=== PATIENT | female | born 1970 | race Caucasian/White ===

== ENCOUNTER 2018-12-22 21:04 | Emergency (ER) | payer OTHER ==
[~2018-12-22] VITALS: Ht 157.5 cm; Wt 102.1 kg
--- NOTE | 2018-12-22 21:28 | NUR ---
Dr. Curry GIL MD at bedside to evaluate pt.
[2018-12-22] MEDS ORDERED: MAGNESIUM SULFATE 2 GM in IV DEXTROSE 5% 100 ML IV ONE (21:30)
[2018-12-22] MEDS ORDERED: IPRATROPIUM BROMIDE 0.5 MG/2.5 ML NEBU NEB ONE (21:30)
[2018-12-22] MEDS ORDERED: ALBUTEROL SULFATE 2.5 MG/3 ML NEBU NEB ONE (21:30)
[2018-12-22] MEDS ORDERED: methylPREDNISolone SOD SUCC 125 MG/2 ML VIAL IV ONE (21:30)
[2018-12-22] MEDS ORDERED: ALBUTEROL SULFATE 2.5 MG/3 ML NEBU ONE (21:39)
[2018-12-22] MEDS ORDERED: IPRATROPIUM BROMIDE 0.5 MG/2.5 ML NEBU ONE (21:39)
[2018-12-22] MEDS ORDERED: MAGNESIUM SULFATE/D5W 200 ML ONE (21:41)
[2018-12-22] MEDS ORDERED: methylPREDNISolone SOD SUCC 125 MG/2 ML VIAL ONE (21:41)
[2018-12-22] MEDS ORDERED: HYDROMORPHONE 1 MG/1 ML DISP.SYRIN IV ONE ×2 (21:45→22:45)
[2018-12-22] MEDS ORDERED: ONDANSETRON IV *ER 4 MG/2 ML VIAL IV ONE ×2 (21:45→22:45)
[2018-12-22] MEDS ORDERED: ONDANSETRON 4 MG/2 ML VIAL ONE ×2 (21:48→22:38)
[2018-12-22] MEDS ORDERED: HYDROMORPHONE 1 MG/1 ML DISP.SYRIN ONE ×2 (21:48→22:38)
--- NOTE | 2018-12-22 23:25 | NUR ---
PATIENT STATES "I FEEL BETTER NOW."
--- NOTE | 2018-12-22 23:30 | NUR ---
IV removed. Catheter intact and site benign. Pressure and 4x4 gauze applied to site. No bleeding noted.
[2018-12-22 23:33] VITALS: BP 128/77
--- NOTE | 2018-12-22 23:33 | NUR ---
Patient discharged to home in stable conditon WITH DAUGHTER TAKING PATIENT HOME. Written and verbal after care instructions given. Patient verbalizes understanding of instructions. WALKED OUT OF ER WITH NO DISTRESS NOTED
== END 2018-12-22 23:34 | disposition home or self-care (01) ==
LOC: ER 21:08
DX: J45.909 Unspecified asthma, uncomplicated (principal); F17.200 Nicotine dependence, unspecified, uncomplicated; Z88.8 Allergy status to other drugs, medicaments and biological substances; Z91.040 Latex allergy status; Z88.0 Allergy status to penicillin
CPT/HCPCS: 71045; 94640; 96365; 96366; 96375; 96376; 99283; J1170 ×2; J2405 ×2; J2930; J3475; A4663; J3590

== ENCOUNTER 2018-12-28 23:21 | Emergency (ER) | payer OTHER ==
[~2018-12-28] VITALS: Ht 157.5 cm; Wt 98.4 kg
[2018-12-28] MEDS ORDERED: LORA0.5T PO (23:37)
[2018-12-28] MEDS ORDERED: PRED20TA PO (23:37)
[2018-12-28] MEDS ORDERED: THEO400T PO (23:37)
[2018-12-28] MEDS ORDERED: CETI-102 PO (23:37)
[2018-12-28] MEDS ORDERED: NYST5ORA PO (23:37)
[2018-12-28] MEDS ORDERED: ESCI20TA PO (23:37)
[2018-12-28] MEDS ORDERED: ALBU8HFA4 INH (23:37)
[2018-12-28] MEDS ORDERED: FLEXERIL PO (23:37)
[2018-12-28] MEDS ORDERED: MONT10TA22 PO (23:37)
[2018-12-28] MEDS ORDERED: ZOLP5TAB2 PO (23:37)
[2018-12-28] MEDS ORDERED: OXYC-133 PO (23:37)
[2018-12-28] MEDS ORDERED: BUDE10.2 IH (23:37)
[2018-12-28] MEDS ORDERED: IPRA3AMP22 IH (23:37)
[2018-12-28] MEDS ORDERED: SUMA50TA17 PO (23:37)
[2018-12-28] MEDS ORDERED: RANI150T43 PO (23:37)
[2018-12-28] MEDS ORDERED: ALBU2SYR10 IH (23:37)
[2018-12-28] MEDS ORDERED: ALBUTEROL SULFATE 2.5 MG/3 ML NEBU ONE (23:59)
[2018-12-28] MEDS ORDERED: IPRATROPIUM BROMIDE 0.5 MG/2.5 ML NEBU ONE (23:59)
[2018-12-29] MEDS ORDERED: IPRATROPIUM BROMIDE 0.5 MG/2.5 ML NEBU NEB ONE
[2018-12-29] MEDS ORDERED: ALBUTEROL SULFATE 2.5 MG/3 ML NEBU NEB ONE
[2018-12-29 00:04] LABS: BASOPHILS # (AUTO) 0.1 K/uL (0.0-8.0); BASOPHILS % (AUTO) 0.8 % (0.0-2.0); EOSINOPHILS # (AUTO) 0.2 K/uL (0.0-0.7); EOSINOPHILS % (AUTO) 1.2 % (0.0-7.0); HEMATOCRIT 38.4 % (31.2-41.9); HEMOGLOBIN 12.3 g/dL (10.9-14.3); LYMPHOCYTES # (AUTO) 5.8 K/uL (20.0-40.0); LYMPHOCYTES % (AUTO) 37.8 % (20.5-51.5); MEAN CORPUSCULAR HEMOGLOBIN 25.9 uug (24.7-32.8); MEAN CORPUSCULAR HGB CONC 32 g/dL (32.3-35.6); MONOCYTES # (AUTO) 0.9 K/uL (2.0-10.0); MONOCYTES % (AUTO) 5.8 % (0.0-11.0); NEUTROPHILS # (AUTO) 8.4 K/uL (1.8-8.9); NEUTROPHILS % (AUTO) 54.4 % (38.5-71.5); PLATELET COUNT (AUTO) 250 K/uL (179-408); RED BLOOD CELL COUNT(AUTO) 4.74 MIL/uL (3.63-4.92); WHITE BLOOD COUNT (AUTO) 15.4 K/uL (3.8-11.8)
[2018-12-29 00:15] LABS: CREATININE 1.1 mg/dL (0.6-1.3); POTASSIUM 3.3 mmol/L (3.5-5.1)
--- NOTE | 2018-12-29 00:15 | NUR ---
Called for med/surg bed - pt. to go into 318,
--- NOTE | 2018-12-29 00:16 | NUR ---
Called [facility] for panel call - awaiting call back from Dr. Tavarez,
[2018-12-29] MEDS ORDERED: HYDROMORPHONE 1 MG/1 ML DISP.SYRIN ONE (00:29)
[2018-12-29] MEDS ORDERED: HYDROMORPHONE 1 MG/1 ML DISP.SYRIN IV ONE (00:30)
[2018-12-29] MEDS ORDERED: ONDANSETRON 4 MG/2 ML VIAL ONE (00:38)
--- NOTE | 2018-12-29 00:39 | NUR ---
Dr. Rahman spoke with Dr. Corby Polk on telephone. Pending med/surg admission.
[2018-12-29] MEDS ORDERED: ONDANSETRON 4 MG/2 ML VIAL IV ONE (00:45)
[2018-12-29] MEDS ORDERED: POTASSIUM CHLORIDE 20 MEQ TAB.PRT.SR PO ONE (01:00)
[2018-12-29] MEDS ORDERED: POTASSIUM CHLORIDE 20 MEQ TAB.PRT.SR ONE (01:04)
--- NOTE | 2018-12-29 01:07 | NUR ---
Patient does not wish to proceed with medical care recommended by Dr. Rahman. Patient given information related to possible complications, up to and including , which could occur as a result of leaving the hospital at this time. Patient verbalizes understanding of risks involved due to leaving against medical advice. Patient has signed AMA form. Pt refuses inpatient admission.
--- NOTE | 2018-12-29 01:08 | NUR ---
IV removed. Catheter intact and site benign. Pressure and 4x4 gauze applied to site. No bleeding noted.
--- NOTE | 2018-12-29 01:09 | NUR ---
Patient discharged to home in stable conditon. Written and verbal after care instructions given. Patient verbalizes understanding of instructions. Pt walked out of ER in stable gait. Pt states, "My breathing is so much better." Pt's daughter is with her who will drive her home. All belongings w pt. VSS. NAD noted. Respirations even + unlabored.
[2018-12-29 01:12] VITALS: BP 117/86
== END 2018-12-29 01:12 | disposition home or self-care (01) ==
LOC: ER 23:21
DX: J44.9 Chronic obstructive pulmonary disease, unspecified (principal); F17.200 Nicotine dependence, unspecified, uncomplicated; Z88.8 Allergy status to other drugs, medicaments and biological substances; Z91.040 Latex allergy status; Z88.0 Allergy status to penicillin; Z79.899 Other long term (current) drug therapy
CPT/HCPCS: 36415; 80048; 85025; 93005; 94644; 96374; 96375; 99285; J1170; J2405; A4663; J3590

== ENCOUNTER 2019-01-06 20:35 | Emergency (ER) | payer OTHER ==
[~2019-01-06] VITALS: Ht 157.5 cm; Wt 98.4 kg
[~2019-01-06 20:35] MED LIST: ALBU2SYR10 IH; ALBU8HFA4 INH; BUDE10.2 IH; CETI-102 PO; ESCI20TA PO; FLEXERIL PO; IPRA3AMP22 IH; LORA0.5T PO; MONT10TA22 PO; NYST5ORA PO; OXYC-133 PO; PRED20TA PO; RANI150T43 PO; SUMA50TA17 PO; THEO400T PO; ZOLP5TAB2 PO
--- NOTE | 2019-01-06 21:10 | NUR ---
Pt walks into ER with multiple complaints. Pt state she is having jaw pain & right side rib pain x 2 weeks, & redness & swelling to left arm x 5 days. Pt states she saw her training intern & had cxr which was negative. EKG done. Pt placed on continuous cardiac monitoring showing NSR. Denies any chest pain. No N/V/D. Will continue to monitor. No acute distress noted. SA02 97% room air.
[2019-01-06] MEDS ORDERED: VANCOMYCIN IV 1,000 MG in IV DEXTROSE 5% 250 ML IV ONE (21:15)
[2019-01-06] MEDS ORDERED: IPRATROPIUM BROMIDE 0.5 MG/2.5 ML NEBU NEB ONE (21:15)
[2019-01-06] MEDS ORDERED: IV NORMAL SALINE 1000 ML BAG IV ONE (21:15)
[2019-01-06] MEDS ORDERED: OXYCODONE/APAP 5-325 MG TABLET PO ONE (21:15)
[2019-01-06] MEDS ORDERED: ALBUTEROL SULFATE 2.5 MG/3 ML NEBU NEB ONE ×2 (21:15→23:00)
[2019-01-06] MEDS ORDERED: ALBUTEROL SULFATE 2.5 MG/3 ML NEBU ONE ×2 (21:24→22:58)
[2019-01-06] MEDS ORDERED: IPRATROPIUM BROMIDE 0.5 MG/2.5 ML NEBU ONE (21:24)
[2019-01-06] MEDS ORDERED: VANCOMYCIN IV 200 ML ONE (21:33)
[2019-01-06] MEDS ORDERED: OXYCODONE/APAP 5-325 MG TABLET ONE ×2 (21:33→21:34)
[2019-01-06 21:39] LABS: BASOPHILS # (AUTO) 0.1 K/uL (0.0-8.0); BASOPHILS % (AUTO) 0.4 % (0.0-2.0); EOSINOPHILS # (AUTO) 0.1 K/uL (0.0-0.7); EOSINOPHILS % (AUTO) 0.8 % (0.0-7.0); HEMATOCRIT 38.8 % (31.2-41.9); HEMOGLOBIN 12.4 g/dL (10.9-14.3); LYMPHOCYTES # (AUTO) 3.2 K/uL (20.0-40.0); LYMPHOCYTES % (AUTO) 24.4 % (20.5-51.5); MEAN CORPUSCULAR HGB CONC 32 g/dL (32.3-35.6); MEAN CORPUSCULAR VOLUME 81.3 fL (75.5-95.3); MONOCYTES # (AUTO) 0.9 K/uL (2.0-10.0); MONOCYTES % (AUTO) 6.8 % (0.0-11.0); NEUTROPHILS % (AUTO) 67.6 % (38.5-71.5); PLATELET COUNT (AUTO) 242 K/uL (179-408); RED BLOOD CELL COUNT(AUTO) 4.77 MIL/uL (3.63-4.92); WHITE BLOOD COUNT (AUTO) 13.3 K/uL (3.8-11.8)
[2019-01-06 21:49] LABS: CREATININE 0.7 mg/dL (0.6-1.3); POTASSIUM 3.6 mmol/L (3.5-5.1)
[2019-01-06 21:55] LABS: BILIRUBIN,DIRECT 0.1 mg/dL (0.0-0.2); BILIRUBIN,TOTAL 0.1 mg/dL (0.2-1.0); TOTAL PROTEIN, SERUM 6.3 g/dL (6.4-8.2)
[2019-01-06] MEDS ORDERED: ONDANSETRON 4 MG/2 ML VIAL IV ONE (23:00)
[2019-01-06] MEDS ORDERED: HYDROMORPHONE 1 MG/1 ML DISP.SYRIN IV ONE (23:00)
[2019-01-06] MEDS ORDERED: HYDROMORPHONE 1 MG/1 ML DISP.SYRIN ONE (23:07)
[2019-01-06] MEDS ORDERED: ONDANSETRON 4 MG/2 ML VIAL ONE (23:07)
--- NOTE | 2019-01-06 23:38 | NUR ---
Pt states she feels better. No acute distress noted.
--- NOTE | 2019-01-07 00:14 | NUR ---
Patient discharged to home in stable conditon. Written and verbal after care instructions given. Patient verbalizes understanding of instructions. Pt left ER in stable gait. All belongings w pt. VSS. No acute distress noted. Pt family to drive her home.
--- NOTE | 2019-01-07 00:14 | NUR ---
ivIV removed. Catheter intact and site benign. Pressure and 4x4 gauze applied to site. No bleeding noted.
[2019-01-07 00:42] VITALS: BP 145/82
== END 2019-01-07 00:44 | disposition home or self-care (01) ==
LOC: ER 20:35
DX: J45.901 Unspecified asthma with (acute) exacerbation (principal); L53.9 Erythematous condition, unspecified; K21.9 Gastro-esophageal reflux disease without esophagitis; F17.200 Nicotine dependence, unspecified, uncomplicated; Z88.8 Allergy status to other drugs, medicaments and biological substances; Z91.040 Latex allergy status; Z88.0 Allergy status to penicillin; Z79.899 Other long term (current) drug therapy
CPT/HCPCS: 36415; 71045; 80048; 80076; 84484; 85025; 93005; 94640 ×2; 96365; 96375; 99291; J1170; J2405; J3370; 70030-TC; A4663; J3590; J7030

== ENCOUNTER 2019-02-13 20:49 | Emergency (ER) | payer OTHER ==
[~2019-02-13] VITALS: Ht 157.5 cm; Wt 98.0 kg
[~2019-02-13 20:49] MED LIST changes: +RANI-655 PO; -RANI150T43 PO
[2019-02-13] MEDS ORDERED: PRED20TA PO (20:57)
--- NOTE | 2019-02-13 21:00 | NUR ---
PATIENT WALKED INTO ER C/O SOB WITH COUGH DUE TO ASTHMA X1 WEEK. PATIENT C/O CP DUE TO COUGH. HERE FOR WORSENING SYMPTOMS
[2019-02-13] MEDS ORDERED: methylPREDNISolone SOD SUCC 125 MG/2 ML VIAL ONE (21:30)
[2019-02-13] MEDS ORDERED: ALBUTEROL SULFATE 2.5 MG/3 ML NEBU NEB ONE (21:30)
[2019-02-13] MEDS ORDERED: methylPREDNISolone SOD SUCC 125 MG/2 ML VIAL IV ONE (21:30)
[2019-02-13] MEDS ORDERED: IV NORMAL SALINE 1000 ML BAG IV ONE (21:30)
[2019-02-13] MEDS ORDERED: IPRATROPIUM BROMIDE 0.5 MG/2.5 ML NEBU NEB ONE (21:30)
[2019-02-13] MEDS ORDERED: ALBUTEROL SULFATE 2.5 MG/3 ML NEBU ONE (21:31)
[2019-02-13] MEDS ORDERED: IPRATROPIUM BROMIDE 0.5 MG/2.5 ML NEBU ONE (21:31)
[2019-02-13] MEDS ORDERED: ALBUTEROL SULFATE 2.5 MG/ 0.5 ML NEBU ONE (21:31)
[2019-02-13 21:34] LABS: BASOPHILS # (AUTO) 0.1 K/uL (0.0-8.0); EOSINOPHILS # (AUTO) 0.1 K/uL (0.0-0.7); MONOCYTES # (AUTO) 0.9 K/uL (2.0-10.0)
[2019-02-13 21:37] LABS: BASOPHILS % (AUTO) 0.5 % (0.0-2.0); EOSINOPHILS % (AUTO) 0.4 % (0.0-7.0); HEMATOCRIT 40.2 % (31.2-41.9); HEMOGLOBIN 13.3 g/dL (10.9-14.3); LYMPHOCYTES # (AUTO) 3.9 K/uL (20.0-40.0); LYMPHOCYTES % (AUTO) 23.1 % (20.5-51.5); MEAN CORPUSCULAR HEMOGLOBIN 27.4 uug (24.7-32.8); MEAN CORPUSCULAR HGB CONC 33 g/dL (32.3-35.6); MEAN CORPUSCULAR VOLUME 82.9 fL (75.5-95.3); MONOCYTES % (AUTO) 5.3 % (0.0-11.0); NEUTROPHILS # (AUTO) 11.9 K/uL (1.8-8.9); NEUTROPHILS % (AUTO) 70.7 % (38.5-71.5); PLATELET COUNT (AUTO) 292 K/uL (179-408); RED BLOOD CELL COUNT(AUTO) 4.84 MIL/uL (3.63-4.92); WHITE BLOOD COUNT (AUTO) 16.8 K/uL (3.8-11.8)
[2019-02-13 21:43] LABS: CARBON DIOXIDE 30 mmol/L (21-32); CHLORIDE 104 mmol/L (98-107); CREATININE 0.9 mg/dL (0.6-1.3); GLUCOSE 140 mg/dL (74-106); POTASSIUM 3.5 mmol/L (3.5-5.1); UREA NITROGEN, BLOOD 21 mg/dL (7-18)
[2019-02-13] MEDS ORDERED: FENTANYL CITRATE 100 MCG/2 ML AMPUL IV ONE (21:45)
[2019-02-13] MEDS ORDERED: FENTANYL CITRATE 100 MCG/2 ML AMPUL ONE (21:53)
[2019-02-13 21:55] LABS: ALANINE AMINOTRANSFERASE 34 U/L (14-59); ALKALINE PHOSPHATASE 83 U/L (50-136); ASPARTATE AMINOTRANSFERASE 12 U/L (15-37); BILIRUBIN,DIRECT < 0.1 mg/dL (0.0-0.2); BILIRUBIN,TOTAL 0.2 mg/dL (0.2-1.0); TOTAL PROTEIN, SERUM 6.8 g/dL (6.4-8.2)
[2019-02-13] MEDS ORDERED: IOHEXOL 350 100 ML INFUS..BTL ONE (22:27)
[2019-02-13] MEDS ORDERED: SWABABLE VALVE TRANSFER SET EA MC ONE (22:27)
[2019-02-13] MEDS ORDERED: IV NORMAL SALINE 250 ML IV ONE (22:27)
--- NOTE | 2019-02-13 22:33 | NUR ---
PATIENT OUT OF UNIT FOR CT SCAN VIA GURNY
--- NOTE | 2019-02-13 22:55 | NUR ---
PATIENT BACK FROM CT SCAN C/O CHEST WALL PAIN
--- NOTE | 2019-02-13 22:58 | NUR ---
PATIENT C/O CHEST WALL PAIN STATING "THE PAIN CAME BACK AFTER THE CT SCAN."
[2019-02-13] MEDS ORDERED: ONDANSETRON IV *ER 4 MG/2 ML VIAL IV ONE (23:15)
[2019-02-13] MEDS ORDERED: HYDROMORPHONE 1 MG/1 ML DISP.SYRIN IV ONE (23:15)
[2019-02-13] MEDS ORDERED: HYDROMORPHONE 1 MG/1 ML DISP.SYRIN ONE (23:19)
[2019-02-13] MEDS ORDERED: ONDANSETRON 4 MG/2 ML VIAL ONE (23:19)
--- NOTE | 2019-02-13 23:57 | NUR ---
IV removed. Catheter intact and site benign. Pressure and 4x4 gauze applied to site. No bleeding noted.
[2019-02-14 00:02] VITALS: BP 120/74
== END 2019-02-14 00:03 | disposition home or self-care (01) ==
LOC: ER 20:51
DX: J44.9 Chronic obstructive pulmonary disease, unspecified (principal); J45.901 Unspecified asthma with (acute) exacerbation; K21.9 Gastro-esophageal reflux disease without esophagitis; F17.200 Nicotine dependence, unspecified, uncomplicated; Z88.8 Allergy status to other drugs, medicaments and biological substances; Z91.040 Latex allergy status; Z88.0 Allergy status to penicillin; Z79.891 Long term (current) use of opiate analgesic; Z79.899 Other long term (current) drug therapy
CPT/HCPCS: 36415; 71045; 71275; 80048; 80076; 83880; 84484; 85025; 85379; 85730; 93005; 94644; 96374; 96375; 99285; J1170; J2405; J2930; J3010; Q9967; 70030-TC; A4663; J3590; J7030; J7050

== ENCOUNTER 2019-02-14 19:29 | Emergency (ER) | payer OTHER ==
[~2019-02-14] VITALS: Ht 157.5 cm; Wt 98.4 kg
--- NOTE | 2019-02-14 19:39 | NUR ---
DR. ESPINAL AT BEDSIDE FOR MSE.
[2019-02-14] MEDS ORDERED: ALBUTEROL SULFATE 2.5 MG/3 ML NEBU NEB ONE (19:45)
[2019-02-14] MEDS ORDERED: IPRATROPIUM BROMIDE 0.5 MG/2.5 ML NEBU NEB ONE (19:45)
[2019-02-14] MEDS ORDERED: predniSONE 10 MG TABLET PO ONE (19:45)
[2019-02-14] MEDS ORDERED: HYDROMORPHONE HCL 2 MG TABLET PO ONE (19:45)
[2019-02-14] MEDS ORDERED: HYDROMORPHONE HCL 2 MG TABLET ONE (19:49)
[2019-02-14] MEDS ORDERED: predniSONE 10 MG TABLET ONE (19:49)
[2019-02-14] MEDS ORDERED: ALBUTEROL SULFATE 2.5 MG/3 ML NEBU ONE (19:53)
[2019-02-14] MEDS ORDERED: IPRATROPIUM BROMIDE 0.5 MG/2.5 ML NEBU ONE (19:53)
--- NOTE | 2019-02-14 20:07 | NUR ---
Patient discharged to home in stable conditon. Written and verbal after care instructions given. Patient verbalizes understanding of instructions. PATIENT LEFT WITH STABLE GAIT.
[2019-02-14 20:08] VITALS: BP 147/82
== END 2019-02-14 20:08 | disposition home or self-care (01) ==
LOC: ER 19:31
DX: J44.1 Chronic obstructive pulmonary disease with (acute) exacerbation (principal); Z71.6 Tobacco abuse counseling; K21.9 Gastro-esophageal reflux disease without esophagitis; F17.290 Nicotine dependence, other tobacco product, uncomplicated; Z88.0 Allergy status to penicillin; Z88.8 Allergy status to other drugs, medicaments and biological substances; Z91.040 Latex allergy status; Z79.899 Other long term (current) drug therapy
CPT/HCPCS: 94640; 99283; 99406; J7512; A4663; J3590

== ENCOUNTER 2019-02-20 21:41 | Emergency (ER) | payer OTHER ==
[~2019-02-20] VITALS: Ht 157.5 cm; Wt 98.4 kg
[~2019-02-20 21:41] MED LIST changes: -RANI-655 PO; +RANI150T43 PO
[2019-02-20] MEDS ORDERED: PRED20TA PO (22:16)
--- NOTE | 2019-02-20 23:00 | NUR ---
PATIENT WAS MSE BY DR YEPEZ IN ROOM 05A.
[2019-02-20] MEDS ORDERED: HYDROCODONE/APAP 10-325 MG TABLET ONE (23:15)
[2019-02-20] MEDS ORDERED: HYDROCODONE/APAP 10-325 MG TABLET PO ONE (23:15)
[2019-02-20 23:27] VITALS: BP 128/79
--- NOTE | 2019-02-20 23:28 | NUR ---
Patient discharged to home in stable conditon. Written and verbal after care instructions given. Patient and daughter verbalizes understanding of instructions.
== END 2019-02-20 23:38 | disposition home or self-care (01) ==
LOC: ER 21:41
DX: G89.29 Other chronic pain (principal); R09.1 Pleurisy; J45.909 Unspecified asthma, uncomplicated; K21.9 Gastro-esophageal reflux disease without esophagitis; F17.200 Nicotine dependence, unspecified, uncomplicated; Z88.0 Allergy status to penicillin; Z88.8 Allergy status to other drugs, medicaments and biological substances; Z91.040 Latex allergy status; Z79.899 Other long term (current) drug therapy
CPT/HCPCS: 93005; A4663

== ENCOUNTER 2019-02-27 18:56 | Emergency (ER) | payer OTHER ==
[~2019-02-27] VITALS: Ht 157.5 cm; Wt 98.4 kg
--- NOTE | 2019-02-27 19:20 | NUR ---
Patient ambulated with stable gait. Speech is clear, speaks in complete sentences. No neuro deficits. Patient came for c/o coughing/shortness of breath/ pain. @ 1500 patient reported having an asthma attack at home, she reported having x5 breathing tx - albuterol+ipratropium and lead to unresolved symptoms. She stated she is expectorating phlegm that is yellow-green in color. Wheezing noted in all lobes of left lung, and base of right lung.No cardiovascular distress noted. Patient c/o pain in her RLQ of abdomen, when she coughs. Patient in bed at lowest position, sr upx2, call light within reach. Fall precautinos implemented per protocol.
--- NOTE | 2019-02-27 19:28 | NUR ---
ERMD at bedside for MSE
[2019-02-27] MEDS ORDERED: ONDANSETRON 4 MG/2 ML VIAL IM ONE ×2 (19:30→21:00)
[2019-02-27] MEDS ORDERED: IPRATROPIUM BROMIDE 0.5 MG/2.5 ML NEBU NEB ONE (19:30)
[2019-02-27] MEDS ORDERED: ALBUTEROL SULFATE 2.5 MG/3 ML NEBU NEB ONE (19:30)
[2019-02-27] MEDS ORDERED: HYDROMORPHONE 1 MG/1 ML DISP.SYRIN IM ONE ×2 (19:30→21:00)
[2019-02-27] MEDS ORDERED: ONDANSETRON 4 MG/2 ML VIAL ONE ×2 (19:36→21:27)
[2019-02-27] MEDS ORDERED: HYDROMORPHONE 2 MG/1 ML DISP.SYRIN ONE ×2 (19:36→21:27)
[2019-02-27] MEDS ORDERED: ALBUTEROL SULFATE 2.5 MG/3 ML NEBU ONE (19:56)
[2019-02-27] MEDS ORDERED: IPRATROPIUM BROMIDE 0.5 MG/2.5 ML NEBU ONE (19:56)
--- NOTE | 2019-02-27 21:06 | NUR ---
US tech at bedside for scan of gallbladder.
--- NOTE | 2019-02-27 21:20 | NUR ---
Patient discharged to home in stable conditon. Written and verbal after care instructions given. Patient verbalizes understanding of instructions. Patient ambulated with stable gait. Instructed patient not to drive, states daughter will be driving.
[2019-02-27 22:10] VITALS: BP 128/71
== END 2019-02-27 21:20 | disposition home or self-care (01) ==
LOC: ER 19:00
DX: J06.9 Acute upper respiratory infection, unspecified (principal); R10.11 Right upper quadrant pain; J45.909 Unspecified asthma, uncomplicated; K21.9 Gastro-esophageal reflux disease without esophagitis; F17.200 Nicotine dependence, unspecified, uncomplicated; Z88.0 Allergy status to penicillin; Z88.8 Allergy status to other drugs, medicaments and biological substances; Z91.040 Latex allergy status; Z79.899 Other long term (current) drug therapy
CPT/HCPCS: 71045; 76705; 94640; 96372 ×4; 99284; J1170 ×2; J2405 ×2; A4663; J3590

== ENCOUNTER 2019-03-12 22:27 | Inpatient (IN) | payer OTHER ==
[~2019-03-12] VITALS: Ht 157.5 cm; Wt 104.4 kg
[2019-03-12] MEDS ORDERED: ONDANSETRON HYDROCHLORIDE 4 MG (22:44)
[2019-03-12] MEDS ORDERED: CEFTRIAXONE 1 G in IV DEXTROSE 5% 50 ML IV ONE (22:45)
[2019-03-12] MEDS ORDERED: IV NORMAL SALINE 1000 ML BAG IV ONE (22:45)
--- NOTE | 2019-03-12 22:45 | NUR ---
DR. ESPINAL AT [facility] FOR MSE.
--- NOTE | 2019-03-12 22:50 | NUR ---
PATIENT WALKED IN FROM HOME, ALERT AND ORIENTED X4, WITH C/O GENERALIZED BODY, AND SHORTNESS OF BREATH. EKG DONE, IV LINE ESTABLISHED AND BLOOD DRAWN.
[2019-03-12 23:03] LABS: BASOPHILS # (AUTO) 0.1 K/uL (0.0-8.0); BASOPHILS % (AUTO) 0.7 % (0.0-2.0); EOSINOPHILS # (AUTO) 0.4 K/uL (0.0-0.7); EOSINOPHILS % (AUTO) 1.9 % (0.0-7.0); HEMATOCRIT 43.1 % (31.2-41.9); HEMOGLOBIN 13.5 g/dL (10.9-14.3); LYMPHOCYTES # (AUTO) 5.3 K/uL (20.0-40.0); LYMPHOCYTES % (AUTO) 28.2 % (20.5-51.5); MEAN CORPUSCULAR HEMOGLOBIN 26.2 uug (24.7-32.8); MEAN CORPUSCULAR HGB CONC 31 g/dL (32.3-35.6); MEAN CORPUSCULAR VOLUME 83.5 fL (75.5-95.3); MONOCYTES # (AUTO) 1.3 K/uL (2.0-10.0); MONOCYTES % (AUTO) 6.9 % (0.0-11.0); NEUTROPHILS # (AUTO) 11.7 K/uL (1.8-8.9); NEUTROPHILS % (AUTO) 62.3 % (38.5-71.5); PLATELET COUNT (AUTO) 315 K/uL (179-408); RED BLOOD CELL COUNT(AUTO) 5.16 MIL/uL (3.63-4.92); WHITE BLOOD COUNT (AUTO) 18.8 K/uL (3.8-11.8)
[2019-03-12] MEDS ORDERED: CEFTRIAXONE 1 G VIAL ONE (23:06)
[2019-03-12 23:10] LABS: CREATININE 1.1 mg/dL (0.6-1.3); POTASSIUM 3.8 mmol/L (3.5-5.1)
[2019-03-12] MEDS ORDERED: IPRATROPIUM BROMIDE 0.5 MG/2.5 ML NEBU NEB ONE (23:15)
[2019-03-12] MEDS ORDERED: MORPHINE SULFATE 10 MG/1 ML DISP.SYRIN IV ONE (23:15)
[2019-03-12] MEDS ORDERED: methylPREDNISolone SOD SUCC 125 MG/2 ML VIAL IV ONE (23:15)
[2019-03-12] MEDS ORDERED: ONDANSETRON IV *ER 4 MG/2 ML VIAL IV ONE (23:15)
[2019-03-12] MEDS ORDERED: GUAIFENESIN/CODEINE 5 ML LIQUID UDC PO ONE (23:15)
[2019-03-12] MEDS ORDERED: ALBUTEROL SULFATE 2.5 MG/3 ML NEBU NEB ONE (23:15)
[2019-03-12] MEDS ORDERED: methylPREDNISolone SOD SUCC 125 MG/2 ML VIAL ONE (23:18)
[2019-03-12] MEDS ORDERED: GUAIFENESIN/CODEINE 5 ML LIQUID UDC ONE ×2 (23:18→23:19)
[2019-03-12] MEDS ORDERED: ONDANSETRON 4 MG/2 ML VIAL ONE (23:18)
[2019-03-12 23:23] LABS: BILIRUBIN,DIRECT 0.1 mg/dL (0.0-0.2); BILIRUBIN,TOTAL 0.5 mg/dL (0.2-1.0); TOTAL PROTEIN, SERUM 7.4 g/dL (6.4-8.2)
[2019-03-12] MEDS ORDERED: MORPHINE SULFATE 2 MG/1 ML DISP.SYRIN ONE (23:24)
[2019-03-12] MEDS ORDERED: MORPHINE SULFATE 4 MG/1 ML DISP.SYRIN ONE (23:24)
[2019-03-12] MEDS ORDERED: ALBUTEROL SULFATE 2.5 MG/3 ML NEBU ONE (23:26)
[2019-03-12] MEDS ORDERED: IPRATROPIUM BROMIDE 0.5 MG/2.5 ML NEBU ONE (23:26)
[2019-03-13] MEDS ORDERED: HYDROMORPHONE 1 MG/1 ML DISP.SYRIN IV ONE ×2 (00:15→02:00)
[2019-03-13] MEDS ORDERED: HYDROMORPHONE 1 MG/1 ML DISP.SYRIN ONE ×2 (00:22→02:22)
[2019-03-13] MEDS ORDERED: SWABABLE VALVE TRANSFER SET EA MC ONE (00:34)
[2019-03-13] MEDS ORDERED: IV NORMAL SALINE 250 ML IV ONE (00:35)
[2019-03-13] MEDS ORDERED: IOHEXOL 350 100 ML INFUS..BTL ONE (00:35)
--- NOTE | 2019-03-13 01:04 | NUR ---
PATIENT BACK FROM CT SCAN.
[2019-03-13] MEDS ORDERED: ONDANSETRON 4 MG/2 ML VIAL ONE (01:30)
[2019-03-13] MEDS ORDERED: ONDANSETRON IV *ER 4 MG/2 ML VIAL IV ONE (01:30)
[2019-03-13] MEDS ORDERED: LEVOFLOXACIN 750MG/D5W 150 ML IV ONE (01:57)
[2019-03-13] MEDS ORDERED: LEVOFLOXACIN 750 MG/D5W 150 ML PIGGYBACK IV ONE (02:00)
--- NOTE | 2019-03-13 02:06 | NUR ---
LESLY CALLED, SERVANDO HUFFMAN, AWAITING CALL BACK.
--- NOTE | 2019-03-13 02:14 | NUR ---
Pt. admitted to TELE , under care of Dr. AL Belongs List completed.
[2019-03-13] MEDS ORDERED: Z GUARD REMEDY PASTE 57 GM TUBE TOP PRN (02:30)
[2019-03-13] MEDS ORDERED: HYDROCODONE/APAP 5-325MG TABLET PO PRN (02:30)
[2019-03-13] MEDS ORDERED: MAGNESIUM HYDROXIDE 30 ML LIQUID UDC PO PRN (02:30)
[2019-03-13] MEDS ORDERED: ACETAMINOPHEN 325 MG TABLET PO PRN (02:30)
[2019-03-13 02:43] LABS: *BILIRUBIN,URIN NEGATIVE (NEGATIVE); *CLARITY,URINE CLEAR (CLEAR); *COLOR,URINE YELLOW (YELLOW); *KETONES,URINE NEGATIVE (NEGATIVE); *UROBILINOGEN,URINE 0.2 E.U./dl (NORMAL); LEUKOCYTE ESTERASE ,URINE NEGATIVE (NEGATIVE); NITRITE, URINE NEGATIVE (NEGATIVE); PH,URINE 5.5 (5.0-8.0); UGLUCOSE NEGATIVE (NEGATIVE)
[2019-03-13 02:44] LABS: *BLOOD, URINE TRACE (NEGATIVE)
[2019-03-13 02:50] LABS: BACTERIA,URINE NONE SEEN /HPF (NONE SEEN); RBC,URINE 0-3 /HPF (0-3); SQUAMOUS EPITHELIAL CELL,UR FEW /HPF (NONE SEEN); WBC,URINE 0-3 /HPF (0-3)
[2019-03-13 03:10] VITALS: BP 120/62
--- NOTE | 2019-03-13 03:15 | NUR ---
Received patient from ER. Dx: PNA. Patient is A/Ox4, ambulated to bed with a steady gait. No signs of acute distress noted. Complains of sharp pain in the rib area when coughing. Patient belongings and list with patient. IV on the right AC with antibiotic running. Patient on 2L NC and about to received breathing treatment, noted with non-productive coughing. Vitals WNL. Safety measures initiated. Bed is low and locked, call light within reach. Will continue with admission process.
[2019-03-13] MEDS: IPRATROPIUM BROMIDE 0.5 MG/2.5 ML NEBU NEB SCH ×5 (03:19→19:28)
[2019-03-13] MEDS: ALBUTEROL SULFATE 2.5 MG/ 0.5 ML NEBU NEB SCH ×5 (03:19→19:28)
[2019-03-13] MEDS: ONDANSETRON 4 MG/2 ML VIAL IV PRN ×4 (04:03→23:55)
[2019-03-13] MEDS: HYDROMORPHONE 1 MG/1 ML DISP.SYRIN IV PRN ×5 (04:03→21:29)
[2019-03-13] MEDS: methylPREDNISolone SOD SUCC 125 MG/2 ML VIAL IV SCH ×3 (06:20→21:28)
[2019-03-13 06:23] LABS: BASOPHILS # (AUTO) 0.1 K/uL (0.0-8.0); BASOPHILS % (AUTO) 0.4 % (0.0-2.0); EOSINOPHILS % (AUTO) 0.1 % (0.0-7.0); HEMATOCRIT 38.8 % (31.2-41.9); HEMOGLOBIN 12.2 g/dL (10.9-14.3); LYMPHOCYTES % (AUTO) 8.1 % (20.5-51.5); MEAN CORPUSCULAR HEMOGLOBIN 26.7 uug (24.7-32.8); MEAN CORPUSCULAR HGB CONC 32 g/dL (32.3-35.6); MEAN CORPUSCULAR VOLUME 84.8 fL (75.5-95.3); MONOCYTES # (AUTO) 0.1 K/uL (2.0-10.0); MONOCYTES % (AUTO) 1.1 % (0.0-11.0); NEUTROPHILS # (AUTO) 11.4 K/uL (1.8-8.9); NEUTROPHILS % (AUTO) 90.3 % (38.5-71.5); PLATELET COUNT (AUTO) 274 K/uL (179-408); RED BLOOD CELL COUNT(AUTO) 4.58 MIL/uL (3.63-4.92); WHITE BLOOD COUNT (AUTO) 12.7 K/uL (3.8-11.8)
[2019-03-13 06:45] LABS: CREATININE 1.1 mg/dL (0.6-1.3); MAGNESIUM 1.7 mg/dL (1.8-2.4); PHOSPHOROUS 3.6 mg/dL (2.5-4.9); POTASSIUM 4.1 mmol/L (3.5-5.1)
[2019-03-13] MEDS ORDERED: ALBUTEROL SULFATE 2.5 MG/3 ML NEBU NEB SCH (07:05)
[2019-03-13] MEDS: ENOXAPARIN SODIUM 40 MG/0.4 ML DISP.SYRIN SQ SCH (08:30)
[2019-03-13] MEDS: MAGNESIUM SULFATE/D5W 100 ML IV SCH ×2 (10:49→12:16)
[2019-03-13] MEDS ORDERED: ONDA4TAB5 PO (11:27)
[2019-03-13] MEDS: IPRATROPIUM BROMIDE 0.5 MG/2.5 ML NEBU NEB PRN ×2 (11:40→22:05)
--- NOTE | 2019-03-13 11:40 | NUR ---
RT SELECTED THE PRN TX NOT THE W.A.
[2019-03-13 12:00] VITALS: BP 110/62
[2019-03-13 16:05] VITALS: BP 115/63
--- NOTE | 2019-03-13 18:15 | NUR ---
RECEIVED PATIENT FROM [facility]. PATIENT DENIES PAIN OF SOB AT THIS TIME. ALL NEEDS MET. SAFETY AND FALL PRECAUTIONS IN PLACE. WILL CONTINUE TO MONITOR AND WILL GIVE REPORT TO ONCOMING ISREAL SHIFT NURSE.
--- NOTE | 2019-03-13 19:30 | NUR ---
patient received lying in bed. a/ox4. no signs of acute distress. receiving nebulizer treatment at this time. provided comfort and safety measures. bed in lowest position, side rails upx2, call light within reach. will continue care for patient.
--- NOTE | 2019-03-13 21:29 | NUR ---
c/o of pain. dilaudid administered. tolerated well.
[2019-03-13] MEDS: ALBUTEROL SULFATE 2.5 MG/3 ML NEBU NEB PRN (22:05)
[2019-03-13] MEDS ORDERED: LEVOFLOXACIN 750MG/D5W 750 MG in PREMIXED 1 EACH IV SCH (23:00)
[2019-03-14] MEDS: HYDROMORPHONE 1 MG/1 ML DISP.SYRIN IV PRN ×3 (01:48→10:04)
--- NOTE | 2019-03-14 02:01 | NUR ---
c/o of pain. administered dilaudid. patient tolerated well.
[2019-03-14] MEDS: ALBUTEROL SULFATE 2.5 MG/3 ML NEBU NEB PRN (03:36)
[2019-03-14] MEDS: IPRATROPIUM BROMIDE 0.5 MG/2.5 ML NEBU NEB PRN (03:36)
[2019-03-14] MEDS: methylPREDNISolone SOD SUCC 125 MG/2 ML VIAL IV SCH (05:33)
--- NOTE | 2019-03-14 05:51 | NUR ---
c/o of pain. administered Dilaudid. tolerated well.
--- NOTE | 2019-03-14 06:33 | NUR ---
patient intermittently sleeping. a/o x4. no signs of acute distress. provided safety and comfort measures. all medications prescribed as well as pain medication dilaudid. patient tolerated well. iv intact and patent. will endorse care to morning nurse.
[2019-03-14 06:35] LABS: CREATININE 0.9 mg/dL (0.6-1.3); MAGNESIUM 2.2 mg/dL (1.8-2.4); POTASSIUM 4.1 mmol/L (3.5-5.1)
--- NOTE | 2019-03-14 07:10 | NUR ---
RECEIVED PATIENT LAYING IN BED RESTING, MILD DISTRESS NOTED PATIENT STATING IT WAS HARD TO CATCH BREATH. RESPIRATORY GIVING TREATMENT. PATIENT NOTED TO BE RED AND HOT TEMPERATURE TAKEN AND WNL. BED IN LOWEST POSITION, SIDE RAILS UP X2, CALL LIGHT WITHIN REACH. WILL CONTINUE TO MONITOR.
[2019-03-14] MEDS: IPRATROPIUM BROMIDE 0.5 MG/2.5 ML NEBU NEB SCH (07:34)
[2019-03-14] MEDS: ALBUTEROL SULFATE 2.5 MG/ 0.5 ML NEBU NEB SCH (07:34)
[2019-03-14 08:00] VITALS: BP 124/70
[2019-03-14] MEDS: ENOXAPARIN SODIUM 40 MG/0.4 ML DISP.SYRIN SQ SCH (09:04)
[2019-03-14] MEDS: ONDANSETRON 4 MG/2 ML VIAL IV PRN (10:04)
--- NOTE | 2019-03-14 11:15 | NUR ---
Patient discharged home, patient in stable condition per MD. Discharge instructions reviewed, patient verbalizes understanding. D/C patient via wheelchair.
== END 2019-03-14 11:20 | disposition home or self-care (01) | DRG 139 ==
LOC: ER 22:28 → TELE3 03-13 02:39 → MEDSURG3 03-13 09:06
PROVIDERS: ADMIT Nurse Practitioner Acute Care; ATTEND Internal Medicine
DX: J15.9 Unspecified bacterial pneumonia (principal); J96.01 Acute respiratory failure with hypoxia; E66.01 Morbid (severe) obesity due to excess calories; J45.901 Unspecified asthma with (acute) exacerbation; E24.2 Drug-induced Cushing's syndrome; Z68.41 Body mass index [BMI] 40.0-44.9, adult; E78.5 Hyperlipidemia, unspecified; Z79.51 Long term (current) use of inhaled steroids; M79.7 Fibromyalgia; K21.9 Gastro-esophageal reflux disease without esophagitis; L30.9 Dermatitis, unspecified; Z88.0 Allergy status to penicillin; Z98.891 History of uterine scar from previous surgery; Z91.040 Latex allergy status; Z79.899 Other long term (current) drug therapy; Z87.891 Personal history of nicotine dependence
CPT/HCPCS: 36415; 70030-TC; 71045; 71275; 82785; 83605; 83735; 84100; 85025; 87040; 87086; 87400; 93005; 94640; 94664; A4663; G0378; J0696; J1170; J1650; J1956; J2270; J2405; J2930; J3475; J3590; J7030; J7050; J7060; Q9967

== ENCOUNTER 2019-04-16 09:45 | Emergency (ER) | payer OTHER ==
[~2019-04-16] VITALS: Ht 157.5 cm; Wt 98.4 kg
[~2019-04-16 09:45] MED LIST changes: -ALBU2SYR10 IH; -FLEXERIL PO; +ONDA4TAB5 PO; -OXYC-133 PO; +RANI-655 PO; -RANI150T43 PO; -SUMA50TA17 PO
--- NOTE | 2019-04-16 10:05 | NUR ---
LOUISE BATRES AT BEDSIDE FOR MSE.
[2019-04-16] MEDS: IV NORMAL SALINE 1000 ML BAG IV ONE (10:17)
[2019-04-16] MEDS: ONDANSETRON 4 MG/2 ML VIAL IV ONE (10:20)
[2019-04-16] MEDS: methylPREDNISolone SOD SUCC 125 MG/2 ML VIAL IV ONE (10:21)
[2019-04-16 10:22] LABS: BASOPHILS # (AUTO) 0.1 K/uL (0.0-8.0); BASOPHILS % (AUTO) 0.7 % (0.0-2.0); EOSINOPHILS # (AUTO) 0.1 K/uL (0.0-0.7); EOSINOPHILS % (AUTO) 0.5 % (0.0-7.0); HEMATOCRIT 40.8 % (31.2-41.9); HEMOGLOBIN 12.8 g/dL (10.9-14.3); LYMPHOCYTES # (AUTO) 2.6 K/uL (20.0-40.0); LYMPHOCYTES % (AUTO) 19.8 % (20.5-51.5); MEAN CORPUSCULAR HEMOGLOBIN 26.4 uug (24.7-32.8); MEAN CORPUSCULAR HGB CONC 32 g/dL (32.3-35.6); MEAN CORPUSCULAR VOLUME 83.7 fL (75.5-95.3); MONOCYTES # (AUTO) 0.8 K/uL (2.0-10.0); MONOCYTES % (AUTO) 5.8 % (0.0-11.0); NEUTROPHILS # (AUTO) 9.7 K/uL (1.8-8.9); NEUTROPHILS % (AUTO) 73.2 % (38.5-71.5); PLATELET COUNT (AUTO) 291 K/uL (179-408); RED BLOOD CELL COUNT(AUTO) 4.87 MIL/uL (3.63-4.92); WHITE BLOOD COUNT (AUTO) 13.3 K/uL (3.8-11.8)
[2019-04-16] MEDS ORDERED: methylPREDNISolone SOD SUCC 125 MG/2 ML VIAL ONE (10:22)
[2019-04-16] MEDS ORDERED: ONDANSETRON 4 MG/2 ML VIAL ONE ×2 (10:22→11:32)
[2019-04-16] MEDS ORDERED: HYDROMORPHONE 2 MG/1 ML DISP.SYRIN ONE (10:22)
[2019-04-16] MEDS: HYDROMORPHONE 1 MG/1 ML DISP.SYRIN IV ONE ×2 (10:24→11:33)
[2019-04-16] MEDS: IPRATROPIUM BROMIDE 0.5 MG/2.5 ML NEBU NEB ONE ×2 (10:25→11:38)
[2019-04-16] MEDS: ALBUTEROL SULFATE 2.5 MG/3 ML NEBU NEB ONE ×2 (10:25→11:38)
[2019-04-16] MEDS ORDERED: ALBUTEROL SULFATE 2.5 MG/3 ML NEBU ONE ×2 (10:25→11:33)
[2019-04-16] MEDS ORDERED: IPRATROPIUM BROMIDE 0.5 MG/2.5 ML NEBU ONE ×2 (10:25→11:33)
[2019-04-16 10:32] LABS: CREATININE 0.9 mg/dL (0.6-1.3); POTASSIUM 3.9 mmol/L (3.5-5.1)
[2019-04-16 10:45] LABS: BILIRUBIN,DIRECT 0.1 mg/dL (0.0-0.2); BILIRUBIN,TOTAL 0.3 mg/dL (0.2-1.0); TOTAL PROTEIN, SERUM 6.8 g/dL (6.4-8.2)
--- NOTE | 2019-04-16 11:21 | NUR ---
LOUISE BATRES AT BEDSIDE FOR PT UPDATE.
[2019-04-16] MEDS: ONDANSETRON IV *ER 4 MG/2 ML VIAL IV ONE (11:30)
[2019-04-16] MEDS ORDERED: HYDROMORPHONE 1 MG/1 ML DISP.SYRIN ONE (11:32)
--- NOTE | 2019-04-16 12:00 | NUR ---
Patient discharged to home in stable conditon. Written and verbal after care instructions given. Patient verbalizes understanding of instructions. ALL BELONGINGS W/ PT. PT SELF-AMBULATED W/O DIFFICULTY.
--- NOTE | 2019-04-16 12:00 | NUR ---
20G IV ACCESS IN LAC REMOVED PRIOR TO D/C - INNER CANNULA INTACT.
[2019-04-16 12:01] VITALS: BP 141/88
== END 2019-04-16 12:01 | disposition home or self-care (01) ==
LOC: ER 09:45
DX: J44.1 Chronic obstructive pulmonary disease with (acute) exacerbation (principal); K21.9 Gastro-esophageal reflux disease without esophagitis; F17.200 Nicotine dependence, unspecified, uncomplicated; Z88.0 Allergy status to penicillin; Z88.8 Allergy status to other drugs, medicaments and biological substances; Z91.040 Latex allergy status; Z91.013 Allergy to seafood; Z79.899 Other long term (current) drug therapy
CPT/HCPCS: 36415; 71045; 80048; 80076; 83880; 84484; 85025; 93005; 94640 ×2; 96374; 96375; 96376; 99284; J1170 ×2; J2405 ×2; J2930; 70030-TC; A4663; J3590; J7030

== ENCOUNTER 2019-04-22 11:51 | Inpatient (IN) | payer OTHER ==
[~2019-04-22] VITALS: Ht 157.5 cm; Wt 98.4 kg
--- NOTE | 2019-04-22 12:02 | NUR ---
at bedside to examine patient.
[2019-04-22] MEDS ORDERED: ALBUTEROL SULFATE 2.5 MG/3 ML NEBU NEB ONE (12:15)
[2019-04-22] MEDS ORDERED: ONDANSETRON IV *ER 4 MG/2 ML VIAL IV ONE (12:15)
[2019-04-22] MEDS ORDERED: IPRATROPIUM BROMIDE 0.5 MG/2.5 ML NEBU NEB ONE (12:15)
[2019-04-22] MEDS ORDERED: MAGNESIUM SULFATE 2 GM in IV DEXTROSE 5% 100 ML IV ONE (12:15)
[2019-04-22] MEDS ORDERED: MORPHINE SULFATE 4 MG/1 ML DISP.SYRIN IV ONE ×2 (12:15→13:45)
[2019-04-22] MEDS ORDERED: methylPREDNISolone SOD SUCC 125 MG/2 ML VIAL IV ONE (12:15)
[2019-04-22] MEDS ORDERED: ALBUTEROL SULFATE 2.5 MG/ 0.5 ML NEBU ONE (12:19)
[2019-04-22] MEDS ORDERED: IPRATROPIUM BROMIDE 0.5 MG/2.5 ML NEBU ONE (12:19)
[2019-04-22 12:41] LABS: BASOPHILS # (AUTO) 0.1 K/uL (0.0-8.0); EOSINOPHILS # (AUTO) 0.2 K/uL (0.0-0.7); EOSINOPHILS % (AUTO) 1.8 % (0.0-7.0); HEMATOCRIT 39.8 % (31.2-41.9); HEMOGLOBIN 12.7 g/dL (10.9-14.3); LYMPHOCYTES # (AUTO) 3.6 K/uL (20.0-40.0); LYMPHOCYTES % (AUTO) 28.7 % (20.5-51.5); MEAN CORPUSCULAR HEMOGLOBIN 26.8 uug (24.7-32.8); MEAN CORPUSCULAR HGB CONC 32 g/dL (32.3-35.6); MEAN CORPUSCULAR VOLUME 84.1 fL (75.5-95.3); MONOCYTES # (AUTO) 0.8 K/uL (2.0-10.0); MONOCYTES % (AUTO) 6.6 % (0.0-11.0); NEUTROPHILS # (AUTO) 7.7 K/uL (1.8-8.9); NEUTROPHILS % (AUTO) 61.9 % (38.5-71.5); PLATELET COUNT (AUTO) 264 K/uL (179-408); RED BLOOD CELL COUNT(AUTO) 4.73 MIL/uL (3.63-4.92); WHITE BLOOD COUNT (AUTO) 12.5 K/uL (3.8-11.8)
[2019-04-22] MEDS ORDERED: methylPREDNISolone SOD SUCC 125 MG/2 ML VIAL ONE (12:41)
[2019-04-22] MEDS ORDERED: MORPHINE SULFATE 4 MG/1 ML DISP.SYRIN ONE ×2 (12:41→13:48)
[2019-04-22] MEDS ORDERED: MAGNESIUM SULFATE/D5W 100 ML ONE ×2 (12:41→13:00)
[2019-04-22] MEDS ORDERED: ONDANSETRON 4 MG/2 ML VIAL ONE (12:41)
[2019-04-22 12:49] LABS: POTASSIUM 3.6 mmol/L (3.5-5.1)
[2019-04-22 13:04] LABS: BILIRUBIN,DIRECT 0.1 mg/dL (0.0-0.2); BILIRUBIN,TOTAL 0.2 mg/dL (0.2-1.0); TOTAL PROTEIN, SERUM 6.5 g/dL (6.4-8.2)
--- NOTE | 2019-04-22 13:17 | NUR ---
a call to [facility] for possible admission Dr. newman as informed by exchange.
[2019-04-22 13:24] LABS: ABG BASE EXCESS 1.3 mmol/L; ABG HCO3 25.6 mmol/L; ABG PCO2 39.7 mmHg (35.0-45.0); ABG PH 7.428 (7.350-7.450); ABG PO2 56.6 mmHg (75.0-100.0); ABG SITE RIGHT RADIAL; ABG TOTAL HEMOGLOBIN 13.2 G/dL (12.0-16.0); COHb 1.8 % (0.5-1.5); MetHb 0.3 % (0.0-1.5); O2Hb 87.3 % (94.0-97.0)
[2019-04-22] MEDS ORDERED: MAGNESIUM HYDROXIDE 30 ML LIQUID UDC PO PRN (13:30)
[2019-04-22] MEDS ORDERED: IPRATROPIUM BROMIDE 0.5 MG/2.5 ML NEBU NEB PRN (13:30)
[2019-04-22] MEDS ORDERED: ALBUTEROL SULFATE 2.5 MG/3 ML NEBU NEB PRN (13:30)
[2019-04-22] MEDS ORDERED: Z GUARD REMEDY PASTE 57 GM TUBE TOP PRN (13:30)
[2019-04-22] MEDS ORDERED: ACETAMINOPHEN 325 MG TABLET PO PRN (13:30)
[2019-04-22] MEDS ORDERED: methylPREDNISolone SOD SUCC 125 MG/2 ML VIAL IV SCH (13:30)
[2019-04-22] MEDS ORDERED: HYDROCODONE/APAP 5-325MG TABLET PO PRN (13:30)
[2019-04-22] MEDS ORDERED: ONDANSETRON 4 MG/2 ML VIAL IV PRN (13:30)
--- NOTE | 2019-04-22 13:30 | NUR ---
HR 95, sbp of 113/89, saturiton of 95% on 2Lnc. medicated for pain.
[2019-04-22] MEDS ORDERED: methylPREDNISolone ACETATE 40 MG VIAL ONE (13:40)
[2019-04-22] MEDS ORDERED: methylPREDNISolone SOD SUCC 40 MG/ML VIAL ONE (13:42)
[2019-04-22] MEDS ORDERED: HYDR4TAB4 PO (13:49)
[2019-04-22] MEDS ORDERED: HYDR-4354 PO (13:49)
--- NOTE | 2019-04-22 14:01 | NUR ---
Telephone report given to charge Tomas Arriaga. patient will be moisés to room 330. vitals stable pain well controlled pt. also seen by Admitting physician Dr. Oquendo
--- NOTE | 2019-04-22 14:05 | NUR ---
pt. will be going via bed. taken up by Tomas
[2019-04-22 14:36] VITALS: BP 132/74
--- NOTE | 2019-04-22 15:10 | NUR ---
PATIENT IS DECIDED TO GO AMA. SHE SAID THAT SHE FEELS VERY GOOD AND DOESN'T WANT TO HAVE TREATMENT AT THE HOSPITAL, SHE STATED THERE IS NOTHING TO DO WITH HOSPITAL, SHE JUST WANTS TO BE HOME AND SHE WILL BE TAKING HER MEDICATIONS HER PCP RECOMMENDED THIS MORNING. I PROVIDED TEACHING WITH CAUSES AND PROS BUT SHE STILL WANTED TO LEAVE. SHE SIGNED PAPERS AND WAS SUPERVISED DOWNSTAIRS VS WERE STABLE ON FIRST ASSESSMENT
[2019-04-22] MEDS ORDERED: methylPREDNISolone SOD SUCC 40 MG/ML VIAL IV SCH (18:00)
== END 2019-04-22 15:10 | disposition left against medical advice (07) | DRG 140 ==
LOC: ER 11:51 → TELE3 14:00
DX: J44.1 Chronic obstructive pulmonary disease with (acute) exacerbation (principal); F11.20 Opioid dependence, uncomplicated; G89.4 Chronic pain syndrome; R09.1 Pleurisy; K21.9 Gastro-esophageal reflux disease without esophagitis; L30.9 Dermatitis, unspecified; M79.7 Fibromyalgia; Z88.0 Allergy status to penicillin; Z91.040 Latex allergy status; I10 Essential (primary) hypertension; Z79.51 Long term (current) use of inhaled steroids; Z87.891 Personal history of nicotine dependence; Z79.899 Other long term (current) drug therapy; J98.11 Atelectasis; R06.03 Acute respiratory distress
CPT/HCPCS: 36415; 36600; 70030-TC; 71045; 85025; 93005; A4663; G0378; J1030; J2270; J2405; J2920; J2930; J3475; J3590

== ENCOUNTER 2019-05-05 21:28 | Emergency (ER) | payer OTHER ==
[~2019-05-05] VITALS: Ht 157.5 cm; Wt 102.1 kg
[~2019-05-05 21:28] MED LIST changes: +HYDR-4354 PO; +HYDR4TAB4 PO
--- NOTE | 2019-05-05 22:31 | NUR ---
Lying on gurney waiting for er md for eval family at bedside.
[2019-05-05] MEDS ORDERED: ONDANSETRON 4 MG/2 ML VIAL IM ONE (22:45)
[2019-05-05] MEDS ORDERED: ALBUTEROL SULFATE 2.5 MG/3 ML NEBU NEB ONE (22:45)
[2019-05-05] MEDS ORDERED: IPRATROPIUM BROMIDE 0.5 MG/2.5 ML NEBU NEB ONE (22:45)
[2019-05-05] MEDS ORDERED: HYDROMORPHONE 1 MG/1 ML DISP.SYRIN IM ONE (22:45)
[2019-05-05] MEDS ORDERED: IPRATROPIUM BROMIDE 0.5 MG/2.5 ML NEBU ONE (22:48)
[2019-05-05] MEDS ORDERED: ALBUTEROL SULFATE 2.5 MG/3 ML NEBU ONE (22:48)
[2019-05-05] MEDS ORDERED: ONDANSETRON 4 MG/2 ML VIAL ONE (23:05)
[2019-05-05] MEDS ORDERED: HYDROMORPHONE 2 MG/1 ML DISP.SYRIN ONE (23:05)
[2019-05-06] MEDS ORDERED: HYDROMORPHONE 1 MG/1 ML DISP.SYRIN IM ONE (00:30)
[2019-05-06] MEDS ORDERED: ONDANSETRON 4 MG/2 ML VIAL IM ONE (00:30)
[2019-05-06] MEDS ORDERED: ONDANSETRON 4 MG/2 ML VIAL ONE (00:54)
[2019-05-06] MEDS ORDERED: HYDROMORPHONE 2 MG/1 ML DISP.SYRIN ONE (00:54)
--- NOTE | 2019-05-06 01:07 | NUR ---
Patient discharged to home in stable conditon with daughter taking patient home. Written and verbal after care instructions given. Patient verbalizes understanding of instructions. Waked out of ER with no distress noted
[2019-05-06 01:10] VITALS: BP 128/75
== END 2019-05-06 01:11 | disposition home or self-care (01) ==
LOC: ER 21:31
DX: J44.1 Chronic obstructive pulmonary disease with (acute) exacerbation (principal); K21.9 Gastro-esophageal reflux disease without esophagitis; F17.200 Nicotine dependence, unspecified, uncomplicated; Z88.0 Allergy status to penicillin; Z88.8 Allergy status to other drugs, medicaments and biological substances; Z91.040 Latex allergy status; Z91.013 Allergy to seafood; Z79.899 Other long term (current) drug therapy
CPT/HCPCS: 94640; 96372 ×4; 99283; J1170 ×2; J2405 ×2; A4663; J3590

== ENCOUNTER 2019-05-13 22:34 | Emergency (ER) | payer OTHER ==
[~2019-05-13] VITALS: Ht 157.5 cm; Wt 102.1 kg
--- NOTE | 2019-05-13 22:45 | NUR ---
Pt walks into ER with multiple complaints. Pt states she has been coughing up yellow phlegm and has been having SOB for the past week. Respirations even + unlabored. No acute distress noted. Daughter at bedside.
[2019-05-13] MEDS ORDERED: MORPHINE SULFATE 2 MG/1 ML DISP.SYRIN IV ONE (23:30)
[2019-05-13] MEDS ORDERED: methylPREDNISolone SOD SUCC 125 MG/2 ML VIAL IV ONE (23:30)
[2019-05-13] MEDS ORDERED: ALBUTEROL SULFATE 2.5 MG/3 ML NEBU NEB ONE (23:30)
[2019-05-13] MEDS ORDERED: ONDANSETRON 4 MG/2 ML VIAL IV ONE (23:30)
[2019-05-13] MEDS ORDERED: IV NORMAL SALINE 1000 ML BAG IV ONE (23:30)
[2019-05-13] MEDS ORDERED: IPRATROPIUM BROMIDE 0.5 MG/2.5 ML NEBU NEB ONE (23:30)
[2019-05-13] MEDS ORDERED: MORPHINE SULFATE 4 MG/1 ML DISP.SYRIN ONE (23:38)
[2019-05-13] MEDS ORDERED: methylPREDNISolone SOD SUCC 125 MG/2 ML VIAL ONE (23:38)
[2019-05-13] MEDS ORDERED: ONDANSETRON 4 MG/2 ML VIAL ONE (23:38)
[2019-05-13] MEDS ORDERED: IPRATROPIUM BROMIDE 0.5 MG/2.5 ML NEBU ONE ×2 (23:44)
[2019-05-13] MEDS ORDERED: ALBUTEROL SULFATE 2.5 MG/3 ML NEBU ONE (23:44)
[2019-05-13 23:47] LABS: BASOPHILS # (AUTO) 0.1 K/uL (0.0-8.0); BASOPHILS % (AUTO) 0.7 % (0.0-2.0); EOSINOPHILS # (AUTO) 0.2 K/uL (0.0-0.7); EOSINOPHILS % (AUTO) 1.7 % (0.0-7.0); HEMATOCRIT 41.8 % (31.2-41.9); HEMOGLOBIN 13.3 g/dL (10.9-14.3); LYMPHOCYTES # (AUTO) 4.4 K/uL (20.0-40.0); LYMPHOCYTES % (AUTO) 30.7 % (20.5-51.5); MEAN CORPUSCULAR HEMOGLOBIN 25.9 uug (24.7-32.8); MEAN CORPUSCULAR HGB CONC 32 g/dL (32.3-35.6); MEAN CORPUSCULAR VOLUME 81.2 fL (75.5-95.3); MONOCYTES # (AUTO) 1.1 K/uL (2.0-10.0); MONOCYTES % (AUTO) 7.7 % (0.0-11.0); NEUTROPHILS # (AUTO) 8.5 K/uL (1.8-8.9); NEUTROPHILS % (AUTO) 59.2 % (38.5-71.5); PLATELET COUNT (AUTO) 289 K/uL (179-408); RED BLOOD CELL COUNT(AUTO) 5.14 MIL/uL (3.63-4.92); WHITE BLOOD COUNT (AUTO) 14.4 K/uL (3.8-11.8)
[2019-05-13 23:56] LABS: CARBON DIOXIDE 30 mmol/L (21-32); CHLORIDE 105 mmol/L (98-107); GLUCOSE 121 mg/dL (74-106); POTASSIUM 3.5 mmol/L (3.5-5.1); UREA NITROGEN, BLOOD 21 mg/dL (7-18)
[2019-05-14 00:02] LABS: ALANINE AMINOTRANSFERASE 36 U/L (14-59); ALKALINE PHOSPHATASE 81 U/L (50-136); ASPARTATE AMINOTRANSFERASE 16 U/L (15-37); BILIRUBIN,DIRECT < 0.1 mg/dL (0.0-0.2); BILIRUBIN,TOTAL 0.3 mg/dL (0.2-1.0); TOTAL PROTEIN, SERUM 6.9 g/dL (6.4-8.2)
[2019-05-14] MEDS ORDERED: HYDROMORPHONE 1 MG/1 ML DISP.SYRIN IV ONE (00:45)
[2019-05-14] MEDS ORDERED: HYDROMORPHONE 1 MG/1 ML DISP.SYRIN ONE (00:49)
--- NOTE | 2019-05-14 01:31 | NUR ---
IV removed. Catheter intact and site benign. Pressure and 4x4 gauze applied to site. No bleeding noted.
--- NOTE | 2019-05-14 01:32 | NUR ---
Patient discharged to home in stable conditon. Written and verbal after care instructions given. Patient verbalizes understanding of instructions. Pt walked out of ER in stable gait with daughter, who will take pt home. No acute distress noted. Vital signs stable. Respirations even + unlabored. Pt states she feels so much better.
[2019-05-14 01:33] VITALS: BP 127/66
== END 2019-05-14 01:34 | disposition home or self-care (01) ==
LOC: ER 22:37
DX: S23.29XA Dislocation of other parts of thorax, initial encounter (principal); J44.1 Chronic obstructive pulmonary disease with (acute) exacerbation; K21.9 Gastro-esophageal reflux disease without esophagitis; F17.200 Nicotine dependence, unspecified, uncomplicated; Z88.0 Allergy status to penicillin; Z88.8 Allergy status to other drugs, medicaments and biological substances; Z91.040 Latex allergy status; Z91.013 Allergy to seafood; Z79.899 Other long term (current) drug therapy; X58.XXXA Exposure to other specified factors, initial encounter; Y93.89 Activity, other specified; Y92.89 Other specified places as the place of occurrence of the external cause; Y99.8 Other external cause status
CPT/HCPCS: 36415; 71045; 80048; 80076; 84484; 85025; 94644; 96374; 96375 ×2; 99285; J1170; J2270; J2405; J2930; 70030-TC; A4663; J3590; J7030

== ENCOUNTER 2019-05-23 22:04 | Emergency (ER) | payer OTHER ==
[~2019-05-23] VITALS: Ht 157.5 cm; Wt 103.0 kg
[~2019-05-23 22:04] MED LIST changes: -HYDR4TAB4 PO; -NYST5ORA PO
--- NOTE | 2019-05-23 22:45 | NUR ---
PT RECEIVED WITH NOTICEABLE EFFORT WHEN BREATHING. STATES HSE IS HAVING ASTHMA ATTACK AND PAIN OF LEFT RIB. MONITORED O2 VIA PULSE OX PT ON HIGH SALAMANCA'S POSITION (POSITION OF COMFORT) RT AND MD NOTIFIED
--- NOTE | 2019-05-23 23:50 | NUR ---
RT AT BEDSIDE. STARTED OBN BREATHING TX
[2019-05-24] MEDS ORDERED: IV NORMAL SALINE 1000 ML BAG IV ONE
[2019-05-24] MEDS ORDERED: methylPREDNISolone SOD SUCC 125 MG/2 ML VIAL IV ONE
[2019-05-24] MEDS ORDERED: IPRATROPIUM BROMIDE 0.5 MG/2.5 ML NEBU NEB ONE
[2019-05-24] MEDS ORDERED: ONDANSETRON 4 MG/2 ML VIAL IV ONE
[2019-05-24] MEDS ORDERED: ALBUTEROL SULFATE 2.5 MG/3 ML NEBU NEB ONE
[2019-05-24 00:08] LABS: BASOPHILS # (AUTO) 0.1 K/uL (0.0-8.0); BASOPHILS % (AUTO) 0.5 % (0.0-2.0); EOSINOPHILS % (AUTO) 0.2 % (0.0-7.0); HEMATOCRIT 40.8 % (31.2-41.9); HEMOGLOBIN 13.3 g/dL (10.9-14.3); LYMPHOCYTES # (AUTO) 2.6 K/uL (20.0-40.0); LYMPHOCYTES % (AUTO) 16.7 % (20.5-51.5); MEAN CORPUSCULAR HGB CONC 33 g/dL (32.3-35.6); MEAN CORPUSCULAR VOLUME 79.8 fL (75.5-95.3); MONOCYTES # (AUTO) 0.7 K/uL (2.0-10.0); MONOCYTES % (AUTO) 4.3 % (0.0-11.0); NEUTROPHILS # (AUTO) 12.2 K/uL (1.8-8.9); NEUTROPHILS % (AUTO) 78.3 % (38.5-71.5); PLATELET COUNT (AUTO) 303 K/uL (179-408); RED BLOOD CELL COUNT(AUTO) 5.11 MIL/uL (3.63-4.92); WHITE BLOOD COUNT (AUTO) 15.6 K/uL (3.8-11.8)
[2019-05-24] MEDS ORDERED: methylPREDNISolone SOD SUCC 125 MG/2 ML VIAL ONE (00:12)
[2019-05-24] MEDS ORDERED: ONDANSETRON 4 MG/2 ML VIAL ONE (00:12)
[2019-05-24] MEDS ORDERED: HYDROMORPHONE 1 MG/1 ML DISP.SYRIN ONE ×2 (00:12→01:49)
[2019-05-24] MEDS ORDERED: ALBUTEROL SULFATE 2.5 MG/3 ML NEBU ONE (00:14)
[2019-05-24] MEDS ORDERED: IPRATROPIUM BROMIDE 0.5 MG/2.5 ML NEBU ONE (00:14)
[2019-05-24 00:29] LABS: ALANINE AMINOTRANSFERASE 29 U/L (14-59); ALKALINE PHOSPHATASE 80 U/L (50-136); ASPARTATE AMINOTRANSFERASE 15 U/L (15-37); BILIRUBIN,DIRECT < 0.1 mg/dL (0.0-0.2); BILIRUBIN,TOTAL 0.3 mg/dL (0.2-1.0); CARBON DIOXIDE 27 mmol/L (21-32); CHLORIDE 104 mmol/L (98-107); CREATININE 0.9 mg/dL (0.6-1.3); GLUCOSE 112 mg/dL (74-106); POTASSIUM 4.1 mmol/L (3.5-5.1); TOTAL PROTEIN, SERUM 6.7 g/dL (6.4-8.2); UREA NITROGEN, BLOOD 20 mg/dL (7-18)
[2019-05-24] MEDS ORDERED: CELLULOSE,OXIDIZED 2x3 MC ONE (01:43)
[2019-05-24] MEDS ORDERED: IOPAMIDOL 15 ML VIAL IT ONE (01:43)
[2019-05-24] MEDS ORDERED: IOHEXOL 350 100 ML INFUS..BTL ONE (01:43)
[2019-05-24] MEDS ORDERED: HYDROMORPHONE 1 MG/1 ML DISP.SYRIN IV ONE ×2 (01:45)
--- NOTE | 2019-05-24 01:56 | NUR ---
PT ACCOMPANIED BY BONDING MACHINE SETTER VIA [facility] FOR CT SCAN W/ CONTRAST. CONSENT OBTAINED
--- NOTE | 2019-05-24 02:50 | NUR ---
BACK FROM CT PT NAD, SIDERAILSX2 UP, BED AT LOWEST POSITION
[2019-05-24] MEDS ORDERED: MORPHINE SULFATE 4 MG/1 ML DISP.SYRIN IV ONE (03:45)
[2019-05-24] MEDS ORDERED: MORPHINE SULFATE 4 MG/1 ML DISP.SYRIN ONE (03:53)
[2019-05-24] MEDS ORDERED: MORPHINE SULFATE 2 MG/1 ML DISP.SYRIN ONE (03:54)
[2019-05-24 04:27] VITALS: BP 117/83
--- NOTE | 2019-05-24 04:43 | NUR ---
Patient discharged to home in stable conditon. Written and verbal after care instructions given. Patient verbalizes understanding of instructions. IVF D/C PRIOR TO DISCHARGE AMBULATORY WITH STABLE GAIT ALL BELONGINGS WITH PT
== END 2019-05-24 04:45 | disposition home or self-care (01) ==
LOC: ER 22:06
DX: J44.1 Chronic obstructive pulmonary disease with (acute) exacerbation (principal); G89.29 Other chronic pain; K21.9 Gastro-esophageal reflux disease without esophagitis; F17.200 Nicotine dependence, unspecified, uncomplicated; Z88.0 Allergy status to penicillin; Z88.8 Allergy status to other drugs, medicaments and biological substances; Z91.040 Latex allergy status; Z91.013 Allergy to seafood; Z79.899 Other long term (current) drug therapy
CPT/HCPCS: 36415; 71045; 71275; 80048; 80076; 83880; 84484; 85025; 85379; 93005; 94644; 96374; 96375; 96376; 99285; J1170 ×2; J2270 ×2; J2405; J2930; Q9967 ×2; 70030-TC; A4663; J3590; J7030

== ENCOUNTER 2019-06-03 18:47 | Emergency (ER) | payer OTHER ==
[~2019-06-03] VITALS: Ht 157.5 cm; Wt 103.0 kg
[2019-06-03] MEDS ORDERED: ONDANSETRON ODT 4 MG TAB.RAPDIS SL ONE (19:45)
[2019-06-03] MEDS ORDERED: IPRATROPIUM BROMIDE 0.5 MG/2.5 ML NEBU NEB ONE (19:45)
[2019-06-03] MEDS ORDERED: predniSONE 10 MG TABLET PO ONE (19:45)
[2019-06-03] MEDS ORDERED: ALBUTEROL SULFATE 2.5 MG/3 ML NEBU NEB ONE (19:45)
[2019-06-03] MEDS ORDERED: HYDROMORPHONE HCL 2 MG TABLET PO ONE ×2 (19:45→21:00)
[2019-06-03] MEDS ORDERED: IPRATROPIUM BROMIDE 0.5 MG/2.5 ML NEBU ONE (19:58)
[2019-06-03] MEDS ORDERED: ALBUTEROL SULFATE 2.5 MG/3 ML NEBU ONE (19:58)
[2019-06-03] MEDS ORDERED: HYDROMORPHONE HCL 2 MG TABLET ONE ×2 (20:01→20:57)
[2019-06-03] MEDS ORDERED: ONDANSETRON ODT 4 MG TAB.RAPDIS ONE (20:02)
[2019-06-03] MEDS ORDERED: predniSONE 20 MG TABLET ONE (20:02)
--- NOTE | 2019-06-03 21:36 | NUR ---
Patient discharged to home in stable conditon. Written and verbal after care instructions given. Patient verbalizes understanding of instructions. Patient ambualtory with steady gait. patient exit care package and personal belongings sent home with patient. patient has good understanding of medications and health. Patient denies any pain/discomfort prior to discharge.
[2019-06-03 21:40] VITALS: BP 131/79
== END 2019-06-03 21:30 | disposition home or self-care (01) ==
LOC: ER 18:51
DX: J44.9 Chronic obstructive pulmonary disease, unspecified (principal); R07.2 Precordial pain; R09.1 Pleurisy; M79.7 Fibromyalgia; F11.20 Opioid dependence, uncomplicated; G89.29 Other chronic pain; K21.9 Gastro-esophageal reflux disease without esophagitis; Z88.0 Allergy status to penicillin; Z88.8 Allergy status to other drugs, medicaments and biological substances; Z91.040 Latex allergy status; Z91.013 Allergy to seafood; Z79.899 Other long term (current) drug therapy
CPT/HCPCS: 71045; 93005; 94644; 99285; J7512; A4663; J3590; Q0162

== ENCOUNTER 2019-06-20 10:46 | Emergency (ER) | payer OTHER ==
[~2019-06-20] VITALS: Ht 157.5 cm; Wt 58.5 kg
[2019-06-20] MEDS ORDERED: IPRATROPIUM BROMIDE 0.5 MG/2.5 ML NEBU NEB ONE (11:30)
[2019-06-20] MEDS ORDERED: HYDROCODONE/APAP 10-325 MG TABLET PO ONE (11:30)
[2019-06-20] MEDS ORDERED: ALBUTEROL SULFATE 2.5 MG/3 ML NEBU NEB ONE (11:30)
[2019-06-20] MEDS ORDERED: predniSONE 20 MG TABLET PO ONE (11:30)
[2019-06-20] MEDS ORDERED: HYDROCODONE/APAP 10-325 MG TABLET ONE (11:48)
[2019-06-20] MEDS ORDERED: predniSONE 20 MG TABLET ONE (11:49)
[2019-06-20] MEDS ORDERED: ALBUTEROL SULFATE 2.5 MG/3 ML NEBU ONE (11:52)
[2019-06-20] MEDS ORDERED: IPRATROPIUM BROMIDE 0.5 MG/2.5 ML NEBU ONE (11:53)
[2019-06-20 12:03] LABS: BASOPHILS # (AUTO) 0.2 K/uL (0.0-8.0); BASOPHILS % (AUTO) 1.4 % (0.0-2.0); EOSINOPHILS # (AUTO) 0.1 K/uL (0.0-0.7); EOSINOPHILS % (AUTO) 0.9 % (0.0-7.0); HEMATOCRIT 40.5 % (31.2-41.9); HEMOGLOBIN 12.9 g/dL (10.9-14.3); LYMPHOCYTES % (AUTO) 27.1 % (20.5-51.5); MEAN CORPUSCULAR HEMOGLOBIN 26.3 uug (24.7-32.8); MEAN CORPUSCULAR HGB CONC 32 g/dL (32.3-35.6); MEAN CORPUSCULAR VOLUME 82.8 fL (75.5-95.3); MONOCYTES # (AUTO) 0.8 K/uL (2.0-10.0); MONOCYTES % (AUTO) 5.7 % (0.0-11.0); NEUTROPHILS # (AUTO) 9.4 K/uL (1.8-8.9); NEUTROPHILS % (AUTO) 64.9 % (38.5-71.5); PLATELET COUNT (AUTO) 252 K/uL (179-408); RED BLOOD CELL COUNT(AUTO) 4.89 MIL/uL (3.63-4.92); WHITE BLOOD COUNT (AUTO) 14.6 K/uL (3.8-11.8)
[2019-06-20 12:09] LABS: CREATININE 0.8 mg/dL (0.6-1.3); POTASSIUM 3.7 mmol/L (3.5-5.1)
[2019-06-20 12:21] LABS: BILIRUBIN,DIRECT 0.1 mg/dL (0.0-0.2); BILIRUBIN,TOTAL 0.3 mg/dL (0.2-1.0); TOTAL PROTEIN, SERUM 6.5 g/dL (6.4-8.2)
--- NOTE | 2019-06-20 12:53 | NUR ---
Pt remains awake,alert.Seen,reexamined by .No c/o pain.No s/s of respiratory distress.Pt states feeling better after pain medication,breathing Tx.Discharge instruction given to pt.Verbalized understanding.
[2019-06-20 13:03] VITALS: BP 112/80
== END 2019-06-20 13:06 | disposition home or self-care (01) ==
LOC: ER 10:46
DX: J45.901 Unspecified asthma with (acute) exacerbation (principal); J44.9 Chronic obstructive pulmonary disease, unspecified; J18.9 Pneumonia, unspecified organism; G89.29 Other chronic pain; K21.9 Gastro-esophageal reflux disease without esophagitis; F17.200 Nicotine dependence, unspecified, uncomplicated; Z88.0 Allergy status to penicillin; Z88.8 Allergy status to other drugs, medicaments and biological substances; Z91.040 Latex allergy status; Z91.013 Allergy to seafood; Z79.899 Other long term (current) drug therapy
CPT/HCPCS: 36415; 71045; 71250; 80048; 80076; 83880; 84484; 85025; 93005; 94644; 99285; J7512; 70030-TC; A4663; J3590

== ENCOUNTER 2019-06-30 22:12 | Emergency (ER) | payer OTHER ==
[~2019-06-30] VITALS: Ht 157.5 cm; Wt 102.1 kg
[2019-06-30] MEDS: IPRATROPIUM BROMIDE 0.5 MG/2.5 ML NEBU NEB ONE (23:15)
[2019-06-30] MEDS: ALBUTEROL SULFATE 2.5 MG/3 ML NEBU NEB ONE (23:15)
[2019-06-30] MEDS ORDERED: ALBUTEROL SULFATE 2.5 MG/3 ML NEBU ONE (23:20)
[2019-06-30] MEDS ORDERED: IPRATROPIUM BROMIDE 0.5 MG/2.5 ML NEBU ONE (23:21)
[2019-06-30 23:28] LABS: BASOPHILS # (AUTO) 0.1 K/uL (0.0-8.0); BASOPHILS % (AUTO) 0.5 % (0.0-2.0); EOSINOPHILS # (AUTO) 0.2 K/uL (0.0-0.7); EOSINOPHILS % (AUTO) 1.5 % (0.0-7.0); HEMATOCRIT 41.6 % (31.2-41.9); HEMOGLOBIN 13.2 g/dL (10.9-14.3); LYMPHOCYTES # (AUTO) 6.1 K/uL (20.0-40.0); LYMPHOCYTES % (AUTO) 39.4 % (20.5-51.5); MEAN CORPUSCULAR HEMOGLOBIN 25.7 uug (24.7-32.8); MEAN CORPUSCULAR HGB CONC 32 g/dL (32.3-35.6); MEAN CORPUSCULAR VOLUME 81.2 fL (75.5-95.3); MONOCYTES # (AUTO) 1.1 K/uL (2.0-10.0); MONOCYTES % (AUTO) 6.9 % (0.0-11.0); NEUTROPHILS % (AUTO) 51.7 % (38.5-71.5); PLATELET COUNT (AUTO) 294 K/uL (179-408); RED BLOOD CELL COUNT(AUTO) 5.12 MIL/uL (3.63-4.92); WHITE BLOOD COUNT (AUTO) 15.6 K/uL (3.8-11.8)
[2019-06-30] MEDS: methylPREDNISolone SOD SUCC 125 MG/2 ML VIAL IV ONE (23:29)
[2019-06-30] MEDS: MORPHINE SULFATE 4 MG/1 ML DISP.SYRIN IV ONE (23:30)
[2019-06-30] MEDS ORDERED: MORPHINE SULFATE 4 MG/1 ML DISP.SYRIN ONE (23:33)
[2019-06-30] MEDS ORDERED: methylPREDNISolone SOD SUCC 125 MG/2 ML VIAL ONE (23:33)
[2019-06-30 23:35] LABS: POTASSIUM 3.4 mmol/L (3.5-5.1)
[2019-06-30] MEDS ORDERED: ONDANSETRON 4 MG/2 ML VIAL ONE (23:36)
[2019-06-30 23:44] LABS: ALANINE AMINOTRANSFERASE 35 U/L (14-59); ALKALINE PHOSPHATASE 76 U/L (50-136); ASPARTATE AMINOTRANSFERASE 20 U/L (15-37); BILIRUBIN,DIRECT < 0.1 mg/dL (0.0-0.2); BILIRUBIN,TOTAL < 0.1 mg/dL (0.2-1.0); TOTAL PROTEIN, SERUM 6.4 g/dL (6.4-8.2)
[2019-06-30] MEDS: ONDANSETRON 4 MG/2 ML VIAL IV ONE (23:54)
[2019-07-01] MEDS: IPRATROPIUM BROMIDE 0.5 MG/2.5 ML NEBU NEB ONE (01:20)
[2019-07-01] MEDS: ALBUTEROL SULFATE 2.5 MG/3 ML NEBU NEB ONE (01:20)
[2019-07-01] MEDS ORDERED: IPRATROPIUM BROMIDE 0.5 MG/2.5 ML NEBU ONE (01:21)
[2019-07-01] MEDS ORDERED: ALBUTEROL SULFATE 2.5 MG/3 ML NEBU ONE (01:21)
[2019-07-01] MEDS: MORPHINE SULFATE 4 MG/1 ML DISP.SYRIN IV ONE (01:37)
[2019-07-01] MEDS ORDERED: MORPHINE SULFATE 4 MG/1 ML DISP.SYRIN ONE (01:41)
--- NOTE | 2019-07-01 02:00 | NUR ---
Patient in room interacting with daughter with no distress noted.
[2019-07-01] MEDS: LEVOFLOXACIN 750 MG TABLET PO ONE (02:53)
[2019-07-01] MEDS: DOXYCYCLINE HYCLATE 100 MG TABLET PO ONE (02:55)
--- NOTE | 2019-07-01 02:55 | NUR ---
IV removed. Catheter intact and site benign. Pressure and 4x4 gauze applied to site. No bleeding noted.
[2019-07-01] MEDS ORDERED: DOXYCYCLINE HYCLATE 100 MG TABLET ONE (02:58)
--- NOTE | 2019-07-01 03:04 | NUR ---
Patient does not wish to proceed with medical care recommended by (Cierra ). Patient given information related to possible complications, up to and including , which could occur as a result of leaving the hospital at this time. Patient verbalizes understanding of risks involved due to leaving against medical advice. Patient has signed AMA form.
[2019-07-01 03:06] VITALS: BP 122/82
== END 2019-07-01 03:08 | disposition left against medical advice (07) ==
LOC: ER 22:12
DX: J44.1 Chronic obstructive pulmonary disease with (acute) exacerbation (principal); J18.1 Lobar pneumonia, unspecified organism; K21.9 Gastro-esophageal reflux disease without esophagitis; F17.200 Nicotine dependence, unspecified, uncomplicated; Z88.0 Allergy status to penicillin; Z88.8 Allergy status to other drugs, medicaments and biological substances; Z91.013 Allergy to seafood; Z91.040 Latex allergy status; Z79.899 Other long term (current) drug therapy
CPT/HCPCS: 36415; 71045; 80048; 80076; 83880; 84484; 85025; 93005; 94640 ×2; 96374; 96375; 96376; 99284; J2270 ×2; J2405; J2930; 70030-TC; A4663; J3590

== ENCOUNTER 2019-07-10 18:30 | Emergency (ER) | payer OTHER ==
[~2019-07-10] VITALS: Ht 157.5 cm; Wt 99.8 kg
--- NOTE | 2019-07-10 19:04 | NUR ---
Pt's o2 sat on room air is 91%, placed pt on 2l via nasal cannula, o2 sat increased to 94%.
--- NOTE | 2019-07-10 19:12 | NUR ---
DR. AUSTIN AT BEDSIDE FOR MSE.
[2019-07-10] MEDS ORDERED: ALBUTEROL SULFATE 2.5 MG/3 ML NEBU NEB ONE (19:30)
[2019-07-10] MEDS ORDERED: methylPREDNISolone SOD SUCC 125 MG/2 ML VIAL IV ONE (19:30)
[2019-07-10] MEDS ORDERED: IPRATROPIUM BROMIDE 0.5 MG/2.5 ML NEBU NEB ONE (19:30)
[2019-07-10] MEDS ORDERED: IPRATROPIUM BROMIDE 0.5 MG/2.5 ML NEBU ONE (19:31)
[2019-07-10] MEDS ORDERED: ALBUTEROL SULFATE 2.5 MG/3 ML NEBU ONE (19:31)
[2019-07-10] MEDS ORDERED: MORPHINE SULFATE 2 MG/1 ML DISP.SYRIN IV ONE ×3 (19:45→22:15)
[2019-07-10] MEDS ORDERED: ONDANSETRON 4 MG/2 ML VIAL IV ONE (19:45)
[2019-07-10 19:48] LABS: BASOPHILS # (AUTO) 0.1 K/uL (0.0-8.0); BASOPHILS % (AUTO) 0.7 % (0.0-2.0); EOSINOPHILS # (AUTO) 0.2 K/uL (0.0-0.7); EOSINOPHILS % (AUTO) 1.2 % (0.0-7.0); HEMATOCRIT 39.4 % (31.2-41.9); HEMOGLOBIN 12.6 g/dL (10.9-14.3); LYMPHOCYTES # (AUTO) 5.3 K/uL (20.0-40.0); LYMPHOCYTES % (AUTO) 34.5 % (20.5-51.5); MEAN CORPUSCULAR HEMOGLOBIN 25.6 uug (24.7-32.8); MEAN CORPUSCULAR HGB CONC 32 g/dL (32.3-35.6); MEAN CORPUSCULAR VOLUME 80.5 fL (75.5-95.3); MONOCYTES # (AUTO) 1.1 K/uL (2.0-10.0); NEUTROPHILS # (AUTO) 8.8 K/uL (1.8-8.9); NEUTROPHILS % (AUTO) 56.6 % (38.5-71.5); PLATELET COUNT (AUTO) 266 K/uL (179-408); WHITE BLOOD COUNT (AUTO) 15.5 K/uL (3.8-11.8)
[2019-07-10 19:50] LABS: CREATININE 0.9 mg/dL (0.6-1.3); POTASSIUM 3.7 mmol/L (3.5-5.1)
[2019-07-10] MEDS ORDERED: ONDANSETRON 4 MG/2 ML VIAL ONE (19:51)
[2019-07-10] MEDS ORDERED: methylPREDNISolone SOD SUCC 125 MG/2 ML VIAL ONE (19:51)
[2019-07-10] MEDS ORDERED: MORPHINE SULFATE 2 MG/1 ML DISP.SYRIN ONE ×3 (19:52→22:32)
[2019-07-10 19:56] LABS: BILIRUBIN,DIRECT 0.1 mg/dL (0.0-0.2); BILIRUBIN,TOTAL 0.2 mg/dL (0.2-1.0); TOTAL PROTEIN, SERUM 6.1 g/dL (6.4-8.2)
--- NOTE | 2019-07-10 22:49 | NUR ---
Patient discharged to home in stable conditon. Written and verbal after care instructions given. Patient verbalizes understanding of instructions. PATIENT LEFT WITH STABKLE GAIT, IV DC'D CATHETER INTACT
[2019-07-10 22:50] VITALS: BP 124/71
== END 2019-07-10 22:51 | disposition home or self-care (01) ==
LOC: ER 18:31
DX: S29.011A Strain of muscle and tendon of front wall of thorax, initial encounter (principal); J40 Bronchitis, not specified as acute or chronic; M75.32 Calcific tendinitis of left shoulder; I80.3 Phlebitis and thrombophlebitis of lower extremities, unspecified; J44.9 Chronic obstructive pulmonary disease, unspecified; K21.9 Gastro-esophageal reflux disease without esophagitis; Z88.0 Allergy status to penicillin; Z88.8 Allergy status to other drugs, medicaments and biological substances; Z91.040 Latex allergy status; Z91.013 Allergy to seafood; Z87.891 Personal history of nicotine dependence; Z79.899 Other long term (current) drug therapy; X58.XXXA Exposure to other specified factors, initial encounter; Y93.89 Activity, other specified; Y92.89 Other specified places as the place of occurrence of the external cause; Y99.8 Other external cause status
CPT/HCPCS: 36415; 71045; 73030; 80048; 80076; 83605; 83880; 84484; 85025; 87040 ×2; 93005; 93971; 94644; 96374; 96375; 96376; 99285; J2270 ×3; J2405; J2930; 70030-TC; A4663; J3590

== ENCOUNTER 2019-07-13 21:40 | Emergency (ER) | payer OTHER ==
[~2019-07-13] VITALS: Ht 157.5 cm; Wt 99.8 kg
[2019-07-13] MEDS ORDERED: ONDANSETRON 4 MG/2 ML VIAL IM ONE (22:45)
[2019-07-13] MEDS ORDERED: IPRATROPIUM BROMIDE 0.5 MG/2.5 ML NEBU NEB ONE ×2 (22:45→23:15)
[2019-07-13] MEDS ORDERED: ALBUTEROL SULFATE 2.5 MG/3 ML NEBU NEB ONE ×2 (22:45→23:15)
[2019-07-13] MEDS ORDERED: HYDROMORPHONE 1 MG/1 ML DISP.SYRIN IM ONE (22:45)
[2019-07-13] MEDS ORDERED: ALBUTEROL SULFATE 2.5 MG/3 ML NEBU ONE ×2 (22:51→23:11)
[2019-07-13] MEDS ORDERED: IPRATROPIUM BROMIDE 0.5 MG/2.5 ML NEBU ONE ×2 (22:52→23:12)
[2019-07-13] MEDS ORDERED: HYDROMORPHONE 2 MG/1 ML DISP.SYRIN ONE (22:53)
[2019-07-13] MEDS ORDERED: ONDANSETRON 4 MG/2 ML VIAL ONE (22:53)
[2019-07-14] MEDS ORDERED: HYDROMORPHONE 1 MG/1 ML DISP.SYRIN IM ONE
[2019-07-14] MEDS ORDERED: ONDANSETRON 4 MG/2 ML VIAL IM ONE
[2019-07-14] MEDS ORDERED: HYDROMORPHONE 2 MG/1 ML DISP.SYRIN ONE (00:21)
[2019-07-14] MEDS ORDERED: ONDANSETRON 4 MG/2 ML VIAL ONE (00:21)
--- NOTE | 2019-07-14 00:26 | NUR ---
PATIENT WAS ACCOMPANIED BY HER DAUGHTER REQUESTED AND RECEIVED ANOTHER DOSE OF PAINMEDICATION WANTED TO GO HOME WITH HER DAUGHTER DRIVING HER UNABLE TO REASSESS
[2019-07-14 00:33] VITALS: BP 122/70
== END 2019-07-14 00:30 | disposition home or self-care (01) ==
LOC: ER 21:40
DX: J44.1 Chronic obstructive pulmonary disease with (acute) exacerbation (principal); R60.9 Edema, unspecified; K21.9 Gastro-esophageal reflux disease without esophagitis; F17.200 Nicotine dependence, unspecified, uncomplicated; Z88.0 Allergy status to penicillin; Z88.8 Allergy status to other drugs, medicaments and biological substances; Z91.040 Latex allergy status; Z91.013 Allergy to seafood; Z79.899 Other long term (current) drug therapy
CPT/HCPCS: 71045; 93971; 94640 ×2; 96372 ×4; 99284; J1170 ×2; J2405 ×2; A4663; J3590

== ENCOUNTER 2019-07-20 21:34 | Emergency (ER) | payer OTHER ==
[~2019-07-20] VITALS: Ht 157.5 cm; Wt 100.7 kg
[2019-07-20] MEDS ORDERED: ALBUTEROL SULFATE 2.5 MG/3 ML NEBU NEB ONE (22:00)
[2019-07-20] MEDS ORDERED: IPRATROPIUM BROMIDE 0.5 MG/2.5 ML NEBU NEB ONE (22:00)
[2019-07-20] MEDS ORDERED: OXYCODONE/APAP 5-325 MG TABLET PO ONE (22:00)
--- NOTE | 2019-07-20 22:05 | NUR ---
+WHEEZING ON BOTH LUNG MAN +PAIN 9/10 UPON COUHGING AND INSPIRATION ABLE TO TOLERATE PO MEDS ORDERED FOR PAIN ASSEMBLY MACHINE FEEDER AT BEDSIDE BREATHING TREATMENT STARTED BY RT
[2019-07-20] MEDS ORDERED: ALBUTEROL SULFATE 2.5 MG/3 ML NEBU ONE (22:08)
[2019-07-20] MEDS ORDERED: IPRATROPIUM BROMIDE 0.5 MG/2.5 ML NEBU ONE (22:08)
[2019-07-20] MEDS ORDERED: OXYCODONE/APAP 5-325 MG TABLET ONE (22:13)
--- NOTE | 2019-07-20 23:04 | NUR ---
PAIN DECREASED TO 8/10 B/L RIB WHEN COUGHING ABLE TO TOLERATE BREATHING TREATMENT, SPO2 AT 97% BUT SPO2 WENT BACK TO 90% BROUGHT BACK TO O2 VIA NC @ 3LPM, SPO2 BACK TO 97% TEMP DOWN TO 97.8F SKIN IS PINK MOIST, +CAP REFILL LESSER WHEEZING FROM BOTH LUNG MAN
[2019-07-20] MEDS ORDERED: ONDANSETRON ODT 4 MG TAB.RAPDIS SL ONE (23:15)
[2019-07-20] MEDS ORDERED: MORPHINE SULFATE 4 MG/1 ML DISP.SYRIN IM ONE (23:15)
[2019-07-20] MEDS ORDERED: ONDANSETRON ODT 4 MG TAB.RAPDIS ONE (23:19)
[2019-07-20] MEDS ORDERED: MORPHINE SULFATE 4 MG/1 ML DISP.SYRIN ONE (23:19)
[2019-07-20] MEDS ORDERED: MORPHINE SULFATE 2 MG/1 ML DISP.SYRIN ONE (23:20)
--- NOTE | 2019-07-20 23:45 | NUR ---
PT ABLE TO AMBULATE W/ STABLE GAIT SPO2 AT 93% PAIN DECREASED TO 97% MONITORED ACCORDINGLY
[2019-07-20 23:56] VITALS: BP 130/70
--- NOTE | 2019-07-20 23:56 | NUR ---
Patient discharged to home in stable conditon. Written and verbal after care instructions given. Patient verbalizes understanding of instructions. AMBULATORY W/ STABLE GAIT ALL BELONGINGS W/ PT INSTRUCTED NOT TO DRIVE. PT VERBALIZED UNDERSTANDING
== END 2019-07-20 23:57 | disposition home or self-care (01) ==
LOC: ER 21:36
DX: S29.011A Strain of muscle and tendon of front wall of thorax, initial encounter (principal); J44.1 Chronic obstructive pulmonary disease with (acute) exacerbation; F17.200 Nicotine dependence, unspecified, uncomplicated; Z88.0 Allergy status to penicillin; Z88.8 Allergy status to other drugs, medicaments and biological substances; Z91.040 Latex allergy status; Z91.013 Allergy to seafood; Z79.899 Other long term (current) drug therapy; X58.XXXA Exposure to other specified factors, initial encounter; Y93.89 Activity, other specified; Y92.89 Other specified places as the place of occurrence of the external cause; Y99.8 Other external cause status
CPT/HCPCS: 71101; 93005; 94644; 96372; 99285; J2270 ×2; A4663; J3590; Q0162

== ENCOUNTER 2019-07-29 20:36 | Inpatient (IN) | payer OTHER ==
[~2019-07-29] VITALS: Ht 157.5 cm; Wt 106.1 kg
--- NOTE | 2019-07-29 21:11 | NUR ---
RT called to bedside per ER MD instruction.
[2019-07-29] MEDS ORDERED: MORPHINE SULFATE 2 MG/1 ML DISP.SYRIN IV ONE (21:15)
[2019-07-29] MEDS ORDERED: AZITHROMYCIN 250 MG TABLET PO ONE (21:15)
[2019-07-29] MEDS ORDERED: IPRATROPIUM BROMIDE 0.5 MG/2.5 ML NEBU NEB ONE ×3 (21:15→21:45)
[2019-07-29] MEDS ORDERED: ALBUTEROL SULFATE 2.5 MG/3 ML NEBU NEB ONE ×3 (21:15→21:45)
[2019-07-29] MEDS ORDERED: methylPREDNISolone SOD SUCC 125 MG/2 ML VIAL IV ONE (21:15)
[2019-07-29] MEDS ORDERED: CEFTRIAXONE 1 G in IV DEXTROSE 5% 50 ML IV ONE (21:15)
[2019-07-29] MEDS ORDERED: MORPHINE SULFATE 4 MG/1 ML DISP.SYRIN ONE (21:20)
[2019-07-29] MEDS ORDERED: CEFTRIAXONE 1 G VIAL ONE (21:29)
[2019-07-29 21:32] LABS: BASOPHILS # (AUTO) 0.1 K/uL (0.0-8.0); BASOPHILS % (AUTO) 0.6 % (0.0-2.0); EOSINOPHILS # (AUTO) 0.3 K/uL (0.0-0.7); EOSINOPHILS % (AUTO) 1.9 % (0.0-7.0); HEMATOCRIT 39.8 % (31.2-41.9); HEMOGLOBIN 12.7 g/dL (10.9-14.3); LYMPHOCYTES # (AUTO) 5.5 K/uL (20.0-40.0); LYMPHOCYTES % (AUTO) 39.8 % (20.5-51.5); MEAN CORPUSCULAR HEMOGLOBIN 25.7 uug (24.7-32.8); MEAN CORPUSCULAR HGB CONC 32 g/dL (32.3-35.6); MEAN CORPUSCULAR VOLUME 80.5 fL (75.5-95.3); MONOCYTES # (AUTO) 0.8 K/uL (2.0-10.0); MONOCYTES % (AUTO) 5.9 % (0.0-11.0); NEUTROPHILS # (AUTO) 7.2 K/uL (1.8-8.9); NEUTROPHILS % (AUTO) 51.8 % (38.5-71.5); PLATELET COUNT (AUTO) 290 K/uL (179-408); RED BLOOD CELL COUNT(AUTO) 4.94 MIL/uL (3.63-4.92); WHITE BLOOD COUNT (AUTO) 13.8 K/uL (3.8-11.8)
--- NOTE | 2019-07-29 21:33 | NUR ---
Patient in bed, no acute distress noted. VSS
[2019-07-29 21:38] LABS: CREATININE 0.9 mg/dL (0.6-1.3); POTASSIUM 3.4 mmol/L (3.5-5.1)
[2019-07-29 21:51] LABS: BILIRUBIN,DIRECT 0.1 mg/dL (0.0-0.2); BILIRUBIN,TOTAL 0.2 mg/dL (0.2-1.0); TOTAL PROTEIN, SERUM 6.2 g/dL (6.4-8.2)
[2019-07-29] MEDS ORDERED: SWABABLE VALVE TRANSFER SET EA MC ONE (22:08)
[2019-07-29] MEDS ORDERED: IOHEXOL 350 100 ML INFUS..BTL ONE (22:08)
[2019-07-29] MEDS ORDERED: IV NORMAL SALINE 250 ML IV ONE (22:08)
[2019-07-29] MEDS ORDERED: GABA-534 PO (22:11)
[2019-07-29] MEDS ORDERED: HYDROMORPHONE 1 MG/1 ML DISP.SYRIN IV ONE ×2 (22:15→23:45)
--- NOTE | 2019-07-29 22:37 | NUR ---
Patient taken to CT at this time. VSS
--- NOTE | 2019-07-29 22:46 | NUR ---
Patient back from CT at this time. No acute distress noted. VSS
--- NOTE | 2019-07-29 23:49 | NUR ---
Report to Anushka DARLING on Telemetry. Pt. admitted to tele , under care of Dr. Ayon. Belongs List completed
[2019-07-30 00:12] VITALS: BP 119/67
--- NOTE | 2019-07-30 00:41 | NUR ---
Received patient from ER. A/Ox4. No signs of acute distress noted. Complains of rib pain when coughing. Vitals WNL. Heplock on the left AC is intact and patent. Belongings and list with patient. Patient is SR on TELE monitor. Patient is ambulatory with a steady gait. Skin assessment done, patient has no skin issues. Safety measures initiated. Bed is low and locked, call light within reach. Will continue with the admission process.
[2019-07-30] MEDS ORDERED: ZOLPIDEM 5 MG TABLET PO PRN (01:15)
[2019-07-30] MEDS ORDERED: HYDROCODONE/APAP 5-325MG TABLET PO PRN (01:15)
[2019-07-30] MEDS ORDERED: ACETAMINOPHEN 325 MG TABLET PO PRN (01:15)
[2019-07-30] MEDS: ALBUTEROL SULFATE 2.5 MG/3 ML NEBU NEB PRN ×3 (01:18→10:22)
[2019-07-30] MEDS: IPRATROPIUM BROMIDE 0.5 MG/2.5 ML NEBU NEB PRN ×3 (01:18→10:22)
[2019-07-30] MEDS ORDERED: LEVOFLOXACIN 500 MG/D5W 100 ML ONE (01:32)
[2019-07-30] MEDS: MORPHINE SULFATE 2 MG/1 ML DISP.SYRIN IV PRN ×6 (01:48→22:07)
[2019-07-30] MEDS ORDERED: LEVOFLOXACIN 500 MG/D5W 500 MG in PREMIXED 1 EACH IV SCH (02:00)
[2019-07-30] MEDS: ONDANSETRON 4 MG/2 ML VIAL IV PRN ×2 (06:00→21:16)
[2019-07-30] MEDS: PANTOPRAZOLE SODIUM 40 MG TABLET.DR PO SCH (06:00)
--- NOTE | 2019-07-30 06:52 | NUR ---
Patient slept intermittently. Pain and breathing treatment given as needed. Patient complained of nausea with PRN Zofran given and was effective. Safety measures given. Will endorse to next shift.
[2019-07-30 07:46] LABS: BASOPHILS % (AUTO) 0.2 % (0.0-2.0); HEMATOCRIT 41.3 % (31.2-41.9); HEMOGLOBIN 12.9 g/dL (10.9-14.3); LYMPHOCYTES # (AUTO) 0.8 K/uL (20.0-40.0); LYMPHOCYTES % (AUTO) 7.5 % (20.5-51.5); MEAN CORPUSCULAR HEMOGLOBIN 25.9 uug (24.7-32.8); MEAN CORPUSCULAR HGB CONC 31 g/dL (32.3-35.6); MEAN CORPUSCULAR VOLUME 83.2 fL (75.5-95.3); MONOCYTES # (AUTO) 0.1 K/uL (2.0-10.0); MONOCYTES % (AUTO) 1.3 % (0.0-11.0); PLATELET COUNT (AUTO) 278 K/uL (179-408); RED BLOOD CELL COUNT(AUTO) 4.96 MIL/uL (3.63-4.92)
[2019-07-30 07:51] LABS: BILIRUBIN,TOTAL 0.2 mg/dL (0.2-1.0); POTASSIUM 4.7 mmol/L (3.5-5.1); TOTAL PROTEIN, SERUM 6.7 g/dL (6.4-8.2)
--- NOTE | 2019-07-30 08:00 | NUR ---
AWAKE ALERT AND ORIENTED X3 RESTING WELL NO SS OF DISTRESS. CONTINUE WITH PAIN MANAGEMENT. 100% ON RA
[2019-07-30 08:05] LABS: THYROID STIMULATING HORMONE 0.414 mIU/mL (0.358-3.740)
[2019-07-30] MEDS ORDERED: Medication Not On Formulary EA (Escitalopram Oxalate (Lexapro) 20 MG) PO SCH (09:00)
[2019-07-30] MEDS: MONTELUKAST SODIUM 10 MG TABLET PO SCH (10:15)
[2019-07-30 11:01] VITALS: BP 117/49
[2019-07-30] MEDS: methylPREDNISolone SOD SUCC 40 MG/ML VIAL IV SCH ×3 (11:01→21:08)
[2019-07-30] MEDS: FLUTICASONE/VILANTEROL 1 EACH BLST.W.DEV INH SCH (11:59)
[2019-07-30] MEDS: DOXYCYCLINE HYCLATE 100 MG TABLET PO SCH (12:00)
[2019-07-30] MEDS: ESCITALOPRAM OXALATE 10 MG TABLET PO SCH (12:00)
--- NOTE | 2019-07-30 12:00 | NUR ---
SEEN BY HOSPITALIST WITH ORDERS. SEE NOTES
[2019-07-30] MEDS: LIDOCAINE 5% PATCH TD SCH (13:59)
[2019-07-30] MEDS: ENOXAPARIN SODIUM 40 MG/0.4 ML DISP.SYRIN SQ SCH (14:00)
[2019-07-30] MEDS: IPRATROPIUM BROMIDE 0.5 MG/2.5 ML NEBU NEB SCH ×3 (14:11→23:59)
[2019-07-30] MEDS: ALBUTEROL SULFATE 2.5 MG/3 ML NEBU NEB SCH ×3 (14:11→23:59)
[2019-07-30 15:10] VITALS: BP 110/62
--- NOTE | 2019-07-30 17:46 | NUR ---
NO ACUTE CHANGE, REMAINS ST 100-106 ON MONITOR.
--- NOTE | 2019-07-30 19:41 | NUR ---
Received patient awake and alert in bed receiving breathing treatment and tolerating well. No complaints of SOB, complains of some pain with pain medication already given and stated that it is effective. Heplock on the left AC is intact and patent. Patient is SR on the TELE monitor at 95 bpm. Safety measures initiated. Bed is low and locked, call light within reach. Will continue to monitor.
[2019-07-30 20:09] VITALS: BP 140/82
[2019-07-30] MEDS ORDERED: GABAPENTIN 300 MG CAPSULE PO SCH (21:00)
[2019-07-31] VITALS: BP 132/74
[2019-07-31] MEDS: MORPHINE SULFATE 2 MG/1 ML DISP.SYRIN IV PRN ×3 (02:13→10:44)
[2019-07-31 04:00] VITALS: BP 117/68
--- NOTE | 2019-07-31 05:46 | NUR ---
No acute changes. Patient slept intermittently. Breathing treatment given. Patient complained of pain with PRN pain medication given and was effective. Medications given as ordered and tolerated well. Will endorse to next shift
[2019-07-31] MEDS: methylPREDNISolone SOD SUCC 40 MG/ML VIAL IV SCH ×2 (06:10→14:18)
[2019-07-31] MEDS: PANTOPRAZOLE SODIUM 40 MG TABLET.DR PO SCH (06:11)
[2019-07-31 06:32] LABS: BASOPHILS % (AUTO) 0.1 % (0.0-2.0); HEMATOCRIT 40.1 % (31.2-41.9); HEMOGLOBIN 12.6 g/dL (10.9-14.3); MEAN CORPUSCULAR HEMOGLOBIN 25.6 uug (24.7-32.8); MEAN CORPUSCULAR HGB CONC 32 g/dL (32.3-35.6); MEAN CORPUSCULAR VOLUME 81.2 fL (75.5-95.3); MONOCYTES # (AUTO) 0.7 K/uL (2.0-10.0); MONOCYTES % (AUTO) 3.4 % (0.0-11.0); NEUTROPHILS % (AUTO) 91.5 % (38.5-71.5); PLATELET COUNT (AUTO) 312 K/uL (179-408); RED BLOOD CELL COUNT(AUTO) 4.94 MIL/uL (3.63-4.92); WHITE BLOOD COUNT (AUTO) 20.7 K/uL (3.8-11.8)
[2019-07-31 06:49] LABS: CREATININE 0.9 mg/dL (0.6-1.3); POTASSIUM 4.3 mmol/L (3.5-5.1)
[2019-07-31] MEDS: ALBUTEROL SULFATE 2.5 MG/3 ML NEBU NEB SCH ×2 (07:44→13:36)
[2019-07-31] MEDS: IPRATROPIUM BROMIDE 0.5 MG/2.5 ML NEBU NEB SCH ×2 (07:44→13:36)
--- NOTE | 2019-07-31 08:00 | NUR ---
AWAKE ALERT AND ORIENTED X3 NO SS OF PAIN OR DISTRESS. CONTINUE WITH RESPIRATORY AND PAIN MANAGEMENT.
[2019-07-31] MEDS: MONTELUKAST SODIUM 10 MG TABLET PO SCH (08:31)
[2019-07-31] MEDS: FLUTICASONE/VILANTEROL 1 EACH BLST.W.DEV INH SCH (08:31)
[2019-07-31] MEDS: DOXYCYCLINE HYCLATE 100 MG TABLET PO SCH (08:31)
[2019-07-31] MEDS: ESCITALOPRAM OXALATE 10 MG TABLET PO SCH (08:31)
[2019-07-31] MEDS: LIDOCAINE 5% PATCH TD SCH (08:31)
[2019-07-31] MEDS: ENOXAPARIN SODIUM 40 MG/0.4 ML DISP.SYRIN SQ SCH (10:49)
[2019-07-31 11:33] VITALS: BP 135/87
[2019-07-31] MEDS ORDERED: DOXY100T2 PO (11:59)
[2019-07-31] MEDS ORDERED: PRED20TA PO (11:59)
[2019-07-31] MEDS ORDERED: OXYC-128 PO (11:59)
--- NOTE | 2019-07-31 12:00 | NUR ---
SEEN BY LOG FEEDER HOSPITALIST WITH DC ORDER. SEE NOTES
[2019-07-31] MEDS: ONDANSETRON 4 MG/2 ML VIAL IV PRN (12:22)
--- NOTE | 2019-07-31 14:00 | NUR ---
discharged home stable with RX and follow-up instruction with pcp accompanied by family
== END 2019-07-31 14:00 | disposition home or self-care (01) | DRG 145 ==
LOC: ER 20:38 → TELE3 23:28
PROVIDERS: ADMIT Internal Medicine; ATTEND Nurse Practitioner Acute Care
DX: J20.9 Acute bronchitis, unspecified (principal); J44.0 Chronic obstructive pulmonary disease with (acute) lower respiratory infection; J45.901 Unspecified asthma with (acute) exacerbation; K76.0 Fatty (change of) liver, not elsewhere classified; J44.1 Chronic obstructive pulmonary disease with (acute) exacerbation; Z68.41 Body mass index [BMI] 40.0-44.9, adult; M94.0 Chondrocostal junction syndrome [Tietze]; R94.31 Abnormal electrocardiogram [ECG] [EKG]; G43.909 Migraine, unspecified, not intractable, without status migrainosus; M79.7 Fibromyalgia; F32.9 Major depressive disorder, single episode, unspecified; F41.9 Anxiety disorder, unspecified; Z79.899 Other long term (current) drug therapy; E87.6 Hypokalemia; E66.9 Obesity, unspecified; Z87.11 Personal history of peptic ulcer disease; D72.829 Elevated white blood cell count, unspecified; T38.0X5A Adverse effect of glucocorticoids and synthetic analogues, initial encounter; Y92.89 Other specified places as the place of occurrence of the external cause; Z79.51 Long term (current) use of inhaled steroids; J98.11 Atelectasis; Z87.891 Personal history of nicotine dependence
CPT/HCPCS: 36415; 70030-TC; 71045; 71275; 83735; 84100; 84443; 85025; 93005; 94640; A4663; G0378; J0696; J1170; J1650; J1956; J2270; J2405; J2920; J2930; J3590; J7050; J7060; Q0144; Q9967

== ENCOUNTER 2019-10-05 21:33 | Emergency (ER) | payer OTHER ==
[~2019-10-05] VITALS: Ht 157.5 cm; Wt 100.7 kg
[~2019-10-05 21:33] MED LIST changes: -CETI-102 PO; +CETI-110 PO; +DOXY100T2 PO; +GABA-534 PO; -HYDR-4354 PO; -LORA0.5T PO; +OXYC-128 PO
[2019-10-05] MEDS ORDERED: methylPREDNISolone SOD SUCC 125 MG/2 ML VIAL IV ONE (22:15)
[2019-10-05] MEDS ORDERED: ALBUTEROL SULFATE 2.5 MG/3 ML NEBU NEB ONE (22:15)
[2019-10-05] MEDS ORDERED: IPRATROPIUM BROMIDE 0.5 MG/2.5 ML NEBU NEB ONE (22:15)
[2019-10-05] MEDS ORDERED: IPRATROPIUM BROMIDE 0.5 MG/2.5 ML NEBU ONE (22:17)
[2019-10-05] MEDS ORDERED: ALBUTEROL SULFATE 2.5 MG/ 0.5 ML NEBU ONE (22:18)
[2019-10-05] MEDS ORDERED: methylPREDNISolone SOD SUCC 125 MG/2 ML VIAL ONE (22:20)
[2019-10-05 22:29] LABS: BASOPHILS # (AUTO) 0.1 K/uL (0.0-8.0); BASOPHILS % (AUTO) 0.7 % (0.0-2.0); EOSINOPHILS # (AUTO) 0.5 K/uL (0.0-0.7); EOSINOPHILS % (AUTO) 3.7 % (0.0-7.0); HEMATOCRIT 40.8 % (31.2-41.9); HEMOGLOBIN 12.9 g/dL (10.9-14.3); LYMPHOCYTES # (AUTO) 4.6 K/uL (20.0-40.0); LYMPHOCYTES % (AUTO) 33.2 % (20.5-51.5); MEAN CORPUSCULAR HEMOGLOBIN 25.8 uug (24.7-32.8); MEAN CORPUSCULAR HGB CONC 32 g/dL (32.3-35.6); MEAN CORPUSCULAR VOLUME 81.8 fL (75.5-95.3); MONOCYTES # (AUTO) 0.8 K/uL (2.0-10.0); NEUTROPHILS # (AUTO) 7.8 K/uL (1.8-8.9); NEUTROPHILS % (AUTO) 56.4 % (38.5-71.5); PLATELET COUNT (AUTO) 255 K/uL (179-408); RED BLOOD CELL COUNT(AUTO) 4.99 MIL/uL (3.63-4.92); WHITE BLOOD COUNT (AUTO) 13.8 K/uL (3.8-11.8)
[2019-10-05] MEDS ORDERED: MORPHINE SULFATE 4 MG/1 ML DISP.SYRIN IV ONE ×2 (22:30→23:45)
[2019-10-05 22:39] LABS: POTASSIUM 3.4 mmol/L (3.5-5.1)
[2019-10-05] MEDS ORDERED: MORPHINE SULFATE 4 MG/1 ML DISP.SYRIN ONE ×2 (22:41→23:39)
[2019-10-05 22:54] LABS: BILIRUBIN,DIRECT 0.1 mg/dL (0.0-0.2); BILIRUBIN,TOTAL 0.2 mg/dL (0.2-1.0); TOTAL PROTEIN, SERUM 6.6 g/dL (6.4-8.2)
[2019-10-05] MEDS ORDERED: ONDANSETRON 4 MG/2 ML VIAL ONE (23:39)
[2019-10-05] MEDS ORDERED: ONDANSETRON 4 MG/2 ML VIAL IV ONE (23:45)
--- NOTE | 2019-10-06 00:40 | NUR ---
IV removed. Catheter intact and site benign. Pressure and 4x4 gauze applied to site. No bleeding noted. Patient discharged to home in stable conditon. Written and verbal after care instructions given. Patient verbalizes understanding of instructions. Patient ambulating with steady gait. daughter at bedside to drive patient home
[2019-10-06 00:46] VITALS: BP 123/65
[2019-11-03] MEDS ORDERED: OXYC-132 PO (21:58)
== END 2019-10-06 00:40 | disposition home or self-care (01) ==
LOC: ER 21:33
DX: J44.1 Chronic obstructive pulmonary disease with (acute) exacerbation (principal); F17.200 Nicotine dependence, unspecified, uncomplicated; Z88.0 Allergy status to penicillin; Z88.8 Allergy status to other drugs, medicaments and biological substances; Z91.040 Latex allergy status; Z91.013 Allergy to seafood; Z79.899 Other long term (current) drug therapy
CPT/HCPCS: 36415; 71045; 80048; 80076; 83880; 84484; 85025; 93005; 94640; 96374; 96375; 99284; J2270 ×2; J2405; J2930; 70030-TC; A4663; J3590

== ENCOUNTER 2019-11-03 21:19 | Emergency (ER) | payer OTHER ==
[~2019-11-03] VITALS: Ht 157.5 cm; Wt 100.7 kg
[2019-11-03] MEDS ORDERED: ALBUTEROL SULFATE 2.5 MG/3 ML NEBU NEB ONE ×2 (22:15→23:30)
[2019-11-03] MEDS ORDERED: methylPREDNISolone SOD SUCC 125 MG/2 ML VIAL IV ONE (22:15)
[2019-11-03] MEDS ORDERED: IPRATROPIUM BROMIDE 0.5 MG/2.5 ML NEBU NEB ONE ×2 (22:15→23:30)
[2019-11-03] MEDS ORDERED: methylPREDNISolone SOD SUCC 125 MG/2 ML VIAL ONE (22:17)
[2019-11-03 22:23] LABS: BASOPHILS # (AUTO) 0.2 K/uL (0.0-8.0); BASOPHILS % (AUTO) 0.9 % (0.0-2.0); EOSINOPHILS # (AUTO) 0.2 K/uL (0.0-0.7); EOSINOPHILS % (AUTO) 1.2 % (0.0-7.0); HEMATOCRIT 42.3 % (31.2-41.9); HEMOGLOBIN 13.6 g/dL (10.9-14.3); LYMPHOCYTES # (AUTO) 6.3 K/uL (20.0-40.0); LYMPHOCYTES % (AUTO) 30.7 % (20.5-51.5); MEAN CORPUSCULAR HEMOGLOBIN 25.7 uug (24.7-32.8); MEAN CORPUSCULAR HGB CONC 32 g/dL (32.3-35.6); MEAN CORPUSCULAR VOLUME 80.2 fL (75.5-95.3); MONOCYTES # (AUTO) 1.5 K/uL (2.0-10.0); MONOCYTES % (AUTO) 7.5 % (0.0-11.0); NEUTROPHILS # (AUTO) 12.2 K/uL (1.8-8.9); NEUTROPHILS % (AUTO) 59.7 % (38.5-71.5); PLATELET COUNT (AUTO) 279 K/uL (179-408); RED BLOOD CELL COUNT(AUTO) 5.28 MIL/uL (3.63-4.92); WHITE BLOOD COUNT (AUTO) 20.4 K/uL (3.8-11.8)
[2019-11-03] MEDS ORDERED: IPRATROPIUM BROMIDE 0.5 MG/2.5 ML NEBU ONE ×2 (22:27→23:27)
[2019-11-03] MEDS ORDERED: ALBUTEROL SULFATE 2.5 MG/3 ML NEBU ONE ×2 (22:27→23:27)
[2019-11-03 22:32] LABS: CARBON DIOXIDE 30 mmol/L (21-32); CHLORIDE 104 mmol/L (98-107); CREATININE 0.9 mg/dL (0.6-1.3); GLUCOSE 100 mg/dL (74-106); POTASSIUM 3.7 mmol/L (3.5-5.1); UREA NITROGEN, BLOOD 19 mg/dL (7-18)
[2019-11-03 22:45] LABS: ALANINE AMINOTRANSFERASE 33 U/L (14-59); ALKALINE PHOSPHATASE 91 U/L (50-136); ASPARTATE AMINOTRANSFERASE 18 U/L (15-37); BILIRUBIN,DIRECT < 0.1 mg/dL (0.0-0.2); BILIRUBIN,TOTAL 0.2 mg/dL (0.2-1.0); TOTAL PROTEIN, SERUM 6.8 g/dL (6.4-8.2)
[2019-11-03] MEDS ORDERED: MORPHINE SULFATE 4 MG/1 ML DISP.SYRIN ONE (23:22)
[2019-11-03] MEDS ORDERED: MORPHINE SULFATE 4 MG/1 ML DISP.SYRIN IV ONE (23:30)
[2019-11-03] MEDS ORDERED: ONDANSETRON 4 MG/2 ML VIAL IV ONE (23:30)
[2019-11-03] MEDS ORDERED: ONDANSETRON 4 MG/2 ML VIAL ONE (23:35)
[2019-11-04] MEDS ORDERED: IV NORMAL SALINE 250 ML IV ONE (00:55)
[2019-11-04] MEDS ORDERED: SWABABLE VALVE TRANSFER SET EA MC ONE (00:55)
[2019-11-04] MEDS ORDERED: IOHEXOL 300MG/ML 100 ML INFUS..BTL ONE (00:55)
[2019-11-04] MEDS ORDERED: MORPHINE SULFATE 4 MG/1 ML DISP.SYRIN ONE (00:59)
[2019-11-04] MEDS ORDERED: MORPHINE SULFATE 4 MG/1 ML DISP.SYRIN IV ONE (01:00)
--- NOTE | 2019-11-04 01:06 | NUR ---
PT PICKED UP BY DREDGE MECHANIC FOR CT ANGIO (CHEST) VIA WHEELCHAIR RA WITH G20 L AC SALINE LOCK
--- NOTE | 2019-11-04 02:07 | NUR ---
SAMANTHA FOLLOWED UP
--- NOTE | 2019-11-04 02:45 | NUR ---
Patient discharged to home in stable conditon. Written and verbal after care instructions given. Patient verbalizes understanding of instructions. AMBULATORY W/ STABLE GAIT ALL BELONGINGS W/ PT IV DC, DRESSED
[2019-11-04 03:08] VITALS: BP 113/83
== END 2019-11-04 03:08 | disposition home or self-care (01) ==
LOC: ER 21:23
DX: J45.901 Unspecified asthma with (acute) exacerbation (principal); F17.200 Nicotine dependence, unspecified, uncomplicated; G43.909 Migraine, unspecified, not intractable, without status migrainosus; Z79.899 Other long term (current) drug therapy; Z88.0 Allergy status to penicillin; Z88.8 Allergy status to other drugs, medicaments and biological substances
CPT/HCPCS: 36415; 71045; 71275; 80048; 80076; 83880; 84484; 85025; 85379; 93005; 94640 ×2; 96374; 96375; 96376; 99285; J2270 ×2; J2405; J2930; Q9967; 70030-TC; A4663; J3590; J7050

== ENCOUNTER 2019-12-03 21:06 | Emergency (ER) | payer OTHER ==
--- NOTE | 2019-12-03 22:03 | NUR ---
Left without being triaged.
== END 2019-12-03 22:03 | disposition left against medical advice (07) ==
LOC: ER 21:08
DX: Z53.21 Procedure and treatment not carried out due to patient leaving prior to being seen by health care provider (principal)

== ENCOUNTER 2020-03-28 13:34 | Emergency (ER) | payer OTHER ==
[~2020-03-28] VITALS: Ht 157.5 cm; Wt 102.1 kg
[~2020-03-28 13:34] MED LIST changes: -DOXY100T2 PO; -OXYC-128 PO; +OXYC-132 PO
[2020-03-28] MEDS ORDERED: FAMO40TA7 PO (13:54)
[2020-03-28] MEDS ORDERED: ALBUTEROL SULFATE 2.5 MG/3 ML NEBU NEB ONE (14:30)
[2020-03-28] MEDS ORDERED: IPRATROPIUM BROMIDE 0.5 MG/2.5 ML NEBU NEB ONE (14:30)
[2020-03-28] MEDS ORDERED: predniSONE 10 MG TABLET PO ONE (14:30)
[2020-03-28] MEDS ORDERED: predniSONE 20 MG TABLET ONE (14:32)
--- NOTE | 2020-03-28 14:44 | NUR ---
PT DECIDED TO REFUSE TX AND SIGNED OUT AMA. PT DID RECEIVE 60MG PO OF PREDNISONE, DID NOT RECEIVE THE X-RAY AND RESP TX. PT AMBULATED W.O DIFF/TOOK ALL BELONGINGS.
[2020-03-28 14:47] VITALS: BP 118/84
== END 2020-03-28 14:40 | disposition left against medical advice (07) ==
LOC: ER 13:38
DX: J45.901 Unspecified asthma with (acute) exacerbation (principal); J44.9 Chronic obstructive pulmonary disease, unspecified; G89.29 Other chronic pain; M79.7 Fibromyalgia; Z91.040 Latex allergy status; Z91.013 Allergy to seafood; Z88.0 Allergy status to penicillin; Z71.89 Other specified counseling
CPT/HCPCS: 99283; J7512; A4663

== ENCOUNTER 2020-04-04 20:43 | Emergency (ER) | payer OTHER ==
[~2020-04-04] VITALS: Ht 157.5 cm; Wt 102.1 kg
[~2020-04-04 20:43] MED LIST changes: -CETI-110 PO; +CETI-90 PO; +FAMO40TA7 PO; -RANI-655 PO
--- NOTE | 2020-04-04 21:02 | NUR ---
Pt is in Room #2B. Dr. Zapien is at bedside for MSE.
[2020-04-04] MEDS ORDERED: HYDROMORPHONE 1 MG/1 ML DISP.SYRIN IV ONE ×2 (21:15→22:15)
[2020-04-04] MEDS ORDERED: ALBUTEROL SULFATE 2.5 MG/3 ML NEBU NEB ONE (21:15)
[2020-04-04] MEDS ORDERED: IPRATROPIUM BROMIDE 0.5 MG/2.5 ML NEBU NEB ONE (21:15)
[2020-04-04] MEDS ORDERED: IV NORMAL SALINE 1000 ML BAG IV ONE (21:15)
[2020-04-04] MEDS ORDERED: ONDANSETRON 4 MG/2 ML VIAL IV ONE ×2 (21:15→22:15)
[2020-04-04] MEDS ORDERED: methylPREDNISolone SOD SUCC 125 MG/2 ML VIAL IV ONE (21:15)
--- NOTE | 2020-04-04 21:17 | NUR ---
Pt was taken down to Radiology, for Xray via wheelchair.
[2020-04-04] MEDS ORDERED: IPRATROPIUM BROMIDE 0.5 MG/2.5 ML NEBU ONE (21:20)
[2020-04-04] MEDS ORDERED: ALBUTEROL SULFATE 2.5 MG/3 ML NEBU ONE (21:20)
--- NOTE | 2020-04-04 21:20 | NUR ---
urine collected and sent to lab
[2020-04-04 21:24] LABS: BASOPHILS # (AUTO) 0.1 K/uL (0.0-8.0); BASOPHILS % (AUTO) 0.9 % (0.0-2.0); EOSINOPHILS # (AUTO) 0.3 K/uL (0.0-0.7); HEMATOCRIT 43.7 % (31.2-41.9); HEMOGLOBIN 13.8 g/dL (10.9-14.3); LYMPHOCYTES # (AUTO) 5.6 K/uL (20.0-40.0); LYMPHOCYTES % (AUTO) 35.6 % (20.5-51.5); MEAN CORPUSCULAR HEMOGLOBIN 26.4 uug (24.7-32.8); MEAN CORPUSCULAR HGB CONC 32 g/dL (32.3-35.6); MEAN CORPUSCULAR VOLUME 83.7 fL (75.5-95.3); MONOCYTES # (AUTO) 1.1 K/uL (2.0-10.0); MONOCYTES % (AUTO) 6.6 % (0.0-11.0); NEUTROPHILS # (AUTO) 8.7 K/uL (1.8-8.9); NEUTROPHILS % (AUTO) 54.9 % (38.5-71.5); PLATELET COUNT (AUTO) 272 K/uL (179-408); RED BLOOD CELL COUNT(AUTO) 5.22 MIL/uL (3.63-4.92); WHITE BLOOD COUNT (AUTO) 15.9 K/uL (3.8-11.8)
[2020-04-04 21:29] LABS: POTASSIUM 3.4 mmol/L (3.5-5.1)
--- NOTE | 2020-04-04 21:30 | NUR ---
Pt back from Xray.
[2020-04-04 21:31] LABS: *BILIRUBIN,URIN NEGATIVE (NEGATIVE); *CLARITY,URINE SLIGHTLY CLOUDY (CLEAR); *COLOR,URINE YELLOW (YELLOW); *KETONES,URINE NEGATIVE (NEGATIVE); *UROBILINOGEN,URINE 0.2 E.U./dl (NORMAL); LEUKOCYTE ESTERASE ,URINE TRACE (NEGATIVE); NITRITE, URINE NEGATIVE (NEGATIVE); PH,URINE 5.5 (5.0-8.0); UGLUCOSE NEGATIVE (NEGATIVE)
[2020-04-04 21:32] LABS: *BLOOD, URINE TRACE (NEGATIVE)
--- NOTE | 2020-04-04 21:34 | NUR ---
covid swab collected and sent to lab at this time
[2020-04-04 21:36] LABS: BILIRUBIN,DIRECT 0.1 mg/dL (0.0-0.2); BILIRUBIN,TOTAL 0.3 mg/dL (0.2-1.0); TOTAL PROTEIN, SERUM 6.6 g/dL (6.4-8.2)
[2020-04-04] MEDS ORDERED: ONDANSETRON 4 MG/2 ML VIAL ONE ×2 (21:38→22:17)
[2020-04-04] MEDS ORDERED: HYDROMORPHONE 2 MG/1 ML DISP.SYRIN ONE ×2 (21:38→22:17)
[2020-04-04] MEDS ORDERED: methylPREDNISolone SOD SUCC 125 MG/2 ML VIAL ONE (21:39)
[2020-04-04 21:50] LABS: SQUAMOUS EPITHELIAL CELL,UR FEW /HPF (NONE SEEN)
[2020-04-04] MEDS ORDERED: AZITHROMYCIN 500MG/ D5W 250ML IVPB **ER PYXIS ONLY IV ONE (21:58)
[2020-04-04] MEDS ORDERED: AZITHROMYCIN IV 500 MG in IV DEXTROSE 5% 250 ML IV ONE (22:00)
--- NOTE | 2020-04-04 22:34 | NUR ---
Pt verbalized feeling better, waiting for ATB IV to finish.
[2020-04-04 22:45] VITALS: BP 114/52
--- NOTE | 2020-04-04 22:57 | NUR ---
MD cleared patient for DC. Written and verbal after care instructions given. Instructed not to drive because patient had narcotics. Patient verbalizes understanding of instructions. Stressed follow up or return to ER for worsening s/s. Pt ambulated out of ER in steady gait.
[2020-05-06] MEDS ORDERED: METF-440 PO (15:36)
[2020-05-06] MEDS ORDERED: ATOR20TA PO (15:36)
[2020-05-06] MEDS ORDERED: LEVO500T2 PO (15:36)
[2020-05-06] MEDS ORDERED: OXYC-128 PO (15:36)
== END 2020-04-04 22:57 | disposition home or self-care (01) ==
LOC: ER 20:43
DX: J45.901 Unspecified asthma with (acute) exacerbation (principal); J44.9 Chronic obstructive pulmonary disease, unspecified; D72.829 Elevated white blood cell count, unspecified; M79.7 Fibromyalgia; Z88.0 Allergy status to penicillin; Z91.013 Allergy to seafood; Z87.891 Personal history of nicotine dependence
CPT/HCPCS: 36415; 71045; 80048; 80076; 81001; 83690; 84484; 85025; 85730; 93005; 94640; 94664; 96365; 96375; 96376; 99285; J0456; J1170 ×2; J2405 ×2; J2930; U0003; 70030-TC; J3590

== ENCOUNTER 2020-05-03 21:44 | Inpatient (IN) | payer OTHER ==
[~2020-05-03] VITALS: Ht 157.5 cm; Wt 99.8 kg
[~2020-05-03 21:44] MED LIST changes: +CETI-110 PO; -CETI-90 PO; -OXYC-132 PO
--- NOTE | 2020-05-03 22:18 | NUR ---
Dr. Wheatley at bedside for MSE
[2020-05-03] MEDS ORDERED: HYDROCODONE/APAP 5-325MG TABLET PO ONE (22:45)
[2020-05-03] MEDS ORDERED: ALBUTEROL SULFATE 2.5 MG/3 ML NEBU NEB ONE (22:45)
[2020-05-03] MEDS ORDERED: ONDANSETRON 4 MG/2 ML VIAL IV ONE (22:45)
[2020-05-03] MEDS ORDERED: IV NORMAL SALINE 1000 ML BAG IV ONE (22:45)
[2020-05-03] MEDS ORDERED: ALBUTEROL SULFATE 2.5 MG/3 ML NEBU ONE (22:55)
[2020-05-03] MEDS ORDERED: ONDANSETRON 4 MG/2 ML VIAL ONE (23:21)
[2020-05-03 23:26] LABS: BASOPHILS # (AUTO) 0.1 K/uL (0.0-8.0); BASOPHILS % (AUTO) 1.1 % (0.0-2.0); EOSINOPHILS # (AUTO) 0.3 K/uL (0.0-0.7); EOSINOPHILS % (AUTO) 2.2 % (0.0-7.0); HEMATOCRIT 46.9 % (31.2-41.9); HEMOGLOBIN 15.1 g/dL (10.9-14.3); LYMPHOCYTES # (AUTO) 3.5 K/uL (20.0-40.0); LYMPHOCYTES % (AUTO) 27.4 % (20.5-51.5); MEAN CORPUSCULAR HEMOGLOBIN 26.6 uug (24.7-32.8); MEAN CORPUSCULAR HGB CONC 32 g/dL (32.3-35.6); MEAN CORPUSCULAR VOLUME 82.6 fL (75.5-95.3); MONOCYTES # (AUTO) 0.8 K/uL (2.0-10.0); MONOCYTES % (AUTO) 6.2 % (0.0-11.0); NEUTROPHILS # (AUTO) 8.1 K/uL (1.8-8.9); NEUTROPHILS % (AUTO) 63.1 % (38.5-71.5); PLATELET COUNT (AUTO) 248 K/uL (179-408); RED BLOOD CELL COUNT(AUTO) 5.67 MIL/uL (3.63-4.92); WHITE BLOOD COUNT (AUTO) 12.9 K/uL (3.8-11.8)
[2020-05-03 23:31] LABS: CREATININE 1.1 mg/dL (0.6-1.3)
[2020-05-03 23:48] LABS: BILIRUBIN,TOTAL 0.4 mg/dL (0.2-1.0); TOTAL PROTEIN, SERUM 6.7 g/dL (6.4-8.2)
[2020-05-03] MEDS ORDERED: MORPHINE SULFATE 4 MG/1 ML DISP.SYRIN ONE (23:58)
[2020-05-04] MEDS ORDERED: IOHEXOL 350 100 ML INFUS..BTL ONE (00:11)
[2020-05-04] MEDS ORDERED: SWABABLE VALVE TRANSFER SET EA MC ONE (00:11)
[2020-05-04] MEDS ORDERED: IV NORMAL SALINE 250 ML IV ONE (00:11)
[2020-05-04] MEDS ORDERED: IV NORMAL SALINE 1000 ML BAG IV ONE (00:15)
--- NOTE | 2020-05-04 00:20 | NUR ---
pt out of er for CT
--- NOTE | 2020-05-04 00:34 | NUR ---
pt back from CT
[2020-05-04] MEDS ORDERED: ALBUTEROL SULFATE 2.5 MG/3 ML NEBU NEB ONE (00:45)
[2020-05-04] MEDS ORDERED: ALBUTEROL SULFATE 2.5 MG/3 ML NEBU ONE (00:45)
[2020-05-04] MEDS ORDERED: ONDANSETRON 4 MG/2 ML VIAL IV ONE (01:00)
[2020-05-04] MEDS ORDERED: ONDANSETRON 4 MG/2 ML VIAL ONE (01:04)
[2020-05-04] MEDS ORDERED: MORPHINE SULFATE 4 MG/1 ML DISP.SYRIN ONE ×2 (01:39→06:09)
[2020-05-04] MEDS ORDERED: levoFLOXacin 750MG/D5W 150 ML IV ONE (01:40)
[2020-05-04] MEDS ORDERED: MORPHINE SULFATE 4 MG/1 ML DISP.SYRIN IV ONE ×2 (01:45)
[2020-05-04] MEDS ORDERED: levoFLOXacin 750 MG/D5W 150 ML PIGGYBACK IV ONE (01:45)
--- NOTE | 2020-05-04 02:15 | NUR ---
Dr. Wheatley on Panel call with JAYY Acuna
[2020-05-04 02:29] LABS: *BILIRUBIN,URIN NEGATIVE (NEGATIVE); *BLOOD, URINE NEGATIVE (NEGATIVE); *CLARITY,URINE CLEAR (CLEAR); *COLOR,URINE YELLOW (YELLOW); *KETONES,URINE NEGATIVE (NEGATIVE); *UROBILINOGEN,URINE 0.2 E.U./dl (NORMAL); LEUKOCYTE ESTERASE ,URINE NEGATIVE (NEGATIVE); NITRITE, URINE NEGATIVE (NEGATIVE); UGLUCOSE NEGATIVE (NEGATIVE)
[2020-05-04] MEDS ORDERED: ONDANSETRON 4 MG/2 ML VIAL IV PRN (02:30)
[2020-05-04] MEDS ORDERED: ALBUTEROL SULFATE 8 GM HFA.AER.AD IH PRN (02:30)
[2020-05-04] MEDS ORDERED: ACETAMINOPHEN 325 MG TABLET PO PRN (02:30)
[2020-05-04] MEDS ORDERED: IV NS 1000 ML 1,000 ML IV PRN (02:30)
[2020-05-04] MEDS ORDERED: HYDROCODONE/APAP 5-325MG TABLET PO PRN (02:45)
[2020-05-04] MEDS ORDERED: DEXAMETHASONE SOD PHOSPHATE 10 MG INJ ONE (02:56)
--- NOTE | 2020-05-04 04:46 | NUR ---
pt in bed, asleep. easily arousable no signs of distress respirations even and unlabored isolation precaution observed safety precaution in place. bed locked, lowest position. instructed pt to call nurse for assistance will continue to monitor
[2020-05-04] MEDS: MORPHINE SULFATE 4 MG/1 ML DISP.SYRIN IV PRN ×4 (06:22→20:01)
--- NOTE | 2020-05-04 07:03 | NUR ---
Report given to PHONG Oshea
--- NOTE | 2020-05-04 07:16 | NUR ---
PATIENT IS RESTING COMFORTABLE WITH NO COMPLAINTS. AWAITING FOR PENDING ADMISSION
--- NOTE | 2020-05-04 08:04 | NUR ---
REPORT GIVEN TO FLOOR RN...SHE IS AWARE OF PUI SITUATION (COVID).
--- NOTE | 2020-05-04 08:15 | NUR ---
Patient brought up on gurulm from ER, she does not seem to experiencing any respiratory distress at this time. She is on 3 L of oxygen and has a history of asthma. Auscultation shows some tightness at this time but no shortness of breath. IV in the left AC 20 gauge and is intact and patent. Patient is a PUI and so isolation precautions are in place. Patient has a Covid 19 PCR test pending. Safety precautions in place, bed in lowest position, and locked with alarm activated. Patient call light and personal belongings are within reach. Will continue to monitor and observe.
[2020-05-04 08:40] VITALS: BP 108/67
[2020-05-04] MEDS ORDERED: DEXAMETHASONE SOD PHOSPHATE 4 MG INJ IV SCH (09:00)
--- NOTE | 2020-05-04 11:10 | NUR ---
Patient seen by Dr Gonzales
[2020-05-04 11:32] VITALS: BP 132/68
[2020-05-04] MEDS: IPRATROPIUM/ALBUTEROL SULFATE 14.7 GM INHALER INH SCH ×3 (12:26→18:06)
[2020-05-04] MEDS: methylPREDNISolone SOD SUCC 40 MG/ML VIAL IV SCH ×2 (14:13→22:01)
[2020-05-04 16:00] VITALS: BP 120/72
--- NOTE | 2020-05-04 18:00 | NUR ---
When in the patient's room realized she was also using inhaler from home. Explained that she is doubling dose on medication and patient says she will not use home inhaler anymore.
[2020-05-04] MEDS: MONTELUKAST SODIUM 10 MG TABLET PO SCH (18:06)
--- NOTE | 2020-05-04 18:51 | NUR ---
Patient is resting in bed, she complained about room being hot so i called engineering to take a look at the air conditioner. No signs of distress at this time. IV is in tact and patent on left AC. Safety precautions are in place. Will endorse patient to the oncoming nurse.
[2020-05-04 20:12] VITALS: BP 118/68
[2020-05-04] MEDS: levoFLOXacin 750 MG/D5W 150 ML PIGGYBACK IV SCH (22:18)
[2020-05-05 00:09] VITALS: BP 112/62
[2020-05-05] MEDS: MORPHINE SULFATE 4 MG/1 ML DISP.SYRIN IV PRN ×6 (00:15→22:50)
--- NOTE | 2020-05-05 00:43 | NUR ---
Received pt resting in bed. AAO x4. On 3L O2 via NC, no acute distress noted. C/o 8/10 generalized pain, PRN Morphine given. IV NS running 75cc/hr. ID seen pt. Covid negative result. Awaiting Dr. Gonzales to d/c isolation. Pt requesting shower and breathing treatment. Notified Dr. Tavarez with new order for albuterol and ok to shower. Called engineering for AC problem, as per engineering they have to call outside resources to fix it in the morning. Safety measures maintained. Call light and personal items within reach. Will continue to monitor.
[2020-05-05] MEDS: ALBUTEROL SULFATE 2.5 MG/3 ML NEBU NEB PRN ×2 (00:53→23:28)
[2020-05-05 04:09] VITALS: BP 131/82
[2020-05-05] MEDS: methylPREDNISolone SOD SUCC 40 MG/ML VIAL IV SCH ×2 (06:31→21:10)
[2020-05-05] MEDS: IPRATROPIUM/ALBUTEROL SULFATE 14.7 GM INHALER INH SCH (06:33)
[2020-05-05 06:46] LABS: BASOPHILS % (AUTO) 0.2 % (0.0-2.0); HEMATOCRIT 42.8 % (31.2-41.9); HEMOGLOBIN 13.8 g/dL (10.9-14.3); LYMPHOCYTES # (AUTO) 1.2 K/uL (20.0-40.0); LYMPHOCYTES % (AUTO) 6.5 % (20.5-51.5); MEAN CORPUSCULAR HEMOGLOBIN 27.1 uug (24.7-32.8); MEAN CORPUSCULAR HGB CONC 32 g/dL (32.3-35.6); MEAN CORPUSCULAR VOLUME 83.8 fL (75.5-95.3); MONOCYTES # (AUTO) 0.6 K/uL (2.0-10.0); MONOCYTES % (AUTO) 3.2 % (0.0-11.0); NEUTROPHILS # (AUTO) 16.6 K/uL (1.8-8.9); NEUTROPHILS % (AUTO) 90.1 % (38.5-71.5); PLATELET COUNT (AUTO) 226 K/uL (179-408); RED BLOOD CELL COUNT(AUTO) 5.11 MIL/uL (3.63-4.92); WHITE BLOOD COUNT (AUTO) 18.4 K/uL (3.8-11.8)
[2020-05-05 07:16] LABS: BILIRUBIN,TOTAL 0.2 mg/dL (0.2-1.0); CREATININE 1.1 mg/dL (0.6-1.3); POTASSIUM 4.4 mmol/L (3.5-5.1); TOTAL PROTEIN, SERUM 6.5 g/dL (6.4-8.2)
--- NOTE | 2020-05-05 08:00 | NUR ---
Received patient sleeping in bed. She does not seem to experiencing any respiratory distress at this time. She is on 3 L of oxygen and has a history of asthma. Auscultation shows some tightness at this time but no shortness of breath. IV in the left AC 20 gauge and is intact and patent. Patient is no longer on isolation because Covid test came back negative. Safety precautions in place, bed in lowest position, and locked with alarm activated. Patient call light and personal belongings are within reach. Will continue to monitor and observe.
--- NOTE | 2020-05-05 08:05 | NUR ---
Patient was not hooked up to IV fluids, she said she requested from the night nurse to have a break so she could slepp.
[2020-05-05] MEDS ORDERED: THEOPHYLLINE ANHYDROUS 100 MG TAB.SR.12H PO SCH (09:15)
[2020-05-05] MEDS: IPRATROPIUM BROMIDE 0.5 MG/2.5 ML NEBU NEB SCH ×4 (09:15→19:54)
[2020-05-05] MEDS: ALBUTEROL SULFATE 2.5 MG/3 ML NEBU NEB SCH ×4 (09:15→19:54)
[2020-05-05 09:32] LABS: THYROID STIMULATING HORMONE 0.219 mIU/mL (0.358-3.740)
--- NOTE | 2020-05-05 09:38 | NUR ---
RT RT NOT AWARE OF TX AT THIS TIME. WILL START TX AT SCHEDULE TIME 1100.
[2020-05-05] MEDS ORDERED: IPRATROPIUM/ALBUTEROL SULFATE 14.7 GM INHALER INH PRN (11:00)
[2020-05-05 12:00] VITALS: BP 125/73
[2020-05-05] MEDS: THEOPHYLLINE ANHYDROUS 100 MG PO SCH (12:59)
[2020-05-05] MEDS: FAMOTIDINE 20 MG TABLET PO SCH ×2 (14:52→21:10)
--- NOTE | 2020-05-05 16:00 | NUR ---
Patient refused DVT pumps, says she "I have restless leg syndrome and that having it would drive her nuts"
--- NOTE | 2020-05-05 16:00 | NUR ---
Patient requested to be taken off IV fluids for awhile, disconnected and will restart.
[2020-05-05 16:17] VITALS: BP 119/66
[2020-05-05] MEDS: MONTELUKAST SODIUM 10 MG TABLET PO SCH (17:26)
--- NOTE | 2020-05-05 18:21 | NUR ---
Patient is resting in bed. Gave medications as ordered. No signs of respiratory distress at this time, patient is on 3L of oxygen. IV is in tact and patent on left AC. Safety precautions are in place, bed in the lowest position and locked, belongings and call light within reach. Patient is not longer on isolation, DC when covid test came back negative. Will endorse patient to the oncoming nurse.
[2020-05-05 20:12] VITALS: BP 125/81
[2020-05-05] MEDS ORDERED: ATORVASTATIN 20 MG TABLET PO SCH (21:00)
[2020-05-06 00:06] VITALS: BP 128/75
--- NOTE | 2020-05-06 00:24 | NUR ---
dr. salazar contacted for patient c/o of pain despite administration of morphine. new order for dilaudid 1mg IVP x1 to be administered now.
[2020-05-06] MEDS ORDERED: levoFLOXacin 750MG/D5W 150 ML IV ONE (00:29)
[2020-05-06] MEDS ORDERED: HYDROMORPHONE 1 MG/1 ML DISP.SYRIN IVP ONE (00:30)
[2020-05-06] MEDS: levoFLOXacin 750 MG/D5W 150 ML PIGGYBACK IV SCH (00:39)
[2020-05-06] MEDS: ALBUTEROL SULFATE 2.5 MG/3 ML NEBU NEB PRN (03:26)
[2020-05-06 04:09] VITALS: BP 117/72
[2020-05-06] MEDS: MORPHINE SULFATE 4 MG/1 ML DISP.SYRIN IV PRN ×3 (05:28→14:08)
[2020-05-06 07:13] LABS: BASOPHILS # (AUTO) 0.1 K/uL (0.0-8.0); BASOPHILS % (AUTO) 0.3 % (0.0-2.0); HEMATOCRIT 43.4 % (31.2-41.9); HEMOGLOBIN 13.9 g/dL (10.9-14.3); LYMPHOCYTES # (AUTO) 1.4 K/uL (20.0-40.0); LYMPHOCYTES % (AUTO) 7.1 % (20.5-51.5); MEAN CORPUSCULAR HEMOGLOBIN 26.9 uug (24.7-32.8); MEAN CORPUSCULAR HGB CONC 32 g/dL (32.3-35.6); MEAN CORPUSCULAR VOLUME 83.8 fL (75.5-95.3); MONOCYTES # (AUTO) 1.1 K/uL (2.0-10.0); MONOCYTES % (AUTO) 5.4 % (0.0-11.0); NEUTROPHILS # (AUTO) 17.2 K/uL (1.8-8.9); NEUTROPHILS % (AUTO) 87.2 % (38.5-71.5); PLATELET COUNT (AUTO) 237 K/uL (179-408); RED BLOOD CELL COUNT(AUTO) 5.18 MIL/uL (3.63-4.92); WHITE BLOOD COUNT (AUTO) 19.7 K/uL (3.8-11.8)
[2020-05-06 07:26] LABS: PHOSPHOROUS 2.3 mg/dL (2.5-4.9); POTASSIUM 3.9 mmol/L (3.5-5.1)
[2020-05-06 07:33] LABS: THYROID STIMULATING HORMONE 0.111 mIU/mL (0.358-3.740)
--- NOTE | 2020-05-06 07:40 | NUR ---
patient is alert, oriented x4, no sob, resp even nonlabored, skin warm and dry to touch, no acute distress noted,
[2020-05-06] MEDS: ALBUTEROL SULFATE 2.5 MG/3 ML NEBU NEB SCH ×3 (07:54→16:09)
[2020-05-06] MEDS: IPRATROPIUM BROMIDE 0.5 MG/2.5 ML NEBU NEB SCH ×3 (07:54→16:09)
[2020-05-06] MEDS: methylPREDNISolone SOD SUCC 40 MG/ML VIAL IV SCH (08:20)
[2020-05-06] MEDS: THEOPHYLLINE ANHYDROUS 100 MG PO SCH (08:20)
[2020-05-06] MEDS: FAMOTIDINE 20 MG TABLET PO SCH (08:20)
[2020-05-06] MEDS ORDERED: ALBUTEROL SULFATE 2.5 MG/3 ML NEBU NEB PRN (08:45)
[2020-05-06] MEDS ORDERED: NEUTRA PHOS PACKET PO ONE (09:30)
[2020-05-06] MEDS ORDERED: METFORMIN HCL 500 MG TABLET PO SCH (09:30)
--- NOTE | 2020-05-06 11:49 | NUR ---
RT PT REFUSED TX AT THIS TIME PT TSTED SHE WILL WAIT UNTIL MD CHANGES TX ORDERS TO XOPENEX. PT HAS NO DISTRESS AT THIS TIME NO SOB NOTED.
[2020-05-06 12:00] VITALS: BP 121/74
[2020-05-06] MEDS ORDERED: LEVO500T2 PO (15:36)
[2020-05-06] MEDS ORDERED: METF-440 PO (15:36)
[2020-05-06] MEDS ORDERED: ATOR20TA PO (15:36)
[2020-05-06] MEDS ORDERED: OXYC-128 PO (15:36)
--- NOTE | 2020-05-06 16:00 | NUR ---
patient is alert, oriented x4, verbally responsive, no sob, resp even nonlabored, skin warm and dry to touch, no distress noted, patient is ambulatory, independent with adls, being discharged home, daughter is picking her up, Meds sent electronically to pharmacy, patient stated meds are sent to different pharmacy, however patient was able to talk to her pharmacy, and patient stated they are going to transfer all my meds to my pharmacy tomorrow, patient stated she is ok to get her Meds tomorrow from her pharmacy, no skin issues noted, patient is on room air, no distress noted saturating from 95-97% at room air, no audible wheezing noted, patient own meds from pharmacy given to patient. Addendum: 05/06/20 at 1711 by ELVIA PONCE RN, RN belongings accounted and signed sent with patient. Addendum: 05/06/20 at 1716 by ELVIA PONCE RN, RN belongings are accounted and signed sent with patient , ID and IV removed
--- NOTE | 2020-05-06 16:15 | NUR ---
patient stated she understood discharge instructions.
--- NOTE | 2020-05-06 16:45 | NUR ---
patient transferred to her daughter car safely.
[2020-05-06] MEDS ORDERED: predniSONE 20 MG TABLET PO SCH (18:00)
[2020-05-07 08:02] LABS: ABG BASE EXCESS -1.4 mmol/L; ABG HCO3 22.8 mmol/L; ABG PH 7.408 (7.350-7.450); ABG PO2 70.2 mmHg (75.0-100.0); ABG SITE RIGHT RADIAL; MetHb 0.3 % (0.0-1.5); VENT MODE Room Air
== END 2020-05-06 15:45 | disposition home or self-care (01) | DRG 140 ==
LOC: ER 21:46 → TELE3 05-04 08:18 → MEDSURG3 05-06 08:45
PROVIDERS: ADMIT Internal Medicine; ATTEND Internal Medicine
DX: J44.1 Chronic obstructive pulmonary disease with (acute) exacerbation (principal); J44.0 Chronic obstructive pulmonary disease with (acute) lower respiratory infection; J18.9 Pneumonia, unspecified organism; E66.01 Morbid (severe) obesity due to excess calories; Z68.41 Body mass index [BMI] 40.0-44.9, adult; Z71.3 Dietary counseling and surveillance; K29.00 Acute gastritis without bleeding; K44.9 Diaphragmatic hernia without obstruction or gangrene; M79.7 Fibromyalgia; M94.0 Chondrocostal junction syndrome [Tietze]; E03.9 Hypothyroidism, unspecified; E78.5 Hyperlipidemia, unspecified; F17.200 Nicotine dependence, unspecified, uncomplicated; F41.9 Anxiety disorder, unspecified; L30.9 Dermatitis, unspecified; Z88.0 Allergy status to penicillin; G43.909 Migraine, unspecified, not intractable, without status migrainosus; R74.0 Nonspecific elevation of levels of transaminase and lactic acid dehydrogenase [LDH]; K21.9 Gastro-esophageal reflux disease without esophagitis; E66.9 Obesity, unspecified; K76.0 Fatty (change of) liver, not elsewhere classified; Z79.52 Long term (current) use of systemic steroids; Z87.11 Personal history of peptic ulcer disease; R09.1 Pleurisy; E05.90 Thyrotoxicosis, unspecified without thyrotoxic crisis or storm; E09.9 Drug or chemical induced diabetes mellitus without complications; T38.0X5A Adverse effect of glucocorticoids and synthetic analogues, initial encounter; Y92.009 Unspecified place in unspecified non-institutional (private) residence as the place of occurrence of the external cause; Z79.84 Long term (current) use of oral hypoglycemic drugs
CPT/HCPCS: 36415; 36600; 70030-TC; 71045; 71275; 83605; 83615; 83735; 84100; 84443; 85025; 85730; 86140; 87040; 87086; 93005; 94640; 94664; A4663; G0378; J1100; J1170; J1956; J2270; J2405; J2920; J3535; J3590; J7030; J7050; J8499; Q9967; U0003-CS

== ENCOUNTER 2021-01-12 15:16 | Emergency (ER) | payer OTHER ==
[~2021-01-12] VITALS: Ht 157.5 cm; Wt 103.0 kg
[~2021-01-12 15:16] MED LIST changes: +ATOR20TA PO; -CETI-110 PO; +CETI-90 PO; +LEVO500T2 PO; +METF-440 PO; +OXYC-128 PO
--- NOTE | 2021-01-12 15:37 | NUR ---
at bedside for assessment
[2021-01-12] MEDS ORDERED: ALBUTEROL SULFATE 2.5 MG/3 ML NEBU NEB ONE (15:45)
[2021-01-12] MEDS ORDERED: OXYCODONE/APAP 5-325 MG TABLET PO ONE ×2 (15:45→18:30)
[2021-01-12] MEDS ORDERED: OXYCODONE/APAP 5-325 MG TABLET ONE ×2 (15:53→18:33)
[2021-01-12 15:56] LABS: BASOPHILS # (AUTO) 0.2 K/uL (0.0-8.0); EOSINOPHILS # (AUTO) 0.3 K/uL (0.0-0.7); EOSINOPHILS % (AUTO) 1.6 % (0.0-7.0); HEMATOCRIT 44.8 % (31.2-41.9); HEMOGLOBIN 14.7 g/dL (10.9-14.3); LYMPHOCYTES # (AUTO) 5.2 K/uL (20.0-40.0); LYMPHOCYTES % (AUTO) 25.8 % (20.5-51.5); MEAN CORPUSCULAR HGB CONC 33 g/dL (32.3-35.6); MEAN CORPUSCULAR VOLUME 85.4 fL (75.5-95.3); MONOCYTES # (AUTO) 1.1 K/uL (2.0-10.0); MONOCYTES % (AUTO) 5.4 % (0.0-11.0); NEUTROPHILS # (AUTO) 13.3 K/uL (1.8-8.9); NEUTROPHILS % (AUTO) 66.2 % (38.5-71.5); PLATELET COUNT (AUTO) 278 K/uL (179-408); RED BLOOD CELL COUNT(AUTO) 5.25 MIL/uL (3.63-4.92); WHITE BLOOD COUNT (AUTO) 20.1 K/uL (3.8-11.8)
[2021-01-12] MEDS ORDERED: ONDANSETRON ODT 4 MG TAB.RAPDIS ONE (15:56)
[2021-01-12] MEDS ORDERED: ONDANSETRON ODT 4 MG TAB.RAPDIS SL ONE (16:00)
[2021-01-12 16:01] LABS: CREATININE 0.9 mg/dL (0.6-1.3); POTASSIUM 3.7 mmol/L (3.5-5.1)
[2021-01-12 16:13] LABS: BILIRUBIN,DIRECT 0.1 mg/dL (0.0-0.2); BILIRUBIN,TOTAL 0.4 mg/dL (0.2-1.0); TOTAL PROTEIN, SERUM 6.4 g/dL (6.4-8.2)
[2021-01-12] MEDS ORDERED: SWABABLE VALVE TRANSFER SET EA MC ONE (17:33)
[2021-01-12] MEDS ORDERED: IV NORMAL SALINE 250 ML IV ONE (17:33)
[2021-01-12] MEDS ORDERED: IOHEXOL 350 100 ML INFUS..BTL ONE (17:33)
--- NOTE | 2021-01-12 17:40 | NUR ---
environmental engineering technician at bedside to pickle pumper patient for CT scan
--- NOTE | 2021-01-12 17:56 | NUR ---
Patient returned to room after CT scan
[2021-01-12] MEDS ORDERED: LIDOCAINE 5% PATCH TD ONE ×2 (18:13→18:15)
--- NOTE | 2021-01-12 18:32 | NUR ---
Patient discharged to home in stable condition. no signs of acute distress, able to ambulate with steady gait. Written and verbal after care instructions given. Patient verbalizes understanding of instructions. Stressed follow up or return to ER for worsening s/s.
[2021-01-12 18:36] VITALS: BP 101/60
== END 2021-01-12 18:37 | disposition home or self-care (01) ==
LOC: ER 15:17
DX: J45.901 Unspecified asthma with (acute) exacerbation (principal); R04.2 Hemoptysis; Z72.0 Tobacco use; M79.7 Fibromyalgia; G89.29 Other chronic pain; R07.89 Other chest pain; F41.9 Anxiety disorder, unspecified; Z79.899 Other long term (current) drug therapy; R94.31 Abnormal electrocardiogram [ECG] [EKG]; J98.11 Atelectasis; R79.1 Abnormal coagulation profile
CPT/HCPCS: 36415; 71045; 71275; 85025; 85730; 93005; J7050; Q0162; Q9967

== ENCOUNTER 2021-02-10 12:52 | Inpatient (IN) | payer OTHER ==
[~2021-02-10] VITALS: Ht 157.5 cm; Wt 73.2 kg
[~2021-02-10 12:52] MED LIST changes: -BUDE10.2 IH; -LEVO500T2 PO; -METF-440 PO; -OXYC-128 PO
--- NOTE | 2021-02-10 13:10 | NUR ---
Dr Wheatley at the bedside for MSE.
[2021-02-10] MEDS ORDERED: ONDANSETRON 4 MG/2 ML VIAL IV ONE ×2 (13:15→15:00)
[2021-02-10] MEDS ORDERED: IV NORMAL SALINE 1000 ML BAG IV ONE ×2 (13:15→15:00)
[2021-02-10] MEDS ORDERED: MORPHINE SULFATE 2 MG/1 ML DISP.SYRIN IV ONE (13:15)
[2021-02-10] MEDS ORDERED: MORPHINE SULFATE 4 MG/1 ML DISP.SYRIN ONE ×3 (13:32→16:03)
[2021-02-10] MEDS ORDERED: ONDANSETRON 4 MG/2 ML VIAL ONE ×2 (13:32→14:56)
[2021-02-10 13:34] LABS: BASOPHILS # (AUTO) 0.1 K/uL (0.0-8.0); BASOPHILS % (AUTO) 0.3 % (0.0-2.0); EOSINOPHILS # (AUTO) 0.2 K/uL (0.0-0.7); EOSINOPHILS % (AUTO) 1.2 % (0.0-7.0); HEMATOCRIT 48.9 % (31.2-41.9); HEMOGLOBIN 15.9 g/dL (10.9-14.3); LYMPHOCYTES # (AUTO) 1.1 K/uL (20.0-40.0); MEAN CORPUSCULAR HEMOGLOBIN 27.9 uug (24.7-32.8); MEAN CORPUSCULAR HGB CONC 33 g/dL (32.3-35.6); MEAN CORPUSCULAR VOLUME 85.7 fL (75.5-95.3); MONOCYTES # (AUTO) 1.5 K/uL (2.0-10.0); MONOCYTES % (AUTO) 8.1 % (0.0-11.0); NEUTROPHILS # (AUTO) 15.7 K/uL (1.8-8.9); NEUTROPHILS % (AUTO) 84.4 % (38.5-71.5); PLATELET COUNT (AUTO) 271 K/uL (179-408); WHITE BLOOD COUNT (AUTO) 18.6 K/uL (3.8-11.8)
[2021-02-10 13:39] LABS: POTASSIUM 4.4 mmol/L (3.5-5.1)
--- NOTE | 2021-02-10 13:39 | NUR ---
PT out of ER for CT scan.
[2021-02-10 13:44] LABS: BILIRUBIN,DIRECT 0.1 mg/dL (0.0-0.2); BILIRUBIN,TOTAL 0.6 mg/dL (0.2-1.0); TOTAL PROTEIN, SERUM 7.7 g/dL (6.4-8.2)
[2021-02-10] MEDS ORDERED: MORPHINE SULFATE 4 MG/1 ML DISP.SYRIN IV ONE ×2 (14:00→15:45)
[2021-02-10] MEDS ORDERED: ALBUTEROL SULFATE 2.5 MG/3 ML NEBU NEB ONE (15:45)
[2021-02-10] MEDS ORDERED: ALBUTEROL SULFATE 2.5 MG/3 ML NEBU ONE (15:57)
[2021-02-10] MEDS ORDERED: ALBUTEROL SULFATE 1.25 MG/3 ML NEBU ONE (15:57)
--- NOTE | 2021-02-10 16:02 | NUR ---
LOUISE BATRES spoke to Dr Frazier, for possible transfer.
--- NOTE | 2021-02-10 17:00 | NUR ---
Pt accepted to be transfered to [facility] via ambulance per Christy(case manger). Awaiting COVID result and Bed/transfer info. Pt sitting in chair, watching TV. NAD noted.
[2021-02-10 19:17] LABS: *BILIRUBIN,URIN NEGATIVE (NEGATIVE); *BLOOD, URINE 1+ (NEGATIVE); *COLOR,URINE YELLOW (YELLOW); *KETONES,URINE 1+ (NEGATIVE); *UROBILINOGEN,URINE 0.2 E.U./dl (NORMAL); LEUKOCYTE ESTERASE ,URINE NEGATIVE (NEGATIVE); NITRITE, URINE POSITIVE (NEGATIVE); UGLUCOSE NEGATIVE (NEGATIVE)
[2021-02-10 19:26] LABS: *CLARITY,URINE HAZY (CLEAR); BACTERIA,URINE MODERATE /HPF (NONE SEEN); RBC,URINE 0-3 /HPF (0-3); URIC ACID CRYSTALS,URINE MODERATE /HPF (NONE SEEN)
[2021-02-10 19:27] LABS: SQUAMOUS EPITHELIAL CELL,UR MODERATE /HPF (NONE SEEN)
[2021-02-10] MEDS ORDERED: HYDROMORPHONE 1 MG/1 ML DISP.SYRIN IV ONE (19:30)
[2021-02-10] MEDS ORDERED: HYDROMORPHONE 1 MG/1 ML DISP.SYRIN ONE (19:41)
--- NOTE | 2021-02-10 20:29 | NUR ---
Anushka LOPEZ from [facility] called stating she will call back in 10 min to give us a bed.
--- NOTE | 2021-02-10 21:25 | NUR ---
Dr. Tavarez accepted patient as inpatient.
--- NOTE | 2021-02-10 22:01 | NUR ---
Given report to Nereyda in med surg
--- NOTE | 2021-02-10 22:08 | NUR ---
Received patient from ED via wheelchair. Admitted under Dr. Tavarez for Abdominal Pain to med/surg. Pt AAOX4, and c/o of SOB O2 @ 89-90%, placed on 1.5L NC O2 @ 94%. Ambulatory and steady to the bathroom. ID band on, bed locked in lowest position and safety measures in place.
[2021-02-10 22:10] VITALS: BP 147/86
--- NOTE | 2021-02-10 22:12 | NUR ---
Pt. admitted to Med Surg , under care of Dr. Tavarez Dx: untractable abdominal pain Belongs List completed Patient in stable condition.
[2021-02-10] MEDS ORDERED: IBUPROFEN 400 MG TABLET PO PRN (23:45)
[2021-02-11] MEDS ORDERED: METRONIDAZOLE 500 MG/NS 100ML 500 MG in PREMIXED 1 EACH IV SCH (00:04)
[2021-02-11] MEDS: MORPHINE SULFATE 2 MG/1 ML DISP.SYRIN IV PRN ×2 (00:07→03:27)
[2021-02-11] MEDS: ONDANSETRON 4 MG/2 ML VIAL IV PRN ×2 (00:14→08:41)
[2021-02-11] MEDS: ACETAMINOPHEN 325 MG TABLET PO PRN ×2 (00:15→16:05)
[2021-02-11] MEDS: ALBUTEROL SULFATE 2.5 MG/ 0.5 ML NEBU NEB PRN ×2 (00:28→09:23)
[2021-02-11] MEDS: IPRATROPIUM BROMIDE 0.5 MG/2.5 ML NEBU NEB PRN ×2 (00:28→09:23)
[2021-02-11] MEDS ORDERED: METRONIDAZOLE 500 MG/NS 100ML 100 ML IV ONE ×2 (00:46→01:01)
[2021-02-11] MEDS ORDERED: levoFLOXacin 750MG/D5W 150 ML IV ONE (00:47)
[2021-02-11] MEDS ORDERED: MAG HYDROX/AL HYDROX/SIMETH 30 ML LIQUID UDC PO PRN (01:30)
[2021-02-11] MEDS: levoFLOXacin 750MG/D5W 750 MG in PREMIXED 1 EACH IV SCH ×2 (02:03→20:18)
[2021-02-11 04:29] VITALS: BP 137/87
[2021-02-11] MEDS: PANTOPRAZOLE SODIUM 40 MG TABLET.DR PO SCH (06:14)
--- NOTE | 2021-02-11 06:24 | NUR ---
Patient continues to c/o abdominal pain. Per patient Morphine provided temporary relief, unable to get comfortable and get any rest. Right side abdominal pain 07/03. Notified Niko Lee NP. New orders given to d/c morphine and start Dilaudid 0.5mg IV Q4hr PRN pain. Will administer per order.
[2021-02-11] MEDS: HYDROMORPHONE 1 MG/1 ML DISP.SYRIN IV PRN ×5 (06:36→23:55)
[2021-02-11 06:48] LABS: BASOPHILS % (AUTO) 0.3 % (0.0-2.0); EOSINOPHILS # (AUTO) 0.1 K/uL (0.0-0.7); HEMATOCRIT 45.2 % (31.2-41.9); HEMOGLOBIN 14.8 g/dL (10.9-14.3); LYMPHOCYTES # (AUTO) 1.5 K/uL (20.0-40.0); LYMPHOCYTES % (AUTO) 12.1 % (20.5-51.5); MEAN CORPUSCULAR HEMOGLOBIN 28.2 uug (24.7-32.8); MEAN CORPUSCULAR HGB CONC 33 g/dL (32.3-35.6); MEAN CORPUSCULAR VOLUME 86.1 fL (75.5-95.3); MONOCYTES # (AUTO) 0.9 K/uL (2.0-10.0); MONOCYTES % (AUTO) 7.4 % (0.0-11.0); NEUTROPHILS # (AUTO) 9.6 K/uL (1.8-8.9); NEUTROPHILS % (AUTO) 79.2 % (38.5-71.5); PLATELET COUNT (AUTO) 184 K/uL (179-408); RED BLOOD CELL COUNT(AUTO) 5.25 MIL/uL (3.63-4.92); WHITE BLOOD COUNT (AUTO) 12.2 K/uL (3.8-11.8)
[2021-02-11 07:02] LABS: THYROID STIMULATING HORMONE 0.951 mIU/mL (0.358-3.740)
[2021-02-11 07:04] LABS: BILIRUBIN,TOTAL 0.2 mg/dL (0.2-1.0); CREATININE 0.9 mg/dL (0.6-1.3); MAGNESIUM 1.9 mg/dL (1.8-2.4); PHOSPHOROUS 3.2 mg/dL (2.5-4.9); POTASSIUM 3.6 mmol/L (3.5-5.1); TOTAL PROTEIN, SERUM 6.6 g/dL (6.4-8.2)
--- NOTE | 2021-02-11 08:00 | NUR ---
pt received sitting on the bed alert and oriented. pt continues to complain of nausea, but initially refused zofran stating that it does not help her. however, after a few episodes of dry heaving, pt requested zofran, which was administered as ordered. pt states she does not like having nasal cannula on and refused. pt saturation on room air is 92%. she requests the nebulizer treatments and respiratory therapy was contacted. call light and personal belongings within easy reach. will continue to monitor.
[2021-02-11] MEDS: METRONIDAZOLE 500 MG/NS 100ML 500 MG in PREMIXED 1 EACH IV SCH ×3 (08:30→23:54)
[2021-02-11] MEDS: ESCITALOPRAM OXALATE 10 MG TABLET PO SCH (08:31)
[2021-02-11] MEDS ORDERED: predniSONE 20 MG TABLET PO SCH (09:00)
[2021-02-11] MEDS ORDERED: MONTELUKAST SODIUM 10 MG TABLET PO SCH (09:00)
[2021-02-11] MEDS ORDERED: THEOPHYLLINE ANHYDROUS 400 MG PO SCH (09:00)
[2021-02-11 12:00] VITALS: BP 148/87
[2021-02-11] MEDS ORDERED: PRED20TA PO (14:01)
[2021-02-11] MEDS: THEOPHYLLINE ANHYDROUS 100 MG PO SCH (14:17)
[2021-02-11 16:00] VITALS: BP 123/75
--- NOTE | 2021-02-11 16:00 | NUR ---
PATIENT IS COMPLAINING OF HEADACHE AND WAS GIVEN ACETAMINOPHEN ORDERED. PATIENT STATES THAT DILAUDID WAS HELPFUL IN LESSENING HER PAIN AND SHE STATES SHE WAS ABLE TO SLEEP FOR THE FIRST TIME IN TWO DAYS. PATIENT IS RESTING IN THE CHAIR AT THIS TIME. OFFERED O2 VIA NC ORDERED, BUT PATIENT REFUSED. PATIENT IS SATURATING AT 93% ON ROOM AIR AT THIS TIME. CALL LIGHT AND PERSONAL BELONGINGS ARE WITHIN EASY REACH. WILL CONTINUE TO MONITOR.
[2021-02-11] MEDS: METFORMIN HCL 500 MG TABLET PO SCH (18:00)
--- NOTE | 2021-02-11 18:20 | NUR ---
Patient has been vomiting intermittently throughout the day, as self-reported by the patient. In addition, patient has been experiencing poor appetite on a clear liquid diet and although encouraged to drink fluids, patient has been drinking a small amount. Patient also will be NPO p midnight. Therefore, the 1800 dose of metformin was held.
--- NOTE | 2021-02-11 20:00 | NUR ---
RECEIVED PATIENT AWAKE IN BED. A/O X4. C/O ABDOMINAL PAIN, GIVEN DILAUDID 0.5MG IV PER COMMUNICATIONS EXECUTIVE. VS WNL. NO RESP. DISTRESS NOTED. NEW IV HEPLOCK INSERTED TO RIGHT HAND #20 GAUGE. DENIES ANY NAUSEA OR VOMITING. CALL LIGHT IN REACH. ALL NEEDS ATTENDED. WILL CONTINUE TO MONITOR AND ASSESS.
[2021-02-11 20:15] VITALS: BP 125/77
[2021-02-11] MEDS: GABAPENTIN 300 MG CAPSULE PO SCH (21:05)
[2021-02-11] MEDS: ATORVASTATIN 20 MG TABLET PO SCH (21:05)
--- NOTE | 2021-02-12 | NUR ---
PATIENT NPO ORDERED.
[2021-02-12] MEDS: ACETAMINOPHEN 325 MG TABLET PO PRN (00:06)
[2021-02-12] MEDS: IPRATROPIUM BROMIDE 0.5 MG/2.5 ML NEBU NEB PRN ×2 (00:08→15:50)
[2021-02-12] MEDS: ALBUTEROL SULFATE 2.5 MG/ 0.5 ML NEBU NEB PRN ×2 (00:09→15:50)
[2021-02-12] MEDS: HYDROMORPHONE 1 MG/1 ML DISP.SYRIN IV PRN ×5 (04:02→22:36)
[2021-02-12 04:50] VITALS: BP 120/79
[2021-02-12] MEDS: PANTOPRAZOLE SODIUM 40 MG TABLET.DR PO SCH (06:03)
[2021-02-12 06:23] LABS: BASOPHILS % (AUTO) 0.4 % (0.0-2.0); EOSINOPHILS % (AUTO) 0.5 % (0.0-7.0); HEMATOCRIT 44.8 % (31.2-41.9); HEMOGLOBIN 14.5 g/dL (10.9-14.3); LYMPHOCYTES # (AUTO) 2.1 K/uL (20.0-40.0); LYMPHOCYTES % (AUTO) 27.9 % (20.5-51.5); MEAN CORPUSCULAR HEMOGLOBIN 27.2 uug (24.7-32.8); MEAN CORPUSCULAR HGB CONC 33 g/dL (32.3-35.6); MEAN CORPUSCULAR VOLUME 83.8 fL (75.5-95.3); MONOCYTES # (AUTO) 0.8 K/uL (2.0-10.0); MONOCYTES % (AUTO) 10.5 % (0.0-11.0); NEUTROPHILS # (AUTO) 4.6 K/uL (1.8-8.9); NEUTROPHILS % (AUTO) 60.7 % (38.5-71.5); PLATELET COUNT (AUTO) 188 K/uL (179-408); RED BLOOD CELL COUNT(AUTO) 5.34 MIL/uL (3.63-4.92); WHITE BLOOD COUNT (AUTO) 7.6 K/uL (3.8-11.8)
[2021-02-12 06:53] LABS: CREATININE 0.9 mg/dL (0.6-1.3); POTASSIUM 3.9 mmol/L (3.5-5.1)
[2021-02-12] MEDS: METRONIDAZOLE 500 MG/NS 100ML 500 MG in PREMIXED 1 EACH IV SCH ×3 (07:38→23:15)
[2021-02-12] MEDS: METFORMIN HCL 500 MG TABLET PO SCH ×2 (07:38→17:43)
--- NOTE | 2021-02-12 08:00 | NUR ---
PATIENT RECEIVED IN BED WITH EYES OPEN, ALERT AND ORIENTED X4. PATIENT STATES C/O OF SOB ON EXERTION BUT REFUSES OXYGEN AND NEBULIZER TX AT THIS TIME. PATIENT STATES THAT SHE WILL TRY THE OXYGEN AFTER HER EGD THIS MORNING AND WAS ENCOURAGED TO DEEP BREATH. PATIENT STATES SHE HAS NO OTHER COMPLAINTS AT THIS TIME. PATIENT WAS SENT DOWN FOR EGD PROCEDURE WITH DR. OLEARY IN BED IN SATISFACTORY CONDITION.
[2021-02-12] MEDS: predniSONE 20 MG TABLET PO SCH (09:00)
[2021-02-12] MEDS: THEOPHYLLINE ANHYDROUS 100 MG PO SCH (09:00)
[2021-02-12] MEDS: ESCITALOPRAM OXALATE 10 MG TABLET PO SCH (09:00)
--- NOTE | 2021-02-12 09:10 | NUR ---
PATIENT BROUGHT BACK FROM HER EGD PROCEDURE VIA BED. PATIENT'S V/S ARE WNL AND STATES SHE HAS A BIT OF N/V. PATIENT REFUSED ZOFRAN. ORAL FLUIDS ENCOURAGED. PATIENT STATES SHE HAS NO OTHER DISCOMFORTS AT THIS TIME. CALL LIGHT AND PERSONAL BELONGINGS WITHIN EASY REACH. WILL CONTINUE TO MONITOR.
[2021-02-12] MEDS ORDERED: ZOLPIDEM 5 MG TABLET PO PRN (09:45)
[2021-02-12 11:30] VITALS: BP 118/67
[2021-02-12] MEDS ORDERED: IOHEXOL 350 100 ML INFUS..BTL ONE (11:30)
[2021-02-12] MEDS ORDERED: SWABABLE VALVE TRANSFER SET EA MC ONE (11:31)
[2021-02-12] MEDS ORDERED: IV NORMAL SALINE 250 ML IV ONE (11:31)
[2021-02-12 15:49] VITALS: BP 123/68
--- NOTE | 2021-02-12 15:59 | NUR ---
PATIENT'S DAUGHTER BRYN AT BEDSIDE. PATIENT STATES THAT SHE WOULD LIKE HER BREATHING TX. RESPIRATORY THERAPIST IS NOW AT BEDSIDE ADMINISTERING THE NEBULIZER TREATMENT ORDERED. PATIENT STATES THAT SHE IS FEELING BETTER AND HAS NO DISCOMFORTS AT THIS TIME. ALL NEEDS HAVE BEEN ATTENDED TO. CALL LIGHT AND PERSONAL BELONGINGS WITHIN EASY REACH. WILL CONTINUE TO MONITOR.
[2021-02-12] MEDS: MONTELUKAST SODIUM 10 MG TABLET PO SCH (17:42)
--- NOTE | 2021-02-12 17:44 | NUR ---
PATIENT NOT GIVEN METFORMIN BECAUSE PATIENT HAD A CTA THIS AFTERNOON WITH CONTRAST.
[2021-02-12 20:00] VITALS: BP 126/72
[2021-02-12] MEDS ORDERED: levoFLOXacin 750 MG TABLET PO SCH (20:00)
[2021-02-12] MEDS: levoFLOXacin 750MG/D5W 750 MG in PREMIXED 1 EACH IV SCH (20:10)
[2021-02-12] MEDS: ATORVASTATIN 20 MG TABLET PO SCH (20:58)
[2021-02-12] MEDS: GABAPENTIN 300 MG CAPSULE PO SCH (20:58)
[2021-02-13] MEDS: HYDROMORPHONE 1 MG/1 ML DISP.SYRIN IV PRN ×5 (02:48→19:39)
[2021-02-13 04:00] VITALS: BP 111/57
[2021-02-13] MEDS: PANTOPRAZOLE SODIUM 40 MG TABLET.DR PO SCH (06:34)
[2021-02-13 06:48] LABS: BASOPHILS % (AUTO) 0.5 % (0.0-2.0); EOSINOPHILS # (AUTO) 0.3 K/uL (0.0-0.7); EOSINOPHILS % (AUTO) 4.3 % (0.0-7.0); HEMATOCRIT 42.9 % (31.2-41.9); HEMOGLOBIN 13.9 g/dL (10.9-14.3); LYMPHOCYTES # (AUTO) 2.3 K/uL (20.0-40.0); LYMPHOCYTES % (AUTO) 34.4 % (20.5-51.5); MEAN CORPUSCULAR HEMOGLOBIN 27.5 uug (24.7-32.8); MEAN CORPUSCULAR HGB CONC 32 g/dL (32.3-35.6); MEAN CORPUSCULAR VOLUME 84.7 fL (75.5-95.3); MONOCYTES # (AUTO) 0.9 K/uL (2.0-10.0); NEUTROPHILS # (AUTO) 3.2 K/uL (1.8-8.9); NEUTROPHILS % (AUTO) 47.8 % (38.5-71.5); PLATELET COUNT (AUTO) 181 K/uL (179-408); RED BLOOD CELL COUNT(AUTO) 5.06 MIL/uL (3.63-4.92); WHITE BLOOD COUNT (AUTO) 6.7 K/uL (3.8-11.8)
[2021-02-13 06:51] LABS: CREATININE 0.8 mg/dL (0.6-1.3); POTASSIUM 3.4 mmol/L (3.5-5.1)
--- NOTE | 2021-02-13 07:45 | NUR ---
Patient awake and watching tv. In no acute distress. Denies pain or sob. IV intact and patent. Bed low and locked. Patient is comfortable. Call light in reach. Will continue to monitor.
[2021-02-13] MEDS ORDERED: POTASSIUM CHLORIDE 20 MEQ TAB.PRT.SR PO ONE (08:00)
[2021-02-13] MEDS: ESCITALOPRAM OXALATE 10 MG TABLET PO SCH (08:16)
[2021-02-13] MEDS: METRONIDAZOLE 500 MG/NS 100ML 500 MG in PREMIXED 1 EACH IV SCH ×2 (08:16→15:27)
[2021-02-13] MEDS: predniSONE 20 MG TABLET PO SCH (08:16)
[2021-02-13] MEDS: THEOPHYLLINE ANHYDROUS 100 MG PO SCH (08:48)
[2021-02-13 11:00] VITALS: BP 121/67
[2021-02-13] MEDS: IPRATROPIUM BROMIDE 0.5 MG/2.5 ML NEBU NEB PRN (15:00)
[2021-02-13] MEDS: ALBUTEROL SULFATE 2.5 MG/ 0.5 ML NEBU NEB PRN (15:00)
[2021-02-13 16:00] VITALS: BP 115/69
[2021-02-13] MEDS: MONTELUKAST SODIUM 10 MG TABLET PO SCH (17:00)
--- NOTE | 2021-02-13 18:54 | NUR ---
Patient is watching tv. In no acute distress. Patient is on pain medication Dilaudid verbalized relief. Denies sob or chest pain. No adverse reaction noted with atb use. Patient is comfortable. Will endorse for continuity of care.
[2021-02-13 20:00] VITALS: BP 116/66
[2021-02-13] MEDS: GABAPENTIN 300 MG CAPSULE PO SCH (21:48)
[2021-02-13] MEDS: ATORVASTATIN 20 MG TABLET PO SCH (21:48)
[2021-02-13] MEDS: levoFLOXacin 750MG/D5W 750 MG in PREMIXED 1 EACH IV SCH (21:48)
[2021-02-13 22:56] VITALS: BP 127/61
[2021-02-14] MEDS: HYDROMORPHONE 1 MG/1 ML DISP.SYRIN IV PRN ×4 (00:24→13:16)
[2021-02-14] MEDS: METRONIDAZOLE 500 MG/NS 100ML 500 MG in PREMIXED 1 EACH IV SCH ×2 (00:24→07:58)
[2021-02-14 04:00] VITALS: BP 102/50
--- NOTE | 2021-02-14 04:55 | NUR ---
Patient received A/O X4. resting in bed watching TV all due medication administered PO as ordered tolerated well C/O back pain at 0024 and 0427 administered Dilaudid o.5 mg IV q 4 hrs prn with nonpharmacological efforts done VS WNL. no respiration distress IV on RIGHT HAND AC #20 gauge is infusing well Due Anabiotics via IV administered as ordered patient tolerated well no episodes of vomiting or nausea reported . PRN Ambien 5mg Po for sleeping administered as per pt. request and as ordered patient slept intermittently. All needs anticipated, clean and dry snacks and fluid tolerated. Pain management worked relieved pt. pain, resting in bed will continue close monitoring. all belongings with in reach. Call light with in reach. safety observation observed all time.
[2021-02-14] MEDS: PANTOPRAZOLE SODIUM 40 MG TABLET.DR PO SCH (06:34)
[2021-02-14 06:35] LABS: BASOPHILS % (AUTO) 0.4 % (0.0-2.0); EOSINOPHILS # (AUTO) 0.3 K/uL (0.0-0.7); EOSINOPHILS % (AUTO) 3.3 % (0.0-7.0); HEMATOCRIT 43.2 % (31.2-41.9); HEMOGLOBIN 13.9 g/dL (10.9-14.3); LYMPHOCYTES # (AUTO) 3.4 K/uL (20.0-40.0); LYMPHOCYTES % (AUTO) 42.7 % (20.5-51.5); MEAN CORPUSCULAR HEMOGLOBIN 27.6 uug (24.7-32.8); MEAN CORPUSCULAR HGB CONC 32 g/dL (32.3-35.6); MONOCYTES % (AUTO) 12.5 % (0.0-11.0); NEUTROPHILS # (AUTO) 3.3 K/uL (1.8-8.9); NEUTROPHILS % (AUTO) 41.1 % (38.5-71.5); PLATELET COUNT (AUTO) 199 K/uL (179-408); RED BLOOD CELL COUNT(AUTO) 5.03 MIL/uL (3.63-4.92)
[2021-02-14 06:48] LABS: POTASSIUM 3.6 mmol/L (3.5-5.1)
--- NOTE | 2021-02-14 07:36 | NUR ---
Patient is asleep but arousable to stimuli. No acute distress. No facial grimacing. Breathing even and non labored. Iv sites intact and patent. No infiltration and phlebitis noted. Patient comfortable. Bed is low and locked. Call light in reach. Will continue to monitor.
[2021-02-14] MEDS: ESCITALOPRAM OXALATE 10 MG TABLET PO SCH (08:29)
[2021-02-14] MEDS: predniSONE 20 MG TABLET PO SCH (08:29)
[2021-02-14] MEDS: THEOPHYLLINE ANHYDROUS 100 MG PO SCH (08:30)
[2021-02-14] MEDS ORDERED: METF-440 PO (10:43)
[2021-02-14] MEDS ORDERED: levoFLOXacin PO (10:43)
[2021-02-14] MEDS ORDERED: METR-147 PO (10:43)
[2021-02-14 11:53] VITALS: BP 109/55
--- NOTE | 2021-02-14 13:37 | NUR ---
Patient is discharged to home. Alert, oriented x4 able to make needs known. Breathing even and non labored. No respiratory distress noted. Patient denies diarrhea, verbalized stool is soft. Afebrile. No adverse reactions with atb use. Asked if she wants flu and pneumonia vaccines but she said she had allergic reaction after getting them years ago and refused. Patient is very pleasant and appreciative. Patient teaching done regarding her diagnoses her and medications that were discharged. She verbalized understanding. Patient given prescription medication, explained risks and benefits, verbalized understanding. IVs removed no bleeding noted. Patient given pain medication as requested before discharged. Belongings were inventoried by myself and the patient, and they were all in good condition verified by the patient. Skin remains intact. Patient left via wheelchair picked up by her daughter in stable condition.
[2021-02-14] MEDS ORDERED: PROPOFOL 200 MG/20 ML BOTTLE IV ONE (13:39)
[2021-02-14] MEDS ORDERED: LIDOCAINE-MPF 2% 5 ML VIAL IJ ONE (13:39)
[2021-02-14] MEDS ORDERED: METRONIDAZOLE 500 MG TABLET PO SCH (15:00)
[2021-02-14] MEDS ORDERED: METFORMIN HCL 500 MG TABLET PO SCH (18:00)
[2021-02-14] MEDS ORDERED: levoFLOXacin 750 MG TABLET PO SCH (21:00)
== END 2021-02-14 13:40 | disposition home or self-care (01) | DRG 241 ==
LOC: ER 12:53 → MEDSURG3 22:13
PROVIDERS: ADMIT Nurse Practitioner Acute Care; ATTEND Nurse Practitioner Acute Care
PROC: 0DB68ZX Excision of Stomach, Via Natural or Artificial Opening Endoscopic, Diagnostic (ICD-10-PCS; principal; 2021-02-11)
DX: K29.70 Gastritis, unspecified, without bleeding (principal); E44.1 Mild protein-calorie malnutrition; K76.0 Fatty (change of) liver, not elsewhere classified; E87.1 Hypo-osmolality and hyponatremia; R16.0 Hepatomegaly, not elsewhere classified; E88.09 Other disorders of plasma-protein metabolism, not elsewhere classified; K52.9 Noninfective gastroenteritis and colitis, unspecified; E11.9 Type 2 diabetes mellitus without complications; D72.829 Elevated white blood cell count, unspecified; J44.9 Chronic obstructive pulmonary disease, unspecified; M79.7 Fibromyalgia; E86.1 Hypovolemia; F39 Unspecified mood [affective] disorder; F41.9 Anxiety disorder, unspecified; G43.909 Migraine, unspecified, not intractable, without status migrainosus; Z88.0 Allergy status to penicillin; J45.909 Unspecified asthma, uncomplicated; Z87.11 Personal history of peptic ulcer disease; Z68.29 Body mass index [BMI] 29.0-29.9, adult; Z79.52 Long term (current) use of systemic steroids; Z20.822 Contact with and (suspected) exposure to COVID-19; Z79.84 Long term (current) use of oral hypoglycemic drugs
CPT/HCPCS: 36415; 70030-TC; 71045; 83605; 83690; 83735; 84100; 84443; 85025; 87086; 88313-TC; 88342; 93005; 94640; 94664; A4217; A4663; G0378; J1170; J1956; J2270; J2405; J3490; J3590; J7030; J7040; J7050; J7512; J8499; Q9967

== ENCOUNTER 2021-03-04 20:36 | Emergency (ER) | payer OTHER ==
[~2021-03-04] VITALS: Ht 157.5 cm; Wt 98.9 kg
[~2021-03-04 20:36] MED LIST changes: +METF-440 PO; +METR-147 PO; +levoFLOXacin PO
--- NOTE | 2021-03-04 20:55 | NUR ---
Pt ambulated to ER with c/o LLQ abd pain and n/v x 3 days. A/O x4, ambulatory. Accompanied by . No c/o chest pain/pressure.
--- NOTE | 2021-03-04 20:58 | NUR ---
Dr. Norton at bedside, MSE in progress.
[2021-03-04] MEDS ORDERED: IPRATROPIUM BROMIDE 0.5 MG/2.5 ML NEBU NEB ONE ×2 (21:15→22:15)
[2021-03-04] MEDS ORDERED: ONDANSETRON 4 MG/2 ML VIAL IV ONE (21:15)
[2021-03-04] MEDS ORDERED: MORPHINE SULFATE 4 MG/1 ML DISP.SYRIN IV ONE ×2 (21:15→23:00)
[2021-03-04] MEDS ORDERED: ALBUTEROL SULFATE 2.5 MG/3 ML NEBU NEB ONE ×2 (21:15→22:15)
[2021-03-04 21:24] LABS: BASOPHILS # (AUTO) 0.1 K/uL (0.0-8.0); BASOPHILS % (AUTO) 0.8 % (0.0-2.0); EOSINOPHILS # (AUTO) 0.5 K/uL (0.0-0.7); EOSINOPHILS % (AUTO) 4.5 % (0.0-7.0); HEMATOCRIT 44.6 % (31.2-41.9); HEMOGLOBIN 14.1 g/dL (10.9-14.3); LYMPHOCYTES # (AUTO) 3.4 K/uL (20.0-40.0); MEAN CORPUSCULAR HEMOGLOBIN 27.3 uug (24.7-32.8); MEAN CORPUSCULAR HGB CONC 32 g/dL (32.3-35.6); MEAN CORPUSCULAR VOLUME 86.1 fL (75.5-95.3); MONOCYTES # (AUTO) 0.9 K/uL (2.0-10.0); MONOCYTES % (AUTO) 7.7 % (0.0-11.0); NEUTROPHILS # (AUTO) 7.1 K/uL (1.8-8.9); PLATELET COUNT (AUTO) 211 K/uL (179-408); RED BLOOD CELL COUNT(AUTO) 5.18 MIL/uL (3.63-4.92)
[2021-03-04] MEDS ORDERED: ALBUTEROL SULFATE 2.5 MG/3 ML NEBU ONE ×2 (21:26→22:44)
[2021-03-04] MEDS ORDERED: IPRATROPIUM BROMIDE 0.5 MG/2.5 ML NEBU ONE ×2 (21:27→22:44)
[2021-03-04 21:31] LABS: CREATININE 0.7 mg/dL (0.6-1.3); POTASSIUM 3.8 mmol/L (3.5-5.1)
[2021-03-04 21:35] LABS: BILIRUBIN,DIRECT 0.1 mg/dL (0.0-0.2); BILIRUBIN,TOTAL 0.6 mg/dL (0.2-1.0); TOTAL PROTEIN, SERUM 6.4 g/dL (6.4-8.2)
--- NOTE | 2021-03-04 21:41 | NUR ---
Pt taken down for xray
--- NOTE | 2021-03-04 21:55 | NUR ---
Pt came back from xray, stable condition. Bed in lowest position for safety precautions.
--- NOTE | 2021-03-04 21:58 | NUR ---
Lopez blas in [facility] - 03/04/[address] Norton at bedside, MSE in progress.
[2021-03-04] MEDS ORDERED: predniSONE 20 MG TABLET PO ONE (23:00)
[2021-03-04] MEDS ORDERED: PRED50TA PO (23:03)
[2021-03-04] MEDS ORDERED: ONDA4TAB11 PO (23:03)
[2021-03-04] MEDS ORDERED: predniSONE 20 MG TABLET ONE (23:11)
[2021-03-04] MEDS ORDERED: MORPHINE SULFATE 4 MG/1 ML DISP.SYRIN ONE (23:11)
--- NOTE | 2021-03-04 23:21 | NUR ---
Patient discharged to home in stable condition. A/O x4, no SOB or labored breathing. Afebrile. No c/o chest pain/pressure. Pain medications noted to be effective. Written and verbal after care instructions given. Patient verbalizes understanding of instructions. Stressed follow up or return to ER for worsening s/s. Steady gait. Picked up by daughter.
[2021-03-04 23:26] VITALS: BP 210/69
== END 2021-03-04 23:22 | disposition home or self-care (01) ==
LOC: ER 20:36
DX: J45.901 Unspecified asthma with (acute) exacerbation (principal); R10.9 Unspecified abdominal pain; K76.0 Fatty (change of) liver, not elsewhere classified; M79.7 Fibromyalgia; Z87.11 Personal history of peptic ulcer disease; Z88.6 Allergy status to analgesic agent; Z91.040 Latex allergy status; Z88.0 Allergy status to penicillin; Z91.013 Allergy to seafood
CPT/HCPCS: 36415; 71045; 74176; 80048; 80076; 83605; 83690; 85025; 93005; 94640; 94664; 96374; 96375; 96376; 99285; J2270 ×2; J2405; J7512; A4663; J3590

== ENCOUNTER 2021-05-26 18:23 | Inpatient (IN) | payer OTHER ==
[~2021-05-26] VITALS: Ht 157.5 cm; Wt 93.9 kg
[~2021-05-26 18:23] MED LIST changes: +ONDA4TAB11 PO; +PRED50TA PO
[2021-05-26] MEDS ORDERED: predniSONE 20 MG TABLET PO ONE (19:00)
[2021-05-26] MEDS ORDERED: HYDROMORPHONE HCL 2 MG TABLET PO ONE ×3 (19:00→21:00)
[2021-05-26] MEDS ORDERED: ONDANSETRON ODT 4 MG TAB.RAPDIS SL ONE (19:00)
[2021-05-26] MEDS ORDERED: LORAZEPAM 0.5 MG TABLET PO ONE (19:00)
--- NOTE | 2021-05-26 19:19 | NUR ---
Pt accidently pulled on IV, infiltratating line. Will have to restart.
--- NOTE | 2021-05-26 19:20 | NUR ---
Patient placed on nasal cannula 3 LPM to increase O2 saturation that was 91% on room air to 95%.
[2021-05-26 19:24] LABS: MEAN CORPUSCULAR HEMOGLOBIN 27.7 uug (24.7-32.8); MEAN CORPUSCULAR VOLUME 84.2 fL (75.5-95.3); PLATELET COUNT (AUTO) 274 K/uL (179-408)
[2021-05-26] MEDS ORDERED: ONDANSETRON ODT 4 MG TAB.RAPDIS ONE (19:24)
[2021-05-26] MEDS ORDERED: LORAZEPAM 0.5 MG TABLET ONE (19:24)
[2021-05-26] MEDS ORDERED: HYDROMORPHONE HCL 2 MG TABLET ONE ×2 (19:25→21:10)
[2021-05-26] MEDS ORDERED: predniSONE 20 MG TABLET ONE (19:25)
[2021-05-26 19:30] LABS: CREATININE 0.9 mg/dL (0.6-1.3)
[2021-05-26 19:41] LABS: BILIRUBIN,DIRECT 0.1 mg/dL (0.0-0.2); BILIRUBIN,TOTAL 0.5 mg/dL (0.2-1.0); TOTAL PROTEIN, SERUM 7.4 g/dL (6.4-8.2)
[2021-05-26] MEDS ORDERED: IOHEXOL 350 100 ML INFUS..BTL ONE (20:09)
[2021-05-26] MEDS ORDERED: IV NORMAL SALINE 250 ML IV ONE (20:09)
[2021-05-26] MEDS ORDERED: SWABABLE VALVE TRANSFER SET EA MC ONE (20:09)
--- NOTE | 2021-05-26 20:15 | NUR ---
Patient taken out for CT angiogram by parking technician.
--- NOTE | 2021-05-26 20:48 | NUR ---
Patient A&Ox4. Patient requested to use restroom. Patient given bedside commode d/t current isolation precautions. Offered assistance to patient in using commode. Patient stated she would like to use it by herself and wishes to have privacy in using the commode. Patient given privacy, and will come back to check on patient when she is done.
--- NOTE | 2021-05-26 20:50 | NUR ---
Patient c/o of lower back pain, stating that the previous dose of dilaudid do not help her much with her pain. MD Jacob Kam made aware. Pending new orders.
[2021-05-26 21:20] VITALS: BP 127/80
--- NOTE | 2021-05-26 21:32 | NUR ---
Epic panel call placed, pending call back from hospitalist Kirsten.
--- NOTE | 2021-05-26 21:40 | NUR ---
MD Curtis connected to MD Jacob Kam.
--- NOTE | 2021-05-26 21:48 | NUR ---
Patient taken out for CT scan by radiology special procedure tech.
--- NOTE | 2021-05-26 21:57 | NUR ---
PHONG Pérez states patient will be assigned to telemetry room 320.
--- NOTE | 2021-05-26 22:26 | NUR ---
Report given PHONG December.
[2021-05-26] MEDS ORDERED: Z GUARD REMEDY PASTE 57 GM TUBE TOP PRN (22:30)
[2021-05-26] MEDS ORDERED: MAGNESIUM HYDROXIDE 30 ML LIQUID UDC PO PRN (22:30)
[2021-05-26] MEDS ORDERED: ZOLPIDEM 5 MG TABLET PO PRN (22:30)
[2021-05-26] MEDS ORDERED: HYDROCODONE/APAP 5-325MG TABLET PO PRN (22:30)
--- NOTE | 2021-05-26 22:40 | NUR ---
Admitted patient to [facility] from ER, report given by PHONG Ambriz. Patient arrived via stretcher. Able to walk and verbalize needs. Skin is intact. Noted with heplock G20 to the right forearm. Patient reported pain to the lower back, Morphine 4mg given as ordered. Less than 2hrs of administration, patient is still in a lot of pain, stating pain is excruciating, facial grimacing and crying noted. Informed Dr Hu, ordered Dilaudid, patient stated it was effective. Dr Curtis informed of admission, med recon done. Oriented patient to her room. She is on monitoring for possible COVID19 exposure. Kept call light within reach. Will continue to monitor.
--- NOTE | 2021-05-26 22:40 | NUR ---
Pt. admitted to med-surg 320, under care of Dr. Curtis Belongs List completed
[2021-05-27] MEDS: MORPHINE SULFATE 2 MG/1 ML DISP.SYRIN IV PRN ×2 (00:04→09:35)
[2021-05-27] MEDS: HYDROMORPHONE 1 MG/1 ML DISP.SYRIN IV PRN ×6 (02:06→22:00)
[2021-05-27 04:30] VITALS: BP 108/63
[2021-05-27] MEDS: PANTOPRAZOLE SODIUM 40 MG TABLET.DR PO SCH (05:28)
[2021-05-27 06:25] LABS: HEMATOCRIT 44.1 % (31.2-41.9); MEAN CORPUSCULAR HEMOGLOBIN 27.5 uug (24.7-32.8); MEAN CORPUSCULAR VOLUME 84.1 fL (75.5-95.3); PLATELET COUNT (AUTO) 280 K/uL (179-408)
[2021-05-27 06:38] LABS: POTASSIUM 4.4 mmol/L (3.5-5.1)
[2021-05-27 06:45] LABS: THYROID STIMULATING HORMONE 0.347 mIU/mL (0.358-3.740)
--- NOTE | 2021-05-27 07:04 | NUR ---
MD order MRI TSPINE W/O CONTRAST, checklist done as ordered. Patient agreed to the plan. Consent signed. Still noted with 10/10 pain level. Dilaudid given towards the end of the shift, per patient it is effective. Patient is requesting Ativan prior to MRI due to anxiety. Endorsed to the next shift.
[2021-05-27 12:00] VITALS: BP 125/67
[2021-05-27] MEDS ORDERED: LORAZEPAM 0.5 MG TABLET PO ONE (15:30)
[2021-05-27 16:00] VITALS: BP 120/80
[2021-05-27] MEDS ORDERED: ZOLPIDEM 5 MG TABLET PO PRN (18:30)
[2021-05-27] MEDS ORDERED: CETIRIZINE HCL 10 MG TABLET PO PRN (18:30)
[2021-05-27] MEDS ORDERED: ONDANSETRON HCL 4 MG TABLET PO PRN (18:30)
--- NOTE | 2021-05-27 18:47 | NUR ---
Patient S/P MRI T spine without contrast. Awaiting result. Patient continue pain management, tolerated well. Patient Dilaudid PRN given. Patient awaiting PCR result. not in distress. will continue monitor
[2021-05-27 20:15] VITALS: BP 102/66
[2021-05-27] MEDS: ATORVASTATIN 20 MG TABLET PO SCH (20:37)
[2021-05-27] MEDS: GABAPENTIN 300 MG CAPSULE PO SCH (20:38)
[2021-05-27] MEDS ORDERED: ALBUTEROL SULFATE 8 GM HFA.AER.AD INH SCH (21:00)
[2021-05-28] MEDS: HYDROMORPHONE 1 MG/1 ML DISP.SYRIN IV PRN ×6 (04:13→23:26)
[2021-05-28 04:31] VITALS: BP 129/84
[2021-05-28] MEDS: PANTOPRAZOLE SODIUM 40 MG TABLET.DR PO SCH (06:03)
--- NOTE | 2021-05-28 06:36 | NUR ---
PATIENT ASLEEP IN BED. SLEPT WELL. NO S/S OF PAIN OR DISCOMFORT. NO RESP. DISTRESS NOTED. VS WNL. CALL LIGHT IN REACH. ALL NEEDS ATTENDED. WILL CONTINUE TO MONITOR.
[2021-05-28 06:53] LABS: HEMATOCRIT 44.2 % (31.2-41.9); MEAN CORPUSCULAR HEMOGLOBIN 27.8 uug (24.7-32.8); MEAN CORPUSCULAR VOLUME 85.4 fL (75.5-95.3); PLATELET COUNT (AUTO) 228 K/uL (179-408)
[2021-05-28 07:24] LABS: CREATININE 0.8 mg/dL (0.6-1.3); PHOSPHOROUS 3.8 mg/dL (2.5-4.9); POTASSIUM 3.6 mmol/L (3.5-5.1)
[2021-05-28] MEDS: ESCITALOPRAM OXALATE 10 MG TABLET PO SCH (08:07)
[2021-05-28] MEDS: METFORMIN HCL 500 MG TABLET PO SCH ×2 (08:07→17:06)
[2021-05-28] MEDS: MONTELUKAST SODIUM 10 MG TABLET PO SCH (08:07)
[2021-05-28] MEDS ORDERED: THEOPHYLLINE ANHYDROUS 400 MG PO SCH (09:00)
--- NOTE | 2021-05-28 09:22 | NUR ---
Received patient in bed, alert and oriented x 4, call light within reach. All due meds given per MD order. All needs met promptly. Patient is pleasant and cooperative upon assessment. Patient on 3LPM oxygen via nasal cannula saturating at 92% . When asked if she needs it she said "YES". Will continue to monitor.
[2021-05-28] MEDS: ONDANSETRON 4 MG/2 ML VIAL IV PRN (12:00)
--- NOTE | 2021-05-28 13:10 | NUR ---
Patient is still in pain despite Dilaudid PRN given patient is also asking for a muscle relaxant. Notified Dr Curtis and awaiting for response. Instruct patient to stay on the bed, repositioning rendered and patient ask for couple of pillows and provide a quiet environment.
[2021-05-28] MEDS ORDERED: KETOROLAC TROMETHAMINE 30 MG INJ IVP SCH (14:30)
[2021-05-28] MEDS ORDERED: CYCLOBENZAPRINE HCL 10 MG TABLET PO PRN (14:30)
[2021-05-28] MEDS ORDERED: HYDROCODONE/APAP 10-325 MG TABLET PO PRN (14:30)
[2021-05-28] MEDS: LIDOCAINE 5% PATCH TD SCH (15:27)
[2021-05-28 15:41] VITALS: BP 142/74
[2021-05-28] MEDS: THEOPHYLLINE 400 MG PO SCH (15:43)
[2021-05-28] MEDS: GABAPENTIN 300 MG CAPSULE PO SCH (20:12)
[2021-05-28] MEDS: ATORVASTATIN 20 MG TABLET PO SCH (20:12)
--- NOTE | 2021-05-28 20:12 | NUR ---
Patient was moaning in pain.Offered [place] but patient refused stated it wont work for her.Patient requesting if she could have Dilaudid every 3 hrs instead of every 4 hrs. notified with new order received noted and carried out.Dilaudid IVP given.No s/s of distress noted .02 at 2LPM via DE.Call light with in reach.Will continue to monitor.
[2021-05-28 20:17] VITALS: BP 110/76
[2021-05-28] MEDS: ACETAMINOPHEN 325 MG TABLET PO PRN (22:35)
[2021-05-29] MEDS: HYDROMORPHONE 1 MG/1 ML DISP.SYRIN IV PRN ×4 (02:30→12:04)
[2021-05-29 04:35] VITALS: BP 108/65
[2021-05-29] MEDS: PANTOPRAZOLE SODIUM 40 MG TABLET.DR PO SCH (06:07)
--- NOTE | 2021-05-29 07:20 | NUR ---
Patient resting in bed. AOx4. On 2L O2 via NC. No signs of acute distress. With right FA #20 IV access, patent and intact. Call light within reach. Bed alarm on. Will continue to monitor.
[2021-05-29 07:24] LABS: HEMATOCRIT 44.4 % (31.2-41.9); MEAN CORPUSCULAR HEMOGLOBIN 27.9 uug (24.7-32.8); MEAN CORPUSCULAR VOLUME 85.5 fL (75.5-95.3); PLATELET COUNT (AUTO) 243 K/uL (179-408)
[2021-05-29] MEDS: LIDOCAINE 5% PATCH TD SCH (08:02)
[2021-05-29] MEDS: METFORMIN HCL 500 MG TABLET PO SCH ×2 (08:02→17:07)
[2021-05-29] MEDS: MONTELUKAST SODIUM 10 MG TABLET PO SCH (08:02)
[2021-05-29] MEDS: ESCITALOPRAM OXALATE 10 MG TABLET PO SCH (08:02)
[2021-05-29] MEDS: THEOPHYLLINE 400 MG PO SCH (08:02)
[2021-05-29 08:35] LABS: CREATININE 0.8 mg/dL (0.6-1.3); POTASSIUM 3.7 mmol/L (3.5-5.1)
[2021-05-29 11:24] VITALS: BP 111/72
[2021-05-29] MEDS: IPRATROPIUM BROMIDE 0.5 MG/2.5 ML NEBU NEB SCH ×2 (13:30→19:58)
[2021-05-29] MEDS: ALBUTEROL SULFATE 2.5 MG/ 0.5 ML NEBU NEB SCH ×2 (13:30→19:58)
[2021-05-29] MEDS: ONDANSETRON 4 MG/2 ML VIAL IV PRN (13:35)
[2021-05-29] MEDS: HYDROMORPHONE 2 MG/1 ML DISP.SYRIN IV PRN ×3 (15:39→21:42)
[2021-05-29 15:58] VITALS: BP 135/82
--- NOTE | 2021-05-29 16:00 | NUR ---
UNAWARE OF ORDERED TREATMENT. WILL ENDORSE TO MIX MAKER RT
[2021-05-29] MEDS: ACETAMINOPHEN 325 MG TABLET PO PRN (16:51)
--- NOTE | 2021-05-29 18:50 | NUR ---
Patient resting in bed. AOx4. On 2L O2 via NC. No signs of acute distress. Patient complained of pain. Dilaudid IV PRN given. Patient states relief of pain after receiving Dilaudid but pain would return after an hour. Instructed patient to stay in bed and use pillows in back to help with pain. Compliant with medications and care. Safety measures provided. Needs anticipated and met. Will endorse to incoming shift for continuity of care.
[2021-05-29] MEDS: GABAPENTIN 300 MG CAPSULE PO SCH (20:16)
[2021-05-29] MEDS: ATORVASTATIN 20 MG TABLET PO SCH (20:16)
[2021-05-29 20:40] VITALS: BP 143/82
--- NOTE | 2021-05-29 23:00 | NUR ---
Received pt sitting up in bed. C/o of back pain. AOx4. On 2L O2 via NC. No signs of acute distress. With right FA #20 IV access, infiltrated. Established new IV LAC 22g, patent and intact. Administered Dilaudid PRN for back pain, per pt request. All due medications administered and tolerated well. VSS. Call light within reach. Bed alarm on. Will continue to monitor.
[2021-05-30] MEDS: IPRATROPIUM BROMIDE 0.5 MG/2.5 ML NEBU NEB SCH ×4 (00:59→20:04)
[2021-05-30] MEDS: ALBUTEROL SULFATE 2.5 MG/ 0.5 ML NEBU NEB SCH ×4 (00:59→20:05)
[2021-05-30] MEDS: HYDROMORPHONE 2 MG/1 ML DISP.SYRIN IV PRN ×7 (01:06→20:45)
[2021-05-30 04:45] VITALS: BP 137/93
--- NOTE | 2021-05-30 05:02 | NUR ---
Administered Dilaudid Q3H PRN @ 0106 and 0424, pt c/o back pain, moaning, crying and irritable. Explained to pt there are other pain medications available and expressed only wants Dilaudid, administered per pt request. Resting in bed comfortably. Needs attended to in a timely manner. Will continue to monitor.
[2021-05-30 06:21] LABS: HEMATOCRIT 44.9 % (31.2-41.9); MEAN CORPUSCULAR HEMOGLOBIN 27.6 uug (24.7-32.8); MEAN CORPUSCULAR VOLUME 85.3 fL (75.5-95.3); PLATELET COUNT (AUTO) 259 K/uL (179-408)
[2021-05-30] MEDS: PANTOPRAZOLE SODIUM 40 MG TABLET.DR PO SCH (06:30)
[2021-05-30 06:41] LABS: CREATININE 0.8 mg/dL (0.6-1.3); PHOSPHOROUS 4.3 mg/dL (2.5-4.9); POTASSIUM 3.9 mmol/L (3.5-5.1)
[2021-05-30] MEDS: METFORMIN HCL 500 MG TABLET PO SCH ×2 (08:06→17:04)
[2021-05-30] MEDS: MONTELUKAST SODIUM 10 MG TABLET PO SCH (08:06)
[2021-05-30] MEDS: ESCITALOPRAM OXALATE 10 MG TABLET PO SCH (08:06)
[2021-05-30] MEDS: THEOPHYLLINE 400 MG PO SCH (08:06)
[2021-05-30] MEDS: LIDOCAINE 5% PATCH TD SCH (08:07)
[2021-05-30 11:02] VITALS: BP 143/86
[2021-05-30 15:14] VITALS: BP 129/83
[2021-05-30 15:30] VITALS: BP 129/83
--- NOTE | 2021-05-30 15:35 | NUR ---
patient is alert, oriented x4, no sob, reps even nonlabored, skin warm an dry to touch, pain is being managed with pain medication as ordered,
[2021-05-30 20:00] VITALS: BP 115/76
--- NOTE | 2021-05-30 20:30 | NUR ---
Pt a/ox4, c/o back pain, pain meds given as schedule and c/o nausea given zofran. Pt refused 2100 meds. pt given iv pain meds every 3 hrs through the night for back pain. pt rest some last night. report given to day nurse.
[2021-05-30] MEDS: GABAPENTIN 300 MG CAPSULE PO SCH (21:00)
[2021-05-30] MEDS: ATORVASTATIN 20 MG TABLET PO SCH (21:00)
[2021-05-30] MEDS: ONDANSETRON 4 MG/2 ML VIAL IV PRN (21:21)
[2021-05-31] MEDS: HYDROMORPHONE 2 MG/1 ML DISP.SYRIN IV PRN ×8 (00:28→23:37)
[2021-05-31] MEDS: ACETAMINOPHEN 325 MG TABLET PO PRN (01:01)
[2021-05-31] MEDS: ALBUTEROL SULFATE 2.5 MG/ 0.5 ML NEBU NEB SCH ×4 (01:25→21:43)
[2021-05-31] MEDS: IPRATROPIUM BROMIDE 0.5 MG/2.5 ML NEBU NEB SCH ×4 (01:25→21:40)
[2021-05-31 04:00] VITALS: BP 113/65
[2021-05-31] MEDS: PANTOPRAZOLE SODIUM 40 MG TABLET.DR PO SCH (07:00)
[2021-05-31 07:17] LABS: HEMATOCRIT 42.5 % (31.2-41.9); MEAN CORPUSCULAR HEMOGLOBIN 27.3 uug (24.7-32.8); MEAN CORPUSCULAR VOLUME 84.2 fL (75.5-95.3); PLATELET COUNT (AUTO) 225 K/uL (179-408)
[2021-05-31 07:28] LABS: CREATININE 0.9 mg/dL (0.6-1.3); PHOSPHOROUS 4.1 mg/dL (2.5-4.9); POTASSIUM 3.7 mmol/L (3.5-5.1)
[2021-05-31] MEDS: METFORMIN HCL 500 MG TABLET PO SCH ×2 (08:13→18:00)
[2021-05-31] MEDS: MONTELUKAST SODIUM 10 MG TABLET PO SCH (08:13)
[2021-05-31] MEDS: ESCITALOPRAM OXALATE 10 MG TABLET PO SCH (08:13)
[2021-05-31] MEDS: THEOPHYLLINE 400 MG PO SCH (08:14)
[2021-05-31] MEDS: LIDOCAINE 5% PATCH TD SCH (08:14)
[2021-05-31 11:17] VITALS: BP 121/74
[2021-05-31 15:09] VITALS: BP 138/86
--- NOTE | 2021-05-31 19:00 | NUR ---
recd pt in bed ,alert oriented x4,needs attended to,due meds given for pain management, ambulatory, continent og bowel and bladder,heplock on right hand patent and intact.slept intermittently.
[2021-05-31 20:00] VITALS: BP 113/54
[2021-05-31] MEDS: ATORVASTATIN 20 MG TABLET PO SCH (21:21)
[2021-05-31] MEDS: GABAPENTIN 300 MG CAPSULE PO SCH (21:22)
[2021-05-31] MEDS: ALBUTEROL SULFATE 2.5 MG/3 ML NEBU NEB PRN ×2 (21:40→21:41)
[2021-06-01] MEDS: IPRATROPIUM BROMIDE 0.5 MG/2.5 ML NEBU NEB SCH ×4 (01:30→19:07)
[2021-06-01] MEDS: ALBUTEROL SULFATE 2.5 MG/ 0.5 ML NEBU NEB SCH ×4 (01:30→19:07)
[2021-06-01] MEDS: HYDROMORPHONE 2 MG/1 ML DISP.SYRIN IV PRN ×4 (02:36→20:00)
[2021-06-01 04:00] VITALS: BP 102/71
[2021-06-01] MEDS: PANTOPRAZOLE SODIUM 40 MG TABLET.DR PO SCH (06:22)
[2021-06-01 06:39] LABS: HEMATOCRIT 40.4 % (31.2-41.9); MEAN CORPUSCULAR HEMOGLOBIN 27.7 uug (24.7-32.8); MEAN CORPUSCULAR VOLUME 84.7 fL (75.5-95.3); PLATELET COUNT (AUTO) 225 K/uL (179-408)
[2021-06-01 06:55] LABS: CREATININE 0.9 mg/dL (0.6-1.3); PHOSPHOROUS 3.9 mg/dL (2.5-4.9); POTASSIUM 4.4 mmol/L (3.5-5.1)
[2021-06-01] MEDS: METFORMIN HCL 500 MG TABLET PO SCH ×2 (08:59→17:06)
[2021-06-01] MEDS: LIDOCAINE 5% PATCH TD SCH (09:00)
[2021-06-01] MEDS: MONTELUKAST SODIUM 10 MG TABLET PO SCH (09:26)
[2021-06-01] MEDS: ESCITALOPRAM OXALATE 10 MG TABLET PO SCH (09:26)
[2021-06-01 11:24] VITALS: BP 127/77
[2021-06-01] MEDS: ONDANSETRON 4 MG/2 ML VIAL IV PRN (11:36)
[2021-06-01 14:56] VITALS: BP 101/51
[2021-06-01] MEDS: OXYCODONE HCL 5 MG TABLET PO PRN (16:23)
[2021-06-01] MEDS ORDERED: HYDROCODONE/APAP 5-325MG TABLET PO PRN (18:30)
[2021-06-01 20:09] VITALS: BP 103/73
[2021-06-01] MEDS: ATORVASTATIN 20 MG TABLET PO SCH (20:23)
[2021-06-01] MEDS: GABAPENTIN 300 MG CAPSULE PO SCH (20:31)
[2021-06-02] MEDS: IPRATROPIUM BROMIDE 0.5 MG/2.5 ML NEBU NEB SCH ×3 (01:30→13:55)
[2021-06-02] MEDS: ALBUTEROL SULFATE 2.5 MG/ 0.5 ML NEBU NEB SCH ×3 (01:30→13:55)
[2021-06-02] MEDS: HYDROMORPHONE 2 MG/1 ML DISP.SYRIN IV PRN ×3 (02:01→16:31)
[2021-06-02 04:25] VITALS: BP 109/60
--- NOTE | 2021-06-02 04:30 | NUR ---
Patient discharged in satisfactory condition. Educated on picking up her medications and following up with her outpatient appointments. All information was given to her and she expressed understanding.
[2021-06-02] MEDS: PANTOPRAZOLE SODIUM 40 MG TABLET.DR PO SCH (06:13)
--- NOTE | 2021-06-02 07:30 | NUR ---
Patient received in bed with eyes closed, but easily arousable. 2L O2 via NC as ordered. Right hand 22G patent with no redness or swelling noted. Patient has back brace at bedside and educated on its use. Call light and personal belongings within easy reach. Will continue to monitor.
[2021-06-02] MEDS: METFORMIN HCL 500 MG TABLET PO SCH (08:30)
[2021-06-02] MEDS: MONTELUKAST SODIUM 10 MG TABLET PO SCH (08:31)
[2021-06-02] MEDS: ESCITALOPRAM OXALATE 10 MG TABLET PO SCH (08:31)
[2021-06-02] MEDS: LIDOCAINE 5% PATCH TD SCH (08:31)
[2021-06-02] MEDS ORDERED: THEOPHYLLINE 400 MG PO SCH (09:00)
[2021-06-02 11:44] VITALS: BP 123/58
[2021-06-02] MEDS: OXYCODONE HCL 5 MG TABLET PO PRN (12:26)
[2021-06-02] MEDS ORDERED: IBUP-1955 PO (14:53)
[2021-06-02] MEDS ORDERED: OXYC5TAB3 PO (14:53)
[2021-06-02] MEDS ORDERED: LIDO30AD10 TD (14:53)
[2021-06-02] MEDS ORDERED: AZIT500T2 PO (14:53)
[2021-06-02 16:00] VITALS: BP 114/78
== END 2021-06-02 17:00 | disposition home health service (06) | DRG 347 ==
LOC: ER 18:24 → TELE3 22:23 → MEDSURG3 22:40
PROVIDERS: ADMIT Student in an Organized Health Care Education/Training Program; ATTEND Registered Nurse
DX: M48.54XA Collapsed vertebra, not elsewhere classified, thoracic region, initial encounter for fracture (principal); E27.8 Other specified disorders of adrenal gland; J15.9 Unspecified bacterial pneumonia; E11.36 Type 2 diabetes mellitus with diabetic cataract; F29 Unspecified psychosis not due to a substance or known physiological condition; K76.0 Fatty (change of) liver, not elsewhere classified; D72.829 Elevated white blood cell count, unspecified; E66.9 Obesity, unspecified; G89.4 Chronic pain syndrome; M79.7 Fibromyalgia; J45.909 Unspecified asthma, uncomplicated; E03.9 Hypothyroidism, unspecified; E78.5 Hyperlipidemia, unspecified; Z79.84 Long term (current) use of oral hypoglycemic drugs; Z87.891 Personal history of nicotine dependence; Z88.0 Allergy status to penicillin; Z91.013 Allergy to seafood; J98.11 Atelectasis; Z79.891 Long term (current) use of opiate analgesic; N39.0 Urinary tract infection, site not specified; M85.88 Other specified disorders of bone density and structure, other site; Z79.52 Long term (current) use of systemic steroids; Z20.822 Contact with and (suspected) exposure to COVID-19
CPT/HCPCS: 36415; 70030-TC; 71045; 71275; 84100; 84443; 85025; 87040; 87400; 93005; 94640; 97161; A4663; A6209; G0378; J1170; J2270; J2405; J3590; J7050; J7512; Q0162; Q9967; U0003

== ENCOUNTER 2021-06-07 17:20 | Emergency (ER) | payer OTHER ==
[~2021-06-07] VITALS: Ht 157.5 cm; Wt 904.0 kg
[~2021-06-07 17:20] MED LIST changes: +AZIT500T2 PO; +IBUP-1955 PO; +LIDO30AD10 TD; +OXYC5TAB3 PO; -PRED20TA PO; -PRED50TA PO; -levoFLOXacin PO
[2021-06-07 18:00] LABS: *BILIRUBIN,URIN NEGATIVE (NEGATIVE); *COLOR,URINE YELLOW (YELLOW); *KETONES,URINE 3+ (NEGATIVE); *UROBILINOGEN,URINE 0.2 E.U./dl (NORMAL); LEUKOCYTE ESTERASE ,URINE TRACE (NEGATIVE); NITRITE, URINE POSITIVE (NEGATIVE); PH,URINE 6.5 (5.0-8.0); UGLUCOSE NEGATIVE (NEGATIVE)
[2021-06-07 18:07] LABS: *BLOOD, URINE TRACE (NEGATIVE)
[2021-06-07 18:09] LABS: *CLARITY,URINE HAZY (CLEAR); BACTERIA,URINE MANY /HPF (NONE SEEN); RBC,URINE 0-3 /HPF (0-3); SQUAMOUS EPITHELIAL CELL,UR MODERATE /HPF (NONE SEEN)
[2021-06-07 18:10] LABS: *AMPHETAMINE, URINE NEGATIVE (NEGATIVE); *CANNABINOID, URINE NEGATIVE (NEGATIVE); *COCCAINE, URINE NEGATIVE (NEGATIVE); *OPIATE, URINE POSITIVE (NEGATIVE); *PHENCYCLIDINE SCREEN,URINE NEGATIVE (NEGATIVE)
[2021-06-07 18:16] LABS: HEMATOCRIT 44.9 % (31.2-41.9); MEAN CORPUSCULAR HEMOGLOBIN 27.6 uug (24.7-32.8); PLATELET COUNT (AUTO) 396 K/uL (179-408)
[2021-06-07 18:26] LABS: CARBON DIOXIDE 29 mmol/L (21-32); CHLORIDE 101 mmol/L (98-107); CREATININE 0.7 mg/dL (0.6-1.3); GLUCOSE 104 mg/dL (74-106); POTASSIUM 3.1 mmol/L (3.5-5.1); UREA NITROGEN, BLOOD 8 mg/dL (7-18)
[2021-06-07 18:28] LABS: ETHANOL < 3 MG/DL (0-0)
[2021-06-07] MEDS ORDERED: CEFTRIAXONE 1 G in IV DEXTROSE 5% 50 ML IV ONE (18:30)
[2021-06-07 18:33] LABS: ALANINE AMINOTRANSFERASE 39 U/L (14-59); ALKALINE PHOSPHATASE 92 U/L (50-136); ASPARTATE AMINOTRANSFERASE 23 U/L (15-37); BILIRUBIN,DIRECT 0.2 mg/dL (0.0-0.2); BILIRUBIN,TOTAL 0.5 mg/dL (0.2-1.0); TOTAL PROTEIN, SERUM 7.2 g/dL (6.4-8.2)
[2021-06-07 18:35] LABS: ACETAMINOPHEN < 2.0 ug/mL (10-30)
[2021-06-07 18:40] LABS: THYROID STIMULATING HORMONE 1.379 mIU/mL (0.358-3.740)
[2021-06-07 18:41] LABS: ABG HCO3 27.8 mmol/L; ABG PCO2 39.2 mmHg (35.0-45.0); ABG PH 7.469 (7.350-7.450); ABG PO2 62.2 mmHg (75.0-100.0); ABG SITE LEFT RADIAL; ABG TOTAL HEMOGLOBIN 14.9 G/dL (12.0-16.0); COHb 1.7 % (0.5-1.5); MetHb 0.1 % (0.0-1.5); O2Hb 90.5 % (94.0-97.0); VENT MODE room air
[2021-06-07] MEDS ORDERED: POTASSIUM CHLORIDE 20 MEQ TAB.PRT.SR PO ONE (19:00)
[2021-06-07] MEDS ORDERED: levoFLOXacin 750 MG/D5W 150 ML PIGGYBACK IV ONE (19:00)
[2021-06-07] MEDS ORDERED: VANCOMYCIN IV 1,500 MG in IV DEXTROSE 5% 250 ML IV ONE (19:00)
[2021-06-07 19:23] LABS: CREATININE 0.8 mg/dL (0.6-1.3); POTASSIUM 3.1 mmol/L (3.5-5.1)
[2021-06-07 19:35] LABS: BILIRUBIN,TOTAL 0.5 mg/dL (0.2-1.0); TOTAL PROTEIN, SERUM 7.3 g/dL (6.4-8.2)
[2021-06-07] MEDS ORDERED: POTASSIUM CHLORIDE 20 MEQ TAB.PRT.SR ONE (19:47)
[2021-06-07] MEDS ORDERED: CEFTRIAXONE /D5W 50ML IVPB **ER PYXIS IV ONE (19:48)
[2021-06-07] MEDS ORDERED: HYDROMORPHONE 1 MG/1 ML DISP.SYRIN IV ONE ×2 (20:00→23:00)
[2021-06-07] MEDS ORDERED: FUROSEMIDE 40 MG/4 ML VIAL IV ONE (20:00)
[2021-06-07] MEDS ORDERED: FUROSEMIDE 40 MG/4 ML VIAL ONE (20:16)
[2021-06-07] MEDS ORDERED: levoFLOXacin 750MG/D5W 150 ML IV ONE (20:16)
[2021-06-07] MEDS ORDERED: HYDROMORPHONE 1 MG/1 ML DISP.SYRIN ONE ×2 (20:16→23:26)
[2021-06-07] MEDS ORDERED: IV NORMAL SALINE 250 ML IV ONE (20:45)
[2021-06-07] MEDS ORDERED: IOHEXOL 350 100 ML INFUS..BTL ONE (20:45)
[2021-06-07] MEDS ORDERED: SWABABLE VALVE TRANSFER SET EA MC ONE (20:45)
--- NOTE | 2021-06-07 20:52 | NUR ---
Patient being taken out for CT scan.
[2021-06-07] MEDS ORDERED: INSULIN REGULAR, HUMAN 300 UNITS/3 ML VIAL SQ PRN (21:45)
[2021-06-07] MEDS ORDERED: ACETAMINOPHEN 325 MG TABLET PO PRN (21:45)
[2021-06-07] MEDS ORDERED: INSULIN REGULAR, HUMAN 300 UNIT/3 ML VIAL SQ PRN (21:45)
[2021-06-07] MEDS ORDERED: ONDANSETRON 4 MG/2 ML VIAL IV PRN (21:45)
[2021-06-07] MEDS ORDERED: levoFLOXacin 500 MG/D5W 500 MG in PREMIXED 1 EACH IV SCH (21:45)
[2021-06-07] MEDS ORDERED: IBUPROFEN 600 MG TABLET PO PRN (21:45)
[2021-06-07] MEDS ORDERED: Z GUARD REMEDY PASTE 57 GM TUBE TOP PRN (21:45)
[2021-06-07] MEDS ORDERED: MAGNESIUM HYDROXIDE 30 ML LIQUID UDC PO PRN (21:45)
[2021-06-07] MEDS ORDERED: ONDANSETRON HCL 4 MG TABLET PO PRN (21:45)
[2021-06-07] MEDS ORDERED: DEXTROSE 50% 50 ML DISP.SYRIN IV PRN (21:45)
[2021-06-07] MEDS ORDERED: ENOXAPARIN SODIUM 40 MG/0.4 ML DISP.SYRIN SQ SCH (21:45)
[2021-06-07] MEDS ORDERED: VANCOMYCIN IV 200 ML ONE (23:00)
[2021-06-07] MEDS ORDERED: VANCOMYCIN HCL 500 MG VIAL ONE (23:02)
--- NOTE | 2021-06-08 00:41 | NUR ---
Received transfer info [facility] phone# for report: [phone] case packer Yina [phone]
--- NOTE | 2021-06-08 00:56 | NUR ---
[facility] called, ETA 30 minutes.
--- NOTE | 2021-06-08 01:03 | NUR ---
Report given to PHONG Glover.
--- NOTE | 2021-06-08 01:19 | NUR ---
[facility] unit BLS unit 305 arrived to transport patient and take report.
--- NOTE | 2021-06-08 01:22 | NUR ---
Patient c/o patient, requesting more pain medication. MD Cameron made aware.
[2021-06-08] MEDS ORDERED: MORPHINE SULFATE 2 MG/1 ML DISP.SYRIN IV ONE (01:30)
[2021-06-08] MEDS ORDERED: MORPHINE SULFATE 2 MG/1 ML DISP.SYRIN ONE (01:37)
--- NOTE | 2021-06-08 01:42 | NUR ---
Patient Transfers to outside Facility Physician: MD Zhao Location: [facility] room 622 Addendum: 06/08/21 at 0146 by FLORIDALMA Patient transported with rest of vancomyocin drip clamped. Addendum: 06/08/21 at 0149 by FLORIDALMA [facility] made aware to finish 1.5g vanco drip.
[2021-06-08] MEDS ORDERED: BLOOD SUGAR DIAGNOSTIC 1 EACH STRIP VI SCH (07:30)
[2021-06-08] MEDS ORDERED: LIDOCAINE 5% PATCH TD SCH (09:00)
[2021-06-08] MEDS ORDERED: ALBUTEROL SULFATE 8 GM HFA.AER.AD INH SCH (09:00)
[2021-06-08] MEDS ORDERED: Medication Not On Formulary EA (Escitalopram Oxalate (Lexapro) 20 MG) PO SCH (09:00)
[2021-06-08] MEDS ORDERED: CETIRIZINE HCL 10 MG TABLET PO SCH (09:00)
[2021-06-08] MEDS ORDERED: MONTELUKAST SODIUM 10 MG TABLET PO SCH (09:00)
[2021-06-08] MEDS ORDERED: THEOPHYLLINE ANHYDROUS 400 MG PO SCH (09:00)
[2021-06-08] MEDS ORDERED: ATORVASTATIN 20 MG TABLET PO SCH (21:00)
[2021-06-08] MEDS ORDERED: GABAPENTIN 300 MG CAPSULE PO SCH (21:00)
== END 2021-06-08 01:42 | disposition short-term general hospital (02) ==
LOC: ER 17:21
DX: J18.9 Pneumonia, unspecified organism (principal); J96.01 Acute respiratory failure with hypoxia; E66.01 Morbid (severe) obesity due to excess calories; R79.1 Abnormal coagulation profile; F11.20 Opioid dependence, uncomplicated; R00.0 Tachycardia, unspecified; N39.0 Urinary tract infection, site not specified; E87.6 Hypokalemia; Z20.822 Contact with and (suspected) exposure to COVID-19; J45.909 Unspecified asthma, uncomplicated; Z88.6 Allergy status to analgesic agent; Z91.040 Latex allergy status; Z88.0 Allergy status to penicillin; Z91.013 Allergy to seafood; F17.290 Nicotine dependence, other tobacco product, uncomplicated
CPT/HCPCS: 36415; 36600; 71045; 71275; 80048; 80053; 80076; 80299; 80307; 80320; 81001; 82550; 82728; 83605; 83615; 83880; 84145; 84443; 84484; 85025; 85379; 85385; 85730; 86140; 87040 ×2; 87077; 87086; 87186; 87426; 93005; 96365; 96366 ×2; 96367 ×2; 96375; 96376; 99291; 99406; J0696; J1170 ×2; J1940; J1956; J2270; J3370 ×2; Q9967; U0003; 70030-TC; A4663; G0480; J7050

== ENCOUNTER 2021-09-02 12:33 | Emergency (ER) | payer OTHER ==
[~2021-09-02] VITALS: Ht 157.5 cm; Wt 89.8 kg
--- NOTE | 2021-09-02 12:44 | NUR ---
pt says that has ct with IV contrast before, and had no problem with it.
[2021-09-02] MEDS ORDERED: MORPHINE SULFATE 4 MG/1 ML DISP.SYRIN IV ONE (13:00)
[2021-09-02] MEDS ORDERED: SWABABLE VALVE TRANSFER SET EA MC ONE (13:09)
[2021-09-02] MEDS ORDERED: IOHEXOL 300MG/ML 100 ML INFUS..BTL ONE (13:10)
[2021-09-02] MEDS ORDERED: IV NORMAL SALINE 250 ML IV ONE (13:10)
[2021-09-02] MEDS ORDERED: MORPHINE SULFATE 4 MG/1 ML DISP.SYRIN ONE (13:17)
[2021-09-02] MEDS ORDERED: ONDANSETRON 4 MG/2 ML VIAL ONE (13:19)
--- NOTE | 2021-09-02 13:24 | NUR ---
pt requsted the ekg be done after the pain management
[2021-09-02 13:25] LABS: CREATININE 0.9 mg/dL (0.6-1.3); HEMATOCRIT 43.4 % (31.2-41.9); MEAN CORPUSCULAR HEMOGLOBIN 27.3 uug (24.7-32.8); MEAN CORPUSCULAR VOLUME 84.9 fL (75.5-95.3); PLATELET COUNT (AUTO) 276 K/uL (179-408)
[2021-09-02 13:30] LABS: BILIRUBIN,TOTAL 0.3 mg/dL (0.2-1.0); TOTAL PROTEIN, SERUM 6.8 g/dL (6.4-8.2)
[2021-09-02] MEDS ORDERED: ONDANSETRON 4 MG/2 ML VIAL IV ONE (13:30)
[2021-09-02] MEDS ORDERED: HYDROMORPHONE 1 MG/1 ML DISP.SYRIN IV ONE (15:00)
[2021-09-02] MEDS ORDERED: HYDROMORPHONE 1 MG/1 ML DISP.SYRIN ONE (15:02)
[2021-09-02] MEDS ORDERED: LIDO28.310 TP (15:17)
[2021-09-02] MEDS ORDERED: PRED20TA PO (15:18)
[2021-09-02] MEDS ORDERED: AZIT250T PO (15:18)
--- NOTE | 2021-09-02 15:19 | NUR ---
Patient discharged to home in stable condition. Written and verbal after care instructions given. Patient verbalizes understanding of instructions. Stressed follow up or return to ER for worsening s/s.pt walks in steady gait. pt says feels better. pt is not driving, so here to take the pt home.
[2021-09-02 16:00] VITALS: BP 129/61
== END 2021-09-02 15:19 | disposition home or self-care (01) ==
LOC: ER 12:33
DX: S22.31XA Fracture of one rib, right side, initial encounter for closed fracture (principal); X50.9XXA Other and unspecified overexertion or strenuous movements or postures, initial encounter; Y93.89 Activity, other specified; Y92.89 Other specified places as the place of occurrence of the external cause; J44.9 Chronic obstructive pulmonary disease, unspecified; M84.48XD Pathological fracture, other site, subsequent encounter for fracture with routine healing; E66.9 Obesity, unspecified; Z68.36 Body mass index [BMI] 36.0-36.9, adult; Z88.0 Allergy status to penicillin; Z88.6 Allergy status to analgesic agent; Z91.040 Latex allergy status; F17.200 Nicotine dependence, unspecified, uncomplicated; D72.829 Elevated white blood cell count, unspecified; J44.1 Chronic obstructive pulmonary disease with (acute) exacerbation
CPT/HCPCS: 36415; 71045; 71260; 74177; 80053; 85025; 93005; 96374; 96375; 99285; J1170; J2270; J2405; Q9967; A4663; J7050

== ENCOUNTER 2021-10-13 11:18 | Emergency (ER) | payer OTHER ==
[~2021-10-13] VITALS: Ht 157.5 cm; Wt 89.8 kg
[~2021-10-13 11:18] MED LIST changes: +AZIT250T PO; +LIDO28.310 TP; +PRED20TA PO
[2021-10-13 12:10] LABS: HEMATOCRIT 44.9 % (31.2-41.9); MEAN CORPUSCULAR VOLUME 84.5 fL (75.5-95.3); PLATELET COUNT (AUTO) 258 K/uL (179-408)
[2021-10-13] MEDS: HYDROMORPHONE 1 MG/1 ML DISP.SYRIN IV ONE ×2 (12:11→13:55)
[2021-10-13] MEDS: PANTOPRAZOLE SODIUM 40 MG VIAL IV ONE (12:12)
[2021-10-13] MEDS: IV NORMAL SALINE 1000 ML BAG IV ONE (12:12)
[2021-10-13] MEDS ORDERED: PANTOPRAZOLE SODIUM 40 MG VIAL ONE (12:12)
[2021-10-13] MEDS ORDERED: ONDANSETRON 4 MG/2 ML VIAL ONE (12:12)
[2021-10-13] MEDS ORDERED: HYDROMORPHONE 1 MG/1 ML DISP.SYRIN ONE ×2 (12:12→14:05)
[2021-10-13] MEDS: ONDANSETRON 4 MG/2 ML VIAL IV ONE (12:13)
--- NOTE | 2021-10-13 12:14 | NUR ---
PT IS IN ROOM #2B. DR AUSTIN EVALUATED THE PT.
[2021-10-13 12:20] LABS: CREATININE 0.8 mg/dL (0.6-1.3); POTASSIUM 3.9 mmol/L (3.5-5.1)
[2021-10-13 12:25] LABS: BILIRUBIN,DIRECT 0.1 mg/dL (0.0-0.2); BILIRUBIN,TOTAL 0.2 mg/dL (0.2-1.0); TOTAL PROTEIN, SERUM 6.9 g/dL (6.4-8.2)
[2021-10-13] MEDS ORDERED: ONDA4TAB5 PO (13:48)
--- NOTE | 2021-10-13 14:20 | NUR ---
PT WAS D/C'd TO HOME. D/C INSTRUCTIONS GIVEN TO THE PT BY DR AUSTIN.
[2021-10-13 14:32] VITALS: BP 133/69
== END 2021-10-13 14:33 | disposition home or self-care (01) ==
LOC: ER 11:18
DX: U07.1 COVID-19 (principal); J12.82 Pneumonia due to coronavirus disease 2019; G89.4 Chronic pain syndrome; R10.9 Unspecified abdominal pain; J44.9 Chronic obstructive pulmonary disease, unspecified; F17.290 Nicotine dependence, other tobacco product, uncomplicated; Z88.0 Allergy status to penicillin; Z91.013 Allergy to seafood; Z91.040 Latex allergy status; Z88.8 Allergy status to other drugs, medicaments and biological substances; Z79.2 Long term (current) use of antibiotics; Z79.899 Other long term (current) drug therapy; Z79.1 Long term (current) use of non-steroidal anti-inflammatories (NSAID)
CPT/HCPCS: 36415; 71045; 72100; 74176; 80048; 80076; 83690; 84484; 85025; 87426; 93005; 96361; 96374; 96375; 96376; 99285; C9113; J1170 ×2; J2405; 70030-TC; A4663; J7030

== ENCOUNTER 2021-11-01 20:41 | Emergency (ER) | payer OTHER ==
[~2021-11-01] VITALS: Ht 157.5 cm; Wt 77.1 kg
--- NOTE | 2021-11-01 21:00 | NUR ---
Patient was placed in room 4a for c/o CP radiating to back describing pain as 9/10 stabbing, shooting pain with SOB after a slip and fall while getting out of bathtub 4 days ago. She states that she took 2 tabs of 10mg Percocet for pain but was not effective.
[2021-11-01] MEDS ORDERED: NITROGLYCERIN OINT 1 GM PACKET TP ONE ×2 (21:30→21:35)
--- NOTE | 2021-11-01 21:35 | NUR ---
Dr Murrell into eval patient.
[2021-11-01 21:38] LABS: HEMATOCRIT 45.1 % (31.2-41.9); MEAN CORPUSCULAR HEMOGLOBIN 27.7 uug (24.7-32.8); PLATELET COUNT (AUTO) 277 K/uL (179-408)
[2021-11-01 22:04] LABS: CREATININE 0.9 mg/dL (0.6-1.3); POTASSIUM 3.7 mmol/L (3.5-5.1)
[2021-11-01] MEDS ORDERED: OXYC-128 PO (22:39)
[2021-11-01] MEDS ORDERED: ALBU6.7H9 INH (22:39)
[2021-11-01] MEDS ORDERED: FLUT12AE5 INH (22:39)
[2021-11-01] MEDS ORDERED: PROC5TAB56 PO (22:39)
--- NOTE | 2021-11-01 22:50 | NUR ---
IV removed. Catheter intact and site benign. Pressure and 4x4 gauze applied to site. No bleeding noted.
[2021-11-01 22:53] VITALS: BP 135/80
--- NOTE | 2021-11-01 22:54 | NUR ---
Patient discharged to home in stable condition. Written and verbal after care instructions given. Patient verbalizes understanding of instructions. Stressed follow up or return to ER for worsening s/s.
== END 2021-11-01 22:54 | disposition home or self-care (01) ==
LOC: ER 20:44
DX: R07.9 Chest pain, unspecified (principal); J44.9 Chronic obstructive pulmonary disease, unspecified; R00.0 Tachycardia, unspecified; M79.7 Fibromyalgia; Z88.6 Allergy status to analgesic agent; Z88.0 Allergy status to penicillin; F17.210 Nicotine dependence, cigarettes, uncomplicated; E66.9 Obesity, unspecified; Z68.31 Body mass index [BMI] 31.0-31.9, adult; Z20.822 Contact with and (suspected) exposure to COVID-19
CPT/HCPCS: 36415; 70030-TC; 71045; 83735; 85025; 93005; A4663; J7030

== ENCOUNTER 2022-01-09 22:24 | Inpatient (IN) | payer OTHER ==
[~2022-01-09] VITALS: Ht 154.9 cm; Wt 89.8 kg
[~2022-01-09 22:24] MED LIST changes: +ALBU6.7H9 INH; +FLUT12AE5 INH; +OXYC-128 PO; +PROC5TAB56 PO
--- NOTE | 2022-01-09 23:21 | NUR ---
Dr. Kam at bedside for MSE.
[2022-01-09] MEDS ORDERED: predniSONE 10 MG TABLET PO ONE (23:30)
[2022-01-09] MEDS ORDERED: IPRATROPIUM BROMIDE 0.5 MG/2.5 ML NEBU NEB ONE (23:30)
[2022-01-09] MEDS ORDERED: ALBUTEROL SULFATE 2.5 MG/3 ML NEBU NEB ONE (23:30)
[2022-01-09] MEDS ORDERED: IPRATROPIUM BROMIDE 0.5 MG/2.5 ML NEBU ONE (23:37)
[2022-01-09] MEDS ORDERED: ALBUTEROL SULFATE 2.5 MG/ 0.5 ML NEBU ONE (23:37)
[2022-01-09] MEDS ORDERED: ALBUTEROL SULFATE 2.5 MG/3 ML NEBU ONE (23:40)
[2022-01-09] MEDS ORDERED: predniSONE 10 MG TABLET ONE (23:42)
[2022-01-09] MEDS ORDERED: ONDANSETRON 4 MG/2 ML VIAL IV ONE (23:45)
[2022-01-09] MEDS ORDERED: HYDROMORPHONE 1 MG/1 ML DISP.SYRIN IV ONE (23:45)
[2022-01-09] MEDS ORDERED: ONDANSETRON 4 MG/2 ML VIAL ONE (23:51)
[2022-01-09] MEDS ORDERED: HYDROMORPHONE 1 MG/1 ML DISP.SYRIN ONE (23:51)
[2022-01-10] LABS: HEMATOCRIT 43.3 % (31.2-41.9); MEAN CORPUSCULAR HEMOGLOBIN 27.7 uug (24.7-32.8); MEAN CORPUSCULAR VOLUME 84.3 fL (75.5-95.3); PLATELET COUNT (AUTO) 263 K/uL (179-408)
[2022-01-10] MEDS ORDERED: ALBUTEROL SULFATE 2.5 MG/3 ML NEBU ONE ×2 (00:07→01:51)
[2022-01-10 00:15] LABS: CARBON DIOXIDE 31 mmol/L (21-32); CHLORIDE 104 mmol/L (98-107); CREATININE 0.9 mg/dL (0.6-1.3); GLUCOSE 108 mg/dL (74-106); POTASSIUM 3.8 mmol/L (3.5-5.1); UREA NITROGEN, BLOOD 16 mg/dL (7-18)
[2022-01-10] MEDS ORDERED: ALBUTEROL SULFATE 2.5 MG/3 ML NEBU NEB ONE ×2 (00:15→01:45)
[2022-01-10 00:17] LABS: *BILIRUBIN,URIN NEGATIVE (NEGATIVE); *CLARITY,URINE CLOUDY (CLEAR); *COLOR,URINE YELLOW (YELLOW); *KETONES,URINE NEGATIVE (NEGATIVE); *UROBILINOGEN,URINE 0.2 E.U./dl (NORMAL); LEUKOCYTE ESTERASE ,URINE TRACE (NEGATIVE); NITRITE, URINE POSITIVE (NEGATIVE); PH,URINE 5.5 (5.0-8.0); UGLUCOSE NEGATIVE (NEGATIVE)
[2022-01-10 00:19] LABS: *BLOOD, URINE TRACE (NEGATIVE)
[2022-01-10 00:32] LABS: ALANINE AMINOTRANSFERASE 39 U/L (14-59); ALKALINE PHOSPHATASE 86 U/L (50-136); ASPARTATE AMINOTRANSFERASE 19 U/L (15-37); BILIRUBIN,DIRECT 0.1 mg/dL (0.0-0.2); BILIRUBIN,TOTAL 0.3 mg/dL (0.2-1.0); TOTAL PROTEIN, SERUM 6.8 g/dL (6.4-8.2)
[2022-01-10 00:41] LABS: BACTERIA,URINE MANY /HPF (NONE SEEN); SQUAMOUS EPITHELIAL CELL,UR FEW /HPF (NONE SEEN)
[2022-01-10] MEDS ORDERED: IV NORMAL SALINE 250 ML IV ONE (00:45)
[2022-01-10] MEDS ORDERED: SWABABLE VALVE TRANSFER SET EA MC ONE (00:45)
[2022-01-10] MEDS ORDERED: IOHEXOL 350 100 ML INFUS..BTL ONE (00:45)
--- NOTE | 2022-01-10 00:52 | NUR ---
pt taken to cat scan.
--- NOTE | 2022-01-10 01:09 | NUR ---
pt returned from cat scan.
[2022-01-10] MEDS ORDERED: CEFTRIAXONE 1 G in IV DEXTROSE 5% 50 ML IV ONE (01:15)
[2022-01-10] MEDS ORDERED: CEFTRIAXONE /D5W 50ML IVPB **ER PYXIS IV ONE (01:22)
[2022-01-10] MEDS ORDERED: HYDROMORPHONE 1 MG/1 ML DISP.SYRIN ONE ×3 (01:28→04:33)
[2022-01-10] MEDS ORDERED: HYDROMORPHONE 1 MG/1 ML DISP.SYRIN IV ONE ×3 (01:30→04:15)
[2022-01-10 04:00] VITALS: BP 112/69
--- NOTE | 2022-01-10 04:05 | NUR ---
pt ambulated to the bathroom without assist, pt spo2 decreaed to 88 without oxygen. o2 replaced. call placed to [facility] electronics technician apprentice for admission.
[2022-01-10] MEDS ORDERED: OXYCODONE HCL 5 MG TABLET PO PRN (04:30)
[2022-01-10] MEDS ORDERED: ACETAMINOPHEN 325 MG TABLET PO PRN (04:30)
[2022-01-10] MEDS ORDERED: MAGNESIUM HYDROXIDE 30 ML LIQUID UDC PO PRN (04:30)
[2022-01-10] MEDS ORDERED: DEXTROSE 50% 50 ML DISP.SYRIN IV PRN (04:30)
[2022-01-10] MEDS ORDERED: REMEDY ESSENTIAL ZINC PASTE 113 GM TP PRN (04:30)
[2022-01-10] MEDS ORDERED: ONDANSETRON 4 MG/2 ML VIAL IV PRN (04:30)
--- NOTE | 2022-01-10 04:31 | NUR ---
Dr. Jere Fischer called spoke with Dr. Kam.
--- NOTE | 2022-01-10 04:45 | NUR ---
called upstairs they state they cannot take the pt. I informed Gabe my charge nurse and he called the house manager.
--- NOTE | 2022-01-10 04:56 | NUR ---
report given to Will RN pt to go to room 317 tele status.
--- NOTE | 2022-01-10 05:50 | NUR ---
Admitted patient in tele floor under the care of Dr Jere Lincoln, tele monitor sinus rhythm sinus tachy 103, alert oriented, on oxygen 4liters sat wnl. Patient ambulatory assist with toileting, cont to monitor.
--- NOTE | 2022-01-10 05:58 | NUR ---
pt transferred to room 317 with all belongings via PHONG nuñez Will at bedside to receive the pt.
[2022-01-10 06:00] VITALS: BP 112/69
[2022-01-10] MEDS ORDERED: methylPREDNISolone SOD SUCC 125 MG/2 ML VIAL IV SCH (06:00)
[2022-01-10] MEDS: PANTOPRAZOLE SODIUM 40 MG TABLET.DR PO SCH (06:08)
[2022-01-10] MEDS: methylPREDNISolone SOD SUCC 40 MG/ML VIAL IV SCH ×4 (06:08→23:09)
[2022-01-10] MEDS: BLOOD SUGAR DIAGNOSTIC 1 EACH STRIP VI SCH ×4 (06:09→22:04)
--- NOTE | 2022-01-10 08:34 | NUR ---
Patient threatening to leave facility AMA as stated "if the DrRegi doesn't given morphine 15mg po X4 doses a day and dilaudid 1mg 4X day" " that's the medication I received in the ER. last night and I need my pain medications now then I'll go to see my own Dr. that gives me those pain medications".
[2022-01-10] MEDS: ENOXAPARIN SODIUM 40 MG/0.4 ML DISP.SYRIN SQ SCH (08:50)
[2022-01-10] MEDS: LIDOCAINE 5% PATCH TD SCH (09:00)
[2022-01-10] MEDS ORDERED: ESCITALOPRAM OXALATE 10 MG TABLET PO ONE (09:00)
[2022-01-10] MEDS ORDERED: METRONIDAZOLE 500 MG TABLET PO SCH (09:00)
[2022-01-10] MEDS: HYDROMORPHONE 1 MG/1 ML DISP.SYRIN IV PRN ×4 (10:36→23:06)
[2022-01-10 12:00] VITALS: BP 114/64
[2022-01-10] MEDS: INSULIN REGULAR, HUMAN 300 UNIT/3 ML VIAL SQ PRN ×3 (12:17→22:05)
[2022-01-10] MEDS: IPRATROPIUM BROMIDE 0.5 MG/2.5 ML NEBU NEB PRN (15:22)
[2022-01-10] MEDS: ALBUTEROL SULFATE 2.5 MG/3 ML NEBU NEB PRN (15:22)
[2022-01-10 16:03] VITALS: BP 118/72
[2022-01-10] MEDS ORDERED: MONTELUKAST SODIUM 10 MG TABLET PO SCH (18:00)
--- NOTE | 2022-01-10 18:00 | NUR ---
PATIENT REASSIGNMENT RECEIVED PATIENT AT THIS TIME SHE IS ALERT AND ORIENTED IN BED IN LOW FOWLERS POSITION WITH O2 IN PROGRESS AT 3L/M BY NASAL CANULA WITH NO SHORTNESS OF BREATH AT THIS TIME CALL LIGHTS AND HER PERSOANL BELONGINGS ARE WITHIN EASY REACH MADE COMFORTABLE AND WILL CONTINUE TO OBSERVE.
[2022-01-10 20:19] VITALS: BP 124/71
[2022-01-10] MEDS ORDERED: ATORVASTATIN 20 MG TABLET PO SCH (21:00)
[2022-01-10] MEDS ORDERED: GABAPENTIN 300 MG CAPSULE PO SCH (21:00)
[2022-01-11 00:04] VITALS: BP 110/62
[2022-01-11] MEDS ORDERED: CEFTRIAXONE 1 G in IV DEXTROSE 5% 50 ML IV SCH (01:00)
[2022-01-11] MEDS: HYDROMORPHONE 1 MG/1 ML DISP.SYRIN IV PRN ×3 (04:13→12:30)
[2022-01-11] MEDS: ALBUTEROL SULFATE 2.5 MG/3 ML NEBU NEB PRN ×2 (04:24→13:12)
[2022-01-11] MEDS: IPRATROPIUM BROMIDE 0.5 MG/2.5 ML NEBU NEB PRN (04:24)
[2022-01-11 04:47] VITALS: BP 129/70
--- NOTE | 2022-01-11 05:20 | NUR ---
PATIENT ALERT ORIENTED, NO SOB NO CHEST PAIN, CONT ON PAIN MANAGEMENT DUE UTI, RT GAVE HHN TX FOR ASTHMA EPISODE, CONTINENT, GOES TO BATHROOM WITH MIN ASSIST, TELE MONITOR SINUS RHYTHM, SINUS TACHY EPISODE, CONT TO MONITOR.
[2022-01-11] MEDS: methylPREDNISolone SOD SUCC 40 MG/ML VIAL IV SCH ×2 (05:46→11:39)
[2022-01-11] MEDS: PANTOPRAZOLE SODIUM 40 MG TABLET.DR PO SCH (06:10)
[2022-01-11] MEDS: BLOOD SUGAR DIAGNOSTIC 1 EACH STRIP VI SCH ×2 (06:11→11:31)
[2022-01-11 06:52] LABS: HEMATOCRIT 43.7 % (31.2-41.9); MEAN CORPUSCULAR HEMOGLOBIN 27.2 uug (24.7-32.8); MEAN CORPUSCULAR VOLUME 84.4 fL (75.5-95.3); PLATELET COUNT (AUTO) 293 K/uL (179-408)
[2022-01-11 07:27] LABS: BILIRUBIN,TOTAL 0.1 mg/dL (0.2-1.0); MAGNESIUM 2.2 mg/dL (1.8-2.4); PHOSPHOROUS 3.1 mg/dL (2.5-4.9); POTASSIUM 4.4 mmol/L (3.5-5.1); TOTAL PROTEIN, SERUM 6.7 g/dL (6.4-8.2)
[2022-01-11] MEDS: LIDOCAINE 5% PATCH TD SCH (08:08)
[2022-01-11] MEDS: INSULIN REGULAR, HUMAN 300 UNIT/3 ML VIAL SQ PRN ×2 (08:10→11:32)
[2022-01-11] MEDS: ENOXAPARIN SODIUM 40 MG/0.4 ML DISP.SYRIN SQ SCH (08:31)
[2022-01-11] MEDS ORDERED: ESCITALOPRAM OXALATE 10 MG TABLET PO SCH (09:00)
[2022-01-11] MEDS ORDERED: METH4TAB3 PO (11:38)
[2022-01-11] MEDS ORDERED: HYDR-3980 PO (11:38)
[2022-01-11] MEDS ORDERED: ATOR40TA PO (11:38)
[2022-01-11] MEDS ORDERED: LEVO500T90 PO (11:44)
[2022-01-11 12:00] VITALS: BP 101/59
--- NOTE | 2022-01-11 14:08 | NUR ---
Patient to be discharged. IV site removed. ID badge removed. Discharge education provided.
[2022-01-11] MEDS ORDERED: ATORVASTATIN 40 MG TABLET PO SCH (21:00)
[2022-01-12] MEDS ORDERED: METFORMIN HCL 500 MG TABLET PO SCH (08:00)
== END 2022-01-11 14:26 | disposition home or self-care (01) | DRG 140 ==
LOC: ER 22:25 → TELE3 01-10 04:53 → MEDSURG3 01-11 08:44
PROVIDERS: ADMIT Internal Medicine; ATTEND Internal Medicine
PROC: 05H533Z Insertion of Infusion Device into Right Subclavian Vein, Percutaneous Approach (ICD-10-PCS; principal; 2022-01-10)
PROC: B546ZZA Ultrasonography of Right Subclavian Vein, Guidance (ICD-10-PCS; principal; 2022-01-10)
DX: J44.1 Chronic obstructive pulmonary disease with (acute) exacerbation (principal); J96.91 Respiratory failure, unspecified with hypoxia; J45.901 Unspecified asthma with (acute) exacerbation; J90 Pleural effusion, not elsewhere classified; E09.65 Drug or chemical induced diabetes mellitus with hyperglycemia; K44.9 Diaphragmatic hernia without obstruction or gangrene; E66.9 Obesity, unspecified; D72.828 Other elevated white blood cell count; E78.5 Hyperlipidemia, unspecified; G89.4 Chronic pain syndrome; Z20.822 Contact with and (suspected) exposure to COVID-19; Z88.0 Allergy status to penicillin; G43.909 Migraine, unspecified, not intractable, without status migrainosus; K76.0 Fatty (change of) liver, not elsewhere classified; M79.7 Fibromyalgia; F32.A Depression, unspecified; G47.00 Insomnia, unspecified; F41.9 Anxiety disorder, unspecified; L30.9 Dermatitis, unspecified; Z87.891 Personal history of nicotine dependence; T38.0X5A Adverse effect of glucocorticoids and synthetic analogues, initial encounter; Y92.009 Unspecified place in unspecified non-institutional (private) residence as the place of occurrence of the external cause; Z79.84 Long term (current) use of oral hypoglycemic drugs; J98.11 Atelectasis; Z68.37 Body mass index [BMI] 37.0-37.9, adult; Z87.11 Personal history of peptic ulcer disease
CPT/HCPCS: 36415; 71045; 71275; 76856; 83735; 84100; 84484; 85025; 87086; 87400; 93005; 94640; 94664; A4663; G0378; J0696; J1170; J1650; J1815; J2405; J2920; J3590; J7512; Q9967

== ENCOUNTER 2022-01-27 10:04 | Emergency (ER) | payer OTHER ==
[~2022-01-27] VITALS: Ht 157.5 cm; Wt 90.7 kg
[~2022-01-27 10:04] MED LIST changes: +ATOR40TA PO; -AZIT250T PO; +LEVO500T90 PO; +METH4TAB3 PO
[2022-01-27] MEDS ORDERED: CEFTRIAXONE 1 G in IV DEXTROSE 5% 50 ML IV ONE (10:30)
[2022-01-27] MEDS ORDERED: HYDROCODONE/APAP 5-325MG TABLET PO ONE (10:30)
[2022-01-27] MEDS ORDERED: IV NORMAL SALINE 1000 ML BAG IV ONE (10:30)
[2022-01-27] MEDS ORDERED: DEXAMETHASONE SOD PHOSPHATE 4 MG INJ IV ONE (10:30)
--- NOTE | 2022-01-27 10:30 | NUR ---
MD at bedside, medical screening exam in progress.
[2022-01-27] MEDS ORDERED: ALBUTEROL SULFATE 2.5 MG/3 ML NEBU NEB ONE ×2 (10:45→12:15)
[2022-01-27] MEDS ORDERED: MAGNESIUM SULFATE 2 GM in IV DEXTROSE 5% 100 ML IV ONE (10:45)
[2022-01-27] MEDS ORDERED: IPRATROPIUM BROMIDE 0.5 MG/2.5 ML NEBU NEB ONE (10:45)
[2022-01-27] MEDS ORDERED: DEXAMETHASONE SOD PHOSPHATE 10 MG INJ ONE (10:48)
[2022-01-27] MEDS ORDERED: CEFTRIAXONE /D5W 50ML IVPB **ER PYXIS IV ONE (10:48)
[2022-01-27] MEDS ORDERED: HYDROCODONE/APAP 5-325MG TABLET ONE (10:49)
[2022-01-27] MEDS ORDERED: MAGNESIUM SULFATE/D5W 100 ML ONE (10:52)
[2022-01-27] MEDS ORDERED: ALBUTEROL SULFATE 2.5 MG/3 ML NEBU ONE ×2 (11:02→12:15)
[2022-01-27] MEDS ORDERED: IPRATROPIUM BROMIDE 0.5 MG/2.5 ML NEBU ONE (11:02)
[2022-01-27 11:13] LABS: *BILIRUBIN,URIN NEGATIVE (NEGATIVE); *BLOOD, URINE NEGATIVE (NEGATIVE); *CLARITY,URINE SLIGHTLY CLOUDY (CLEAR); *COLOR,URINE LIGHT YELLOW (YELLOW); *KETONES,URINE NEGATIVE (NEGATIVE); *UROBILINOGEN,URINE 0.2 E.U./dl (NORMAL); LEUKOCYTE ESTERASE ,URINE NEGATIVE (NEGATIVE); NITRITE, URINE POSITIVE (NEGATIVE); UGLUCOSE NEGATIVE (NEGATIVE)
[2022-01-27 11:35] LABS: HEMATOCRIT 44.4 % (31.2-41.9); MEAN CORPUSCULAR HEMOGLOBIN 27.3 uug (24.7-32.8); MEAN CORPUSCULAR VOLUME 84.5 fL (75.5-95.3); PLATELET COUNT (AUTO) 271 K/uL (179-408)
[2022-01-27 11:45] LABS: CARBON DIOXIDE 30 mmol/L (21-32); CHLORIDE 103 mmol/L (98-107); CREATININE 0.8 mg/dL (0.6-1.3); GLUCOSE 98 mg/dL (74-106); POTASSIUM 4.4 mmol/L (3.5-5.1); UREA NITROGEN, BLOOD 12 mg/dL (7-18)
[2022-01-27 11:58] LABS: ALANINE AMINOTRANSFERASE 45 U/L (14-59); ALKALINE PHOSPHATASE 86 U/L (50-136); ASPARTATE AMINOTRANSFERASE 21 U/L (15-37); BILIRUBIN,DIRECT < 0.1 mg/dL (0.0-0.2); BILIRUBIN,TOTAL 0.2 mg/dL (0.2-1.0); TOTAL PROTEIN, SERUM 6.9 g/dL (6.4-8.2)
[2022-01-27] MEDS ORDERED: CYCLOBENZAPRINE HCL 10 MG TABLET PO ONE (12:15)
[2022-01-27] MEDS ORDERED: CYCLOBENZAPRINE HCL 10 MG TABLET ONE (12:16)
[2022-01-27] MEDS ORDERED: DOXY-326 PO (12:23)
[2022-01-27] MEDS ORDERED: CEPH500C2 PO (12:23)
--- NOTE | 2022-01-27 12:30 | NUR ---
Patient refused to finish NS IV fluid with remaining fluid of 400ml, she also refused to finish breathing treatment and only 1gm of magnesium sulfate was given due to refusal. Patient signed dc papers, went home with steady gait, vitals taken as follows; BP-129/80 WV-95 RR-19 T-98F SPO2-98 RA. Patient discharged to home in stable condition. Written and verbal after care instructions given. Patient verbalizes understanding of instructions. Stressed follow up or return to ER for worsening s/s.
[2022-01-27 12:46] VITALS: BP 129/70
[2022-01-27 13:25] LABS: RBC,URINE 0-3 /HPF (0-3)
[2022-01-27 13:26] LABS: BACTERIA,URINE MANY /HPF (NONE SEEN); SQUAMOUS EPITHELIAL CELL,UR FEW /HPF (NONE SEEN)
== END 2022-01-27 13:00 | disposition home or self-care (01) ==
LOC: ER 10:04
DX: J44.9 Chronic obstructive pulmonary disease, unspecified (principal); J45.901 Unspecified asthma with (acute) exacerbation; N39.0 Urinary tract infection, site not specified; R10.30 Lower abdominal pain, unspecified; Z88.0 Allergy status to penicillin; Z88.6 Allergy status to analgesic agent; Z88.3 Allergy status to other anti-infective agents; Z91.040 Latex allergy status; E66.9 Obesity, unspecified; Z68.36 Body mass index [BMI] 36.0-36.9, adult; E11.9 Type 2 diabetes mellitus without complications; M79.7 Fibromyalgia; Z78.0 Asymptomatic menopausal state; K21.9 Gastro-esophageal reflux disease without esophagitis; Z87.11 Personal history of peptic ulcer disease
CPT/HCPCS: 36415; 71046; 71250; 74176; 80048; 80076; 81001; 83605; 83880; 84145; 84484; 85025; 85730; 87040 ×2; 87070; 87077 ×2; 87086; 87186 ×2; 87400; 93005; 94644; 96365; 96367; 96375; 99285; J0696; J1100; J3475; J7040; 94640; A4663; J3590

== ENCOUNTER 2022-02-28 10:06 | Inpatient (IN) | payer OTHER ==
[~2022-02-28] VITALS: Ht 157.5 cm; Wt 90.7 kg
[~2022-02-28 10:06] MED LIST changes: -AZIT500T2 PO; +CEPH500C2 PO; +DOXY-326 PO; -FLUT12AE5 INH; -GABA-534 PO; -LEVO500T90 PO; -METH4TAB3 PO; -METR-147 PO; -PROC5TAB56 PO
[2022-02-28] MEDS ORDERED: ALBUTEROL SULFATE 2.5 MG/3 ML NEBU NEB ONE (10:30)
[2022-02-28] MEDS ORDERED: methylPREDNISolone SOD SUCC 125 MG/2 ML VIAL IV ONE (10:30)
[2022-02-28] MEDS ORDERED: MORPHINE SULFATE 4 MG/1 ML DISP.SYRIN IV ONE ×2 (10:30→13:15)
[2022-02-28] MEDS ORDERED: IPRATROPIUM BROMIDE 0.5 MG/2.5 ML NEBU NEB ONE (10:30)
[2022-02-28] MEDS ORDERED: ONDANSETRON 4 MG/2 ML VIAL IV ONE ×2 (10:30→13:15)
[2022-02-28] MEDS ORDERED: ALBUTEROL SULFATE 2.5 MG/3 ML NEBU ONE ×3 (10:31→10:32)
[2022-02-28] MEDS ORDERED: ALBUTEROL SULFATE 2.5 MG/ 0.5 ML NEBU ONE ×4 (10:33→10:34)
[2022-02-28] MEDS ORDERED: IPRATROPIUM BROMIDE 0.5 MG/2.5 ML NEBU ONE (10:34)
[2022-02-28] MEDS ORDERED: ONDANSETRON 4 MG/2 ML VIAL ONE ×2 (10:45→13:07)
[2022-02-28] MEDS ORDERED: methylPREDNISolone SOD SUCC 125 MG/2 ML VIAL ONE (10:46)
[2022-02-28] MEDS ORDERED: MORPHINE SULFATE 4 MG/1 ML DISP.SYRIN ONE ×2 (10:46→13:07)
[2022-02-28 11:19] LABS: ALANINE AMINOTRANSFERASE 45 U/L (14-59); ALKALINE PHOSPHATASE 78 U/L (50-136); ASPARTATE AMINOTRANSFERASE 17 U/L (15-37); BILIRUBIN,DIRECT 0.1 mg/dL (0.0-0.2); BILIRUBIN,TOTAL 0.5 mg/dL (0.2-1.0); CARBON DIOXIDE 28 mmol/L (21-32); CHLORIDE 103 mmol/L (98-107); CREATININE 0.9 mg/dL (0.6-1.3); GLUCOSE 123 mg/dL (74-106); TOTAL PROTEIN, SERUM 7.2 g/dL (6.4-8.2); UREA NITROGEN, BLOOD 16 mg/dL (7-18)
[2022-02-28 11:58] LABS: HEMATOCRIT 45.2 % (31.2-41.9); MEAN CORPUSCULAR HEMOGLOBIN 27.6 uug (24.7-32.8); MEAN CORPUSCULAR VOLUME 83.6 fL (75.5-95.3); PLATELET COUNT (AUTO) 277 K/uL (179-408)
[2022-02-28] MEDS ORDERED: levoFLOXacin 750 MG/D5W 150 ML PIGGYBACK IV ONE (12:00)
[2022-02-28] MEDS ORDERED: IV NORMAL SALINE 1000 ML BAG IV ONE (12:00)
[2022-02-28] MEDS ORDERED: levoFLOXacin 750MG/D5W 150 ML IV ONE (12:29)
[2022-02-28] MEDS ORDERED: OXYCODONE HCL 5 MG TABLET PO PRN (14:15)
[2022-02-28] MEDS ORDERED: MORP15TA PO (16:19)
[2022-02-28] MEDS ORDERED: MORPHINE SULFATE IR 30 MG TABLET PO PRN (16:30)
[2022-02-28] MEDS ORDERED: ATORVASTATIN 40 MG TABLET PO SCH (21:00)
[2022-03-01] MEDS ORDERED: CETIRIZINE HCL 10 MG TABLET PO PRN (09:00)
[2022-03-01] MEDS ORDERED: MONTELUKAST SODIUM 10 MG TABLET PO SCH (09:00)
[2022-03-01] MEDS ORDERED: ESCITALOPRAM OXALATE 10 MG TABLET PO SCH (09:00)
[2022-03-01] MEDS ORDERED: LIDOCAINE 5% PATCH TD SCH (09:00)
== END 2022-02-28 17:48 | disposition left against medical advice (07) | DRG 145 ==
LOC: ER 10:06 → TRANSITION 15:29 → UNDODISIN 03-01 15:31
PROVIDERS: ADMIT Nurse Practitioner Acute Care; ATTEND Nurse Practitioner Acute Care
DX: J20.9 Acute bronchitis, unspecified (principal); J96.01 Acute respiratory failure with hypoxia; E87.2 Acidosis; J44.0 Chronic obstructive pulmonary disease with (acute) lower respiratory infection; E11.9 Type 2 diabetes mellitus without complications; D72.829 Elevated white blood cell count, unspecified; Z99.81 Dependence on supplemental oxygen; E66.9 Obesity, unspecified; J44.1 Chronic obstructive pulmonary disease with (acute) exacerbation; Z76.5 Malingerer [conscious simulation]; Z20.822 Contact with and (suspected) exposure to COVID-19; M79.7 Fibromyalgia; G89.4 Chronic pain syndrome; E78.5 Hyperlipidemia, unspecified; M19.90 Unspecified osteoarthritis, unspecified site; Z68.36 Body mass index [BMI] 36.0-36.9, adult; N95.9 Unspecified menopausal and perimenopausal disorder; Z79.84 Long term (current) use of oral hypoglycemic drugs; Z88.6 Allergy status to analgesic agent; Z88.1 Allergy status to other antibiotic agents; Z91.040 Latex allergy status; Z88.0 Allergy status to penicillin; Z91.013 Allergy to seafood; I10 Essential (primary) hypertension; K21.9 Gastro-esophageal reflux disease without esophagitis; F11.10 Opioid abuse, uncomplicated; F17.210 Nicotine dependence, cigarettes, uncomplicated; Z53.29 Procedure and treatment not carried out because of patient's decision for other reasons; Z79.899 Other long term (current) drug therapy; Z28.310 Unvaccinated for COVID-19; R10.9 Unspecified abdominal pain; R11.0 Nausea
CPT/HCPCS: 36415; 71045; 83605; 83690; 84484; 85025; 87040; 93005; A4663; G0378; J1956; J2270; J2405; J2930; J3590; J7040; U0003

== ENCOUNTER 2022-08-28 20:11 | Emergency (ER) | payer OTHER ==
[~2022-08-28] VITALS: Ht 157.5 cm; Wt 97.5 kg
[~2022-08-28 20:11] MED LIST changes: +MORP15TA PO; -OXYC5TAB3 PO
[2022-08-28] MEDS ORDERED: NITROGLYCERIN OINT 1 GM PACKET TP ONE ×2 (21:15→22:48)
[2022-08-28] MEDS ORDERED: ASPIRIN 81 MG TAB.CHEW PO ONE (21:15)
[2022-08-28] MEDS ORDERED: ONDANSETRON 4 MG/2 ML VIAL IV ONE (21:15)
[2022-08-28] MEDS ORDERED: HYDROMORPHONE 1 MG/1 ML DISP.SYRIN IV ONE (21:15)
[2022-08-28 21:47] LABS: HEMATOCRIT 38.6 % (31.2-41.9); MEAN CORPUSCULAR HEMOGLOBIN 27.3 uug (24.7-32.8); MEAN CORPUSCULAR VOLUME 84.9 fL (75.5-95.3); PLATELET COUNT (AUTO) 241 K/uL (179-408)
[2022-08-28 21:56] LABS: CARBON DIOXIDE 31 mmol/L (21-32); CHLORIDE 104 mmol/L (98-107); CREATININE 0.9 mg/dL (0.6-1.3); GLUCOSE 119 mg/dL (74-106); POTASSIUM 3.3 mmol/L (3.5-5.1); UREA NITROGEN, BLOOD 14 mg/dL (7-18)
--- NOTE | 2022-08-28 22:00 | NUR ---
Patient A/Ox4. NAD noted.
[2022-08-28 22:09] LABS: ALANINE AMINOTRANSFERASE 50 U/L (14-59); ALKALINE PHOSPHATASE 82 U/L (50-136); ASPARTATE AMINOTRANSFERASE 19 U/L (15-37); BILIRUBIN,DIRECT 0.1 mg/dL (0.0-0.2); BILIRUBIN,TOTAL 0.3 mg/dL (0.2-1.0); TOTAL PROTEIN, SERUM 6.8 g/dL (6.4-8.2)
[2022-08-28] MEDS ORDERED: ONDANSETRON 4 MG/2 ML VIAL ONE (22:47)
[2022-08-28] MEDS ORDERED: ASPIRIN 81 MG TAB.CHEW ONE (22:47)
[2022-08-28] MEDS ORDERED: HYDROMORPHONE 1 MG/1 ML DISP.SYRIN ONE (22:48)
[2022-08-28] MEDS ORDERED: IV NORMAL SALINE 250 ML IV ONE (23:41)
[2022-08-28] MEDS ORDERED: IOHEXOL 350 100 ML INFUS..BTL ONE (23:41)
[2022-08-28] MEDS ORDERED: SWABABLE VALVE TRANSFER SET EA MC ONE (23:41)
[2022-08-28] MEDS ORDERED: IPRATROPIUM BROMIDE 0.5 MG/2.5 ML NEBU NEB ONE (23:45)
[2022-08-28] MEDS ORDERED: ALBUTEROL SULFATE 2.5 MG/3 ML NEBU NEB ONE (23:45)
[2022-08-28] MEDS ORDERED: IPRATROPIUM BROMIDE 0.5 MG/2.5 ML NEBU ONE (23:46)
[2022-08-28] MEDS ORDERED: ALBUTEROL SULFATE 2.5 MG/3 ML NEBU ONE (23:46)
--- NOTE | 2022-08-29 00:05 | NUR ---
Patient taken downstairs for CT scan.
--- NOTE | 2022-08-29 00:20 | NUR ---
Patient back from CT.
[2022-08-29] MEDS ORDERED: HYDROMORPHONE HCL 2 MG TABLET ONE (00:21)
[2022-08-29] MEDS ORDERED: HYDROMORPHONE HCL 2 MG TABLET PO ONE (00:30)
--- NOTE | 2022-08-29 02:46 | NUR ---
Patient discharged to home in stable condition. Written and verbal after care instructions given. Given copies of EKG, labs and CT of angio. Patient verbalizes understanding of instructions. Instructed patient not to drive. Stressed follow up or return to ER for worsening s/s.
[2022-08-29 02:47] VITALS: BP 115/75
== END 2022-08-29 02:48 | disposition home or self-care (01) ==
LOC: ER 20:17
DX: R07.9 Chest pain, unspecified (principal); G89.4 Chronic pain syndrome; J44.1 Chronic obstructive pulmonary disease with (acute) exacerbation; R19.7 Diarrhea, unspecified; I10 Essential (primary) hypertension; E78.5 Hyperlipidemia, unspecified; M79.605 Pain in left leg; R11.0 Nausea; M54.50 Low back pain, unspecified; M79.7 Fibromyalgia; Z79.891 Long term (current) use of opiate analgesic
CPT/HCPCS: 99285; 71275; 93970; 96374; 71045; 96375; 87426; 99406; 80076; 80048; 83880; 85025; 85379; 84484 ×2; 36415; 93005; 73551; 73590; 73610; 73630; 72131; 94640; J2405; Q9967; J1170; A4663; J3590

== ENCOUNTER 2022-12-02 09:03 | Inpatient (IN) | payer OTHER ==
[~2022-12-02] VITALS: Ht 157.5 cm; Wt 99.8 kg
--- NOTE | 2022-12-02 09:21 | NUR ---
MD@bedside, medical screening exam in progress
[2022-12-02] MEDS ORDERED: IV NORMAL SALINE 1000 ML BAG IV ONE (09:30)
[2022-12-02] MEDS ORDERED: ONDANSETRON 4 MG/2 ML VIAL IV ONE (09:30)
[2022-12-02] MEDS ORDERED: ONDANSETRON 4 MG/2 ML VIAL ONE (09:42)
[2022-12-02 09:48] LABS: CARBON DIOXIDE 25 mmol/L (21-32); CHLORIDE 99 mmol/L (98-107); CREATININE 0.9 mg/dL (0.6-1.3); GLUCOSE 115 mg/dL (74-106); POTASSIUM 3.3 mmol/L (3.5-5.1); UREA NITROGEN, BLOOD 16 mg/dL (7-18)
[2022-12-02 09:54] LABS: ALANINE AMINOTRANSFERASE 36 U/L (14-59); ALKALINE PHOSPHATASE 83 U/L (50-136); ASPARTATE AMINOTRANSFERASE 29 U/L (15-37); BILIRUBIN,DIRECT 0.2 mg/dL (0.0-0.2); BILIRUBIN,TOTAL 0.7 mg/dL (0.2-1.0); TOTAL PROTEIN, SERUM 7.4 g/dL (6.4-8.2)
[2022-12-02 09:56] LABS: LIPASE 97 U/L (73-393)
[2022-12-02 10:11] LABS: HEMATOCRIT 43.9 % (31.2-41.9); MEAN CORPUSCULAR HEMOGLOBIN 25.8 uug (24.7-32.8); MEAN CORPUSCULAR VOLUME 81.9 fL (75.5-95.3); PLATELET COUNT (AUTO) 270 K/uL (179-408)
[2022-12-02] MEDS ORDERED: IPRATROPIUM BROMIDE 0.5 MG/2.5 ML NEBU NEB ONE (10:15)
[2022-12-02] MEDS ORDERED: ALBUTEROL SULFATE 2.5 MG/3 ML NEBU NEB ONE (10:15)
[2022-12-02] MEDS ORDERED: IPRATROPIUM BROMIDE 0.5 MG/2.5 ML NEBU ONE (10:19)
[2022-12-02] MEDS ORDERED: ALBUTEROL SULFATE 2.5 MG/3 ML NEBU ONE (10:19)
--- NOTE | 2022-12-02 10:26 | NUR ---
Pt is A&Ox4. Coperative. Pt stqated she's "on 3L of O2 at home." States she's feeling "out of breath." Initiated 3L o2 via NC. Started saline lock 22G R. wrist. Initiated NS 1L. Pt stated she was "nauseous." Administered Zofran. Pt stated she has "back pain rated 8/10." Informed PHONG Arevalo. Safety measures in place. Will continue to monitor.
[2022-12-02] MEDS ORDERED: ACETAMINOPHEN 325 MG TABLET ONE (10:39)
[2022-12-02] MEDS ORDERED: ACETAMINOPHEN 325 MG TABLET PO ONE (10:45)
[2022-12-02 10:51] LABS: *BILIRUBIN,URIN 2+ (NEGATIVE); *BLOOD, URINE 1+ (NEGATIVE); *CLARITY,URINE CLEAR (CLEAR); *COLOR,URINE YELLOW (YELLOW); *KETONES,URINE 4+ (NEGATIVE); *UROBILINOGEN,URINE 0.2 E.U./dl (NORMAL); LEUKOCYTE ESTERASE ,URINE NEGATIVE (NEGATIVE); NITRITE, URINE NEGATIVE (NEGATIVE); PH,URINE 5.5 (5.0-8.0); UGLUCOSE NEGATIVE (NEGATIVE)
--- NOTE | 2022-12-02 11:20 | NUR ---
"Plan to admit" per Dr Roldan, ER registration/admitting staff Mindy notified.
--- NOTE | 2022-12-02 12:47 | NUR ---
"OK to admit" per ER registration staff Narayan BATRES notified.
--- NOTE | 2022-12-02 12:59 | NUR ---
Patient is resting while seated on the gurney. Patient wants more pain medicine, notified.
[2022-12-02 13:06] LABS: BACTERIA,URINE NONE SEEN /HPF (NONE SEEN); RBC,URINE 0-3 /HPF (0-3); WBC,URINE 0-3 /HPF (0-3)
[2022-12-02 13:07] LABS: SQUAMOUS EPITHELIAL CELL,UR NONE SEEN /HPF (NONE SEEN); URINE AMORPHOUS URATE MANY /HPF
--- NOTE | 2022-12-02 14:04 | NUR ---
Gave shift report to Zack (PHONG). Safety measures in place. Will continue to monitor.
--- NOTE | 2022-12-02 14:10 | NUR ---
report received from Shaq HORSE RANCHER. pt presented to er with Nausea and abdominal. pt aox4. ambulatory with assist. gen weakness noted. pt on 3l NC saturating 98-99. vitals wnl. pt will be admitted to med surg. dr bailey will follow up care.
[2022-12-02] MEDS ORDERED: ONDANSETRON 4 MG/2 ML VIAL IV PRN (14:45)
--- NOTE | 2022-12-02 14:49 | NUR ---
Pt. admitted to [facility], [place] , under care of Dr. Tavarez. Belongs List completed. All belongings went with Pt. Refused to change into gown. Pt wanted to stay in wheelchair in her room. Safety measures in place. PHONG khan. Addendum: 12/02/22 at 1457 by ETHAN EDIT: Pt reported feeling nauseous but continued drinking, ignoring staff's recommendation to stop doing so.
--- NOTE | 2022-12-02 15:00 | NUR ---
pt arrived at the unit via wheelchair. all belongings logged.
[2022-12-02] MEDS ORDERED: OXYC-132 PO (16:17)
[2022-12-02] MEDS ORDERED: PRED20TA PO (16:17)
[2022-12-02] MEDS ORDERED: OMEP20CA15 PO (16:18)
[2022-12-02] MEDS ORDERED: LORA-259 PO (16:19)
[2022-12-02] MEDS ORDERED: METF-440 PO (16:20)
[2022-12-02] MEDS ORDERED: ZOLPIDEM 5 MG TABLET PO PRN (16:30)
[2022-12-02] MEDS ORDERED: HYDROCODONE/APAP 5-325MG TABLET PO PRN (16:45)
[2022-12-02] MEDS ORDERED: MEROPENEM 0.5 G in IV NORMAL SALINE 50 ML IV SCH (16:45)
[2022-12-02] MEDS ORDERED: ACETAMINOPHEN 325 MG TABLET PO PRN (16:45)
[2022-12-02] MEDS: ONDANSETRON 4 MG/2 ML VIAL IV PRN (17:35)
[2022-12-02] MEDS: MORPHINE SULFATE 2 MG/1 ML DISP.SYRIN IV PRN ×2 (17:38→22:08)
[2022-12-02] MEDS: MEROPENEM 1 G in IV NORMAL SALINE 100 ML IV SCH (18:30)
[2022-12-02] MEDS: POTASSIUM CHLORIDE 20 MEQ in IV NS 1000 ML 1,000 ML IV PRN (18:30)
--- NOTE | 2022-12-02 19:26 | NUR ---
SHIFT NOTE; PT AOX3. IN NO ACUTE DISTRESS. ON 2L NC FOR COMFORT SATURATING 98-99. AMBULATORY W/ASSIST. PT COMPLAINED OF ABDOMINAL PAIN, PRN MORPHINE WAS GIVEN. PT IS ON CLEAR LIQUID DIET. IV HYDRATION WAS ADMINISTERED. PT STATE NO APPETITE TO EAT OR DRINKS FOR NOW. ALL NEEDS MET. F/U WITH THEOPHYLLINE MED AT HOME. PT STATE SHE WILL ASK HER DAUGHTER TO BRING IT. SAFETY PRECAUTION MAINTAINED. WILL ENDORSED TO NOC SHIFT.
[2022-12-02 20:35] VITALS: BP 110/59
[2022-12-02] MEDS: MONTELUKAST SODIUM 10 MG TABLET PO SCH (20:49)
[2022-12-02] MEDS: ATORVASTATIN 40 MG TABLET PO SCH (20:49)
--- NOTE | 2022-12-02 22:09 | NUR ---
@2049 PATIENT C/O ABDOMINAL PAIN AND STARTED ASKING FOR MORPHINE AN HOUR BEFORE THE DUE TIME. ALTERNATE PAIN MEDICATION OFFERED BUT PATIENT REFUSED TO TAKE . PATIENT STATED " I TAKE MORPHINE EVERYDAY AT HOME AND KNOW THE TIMING". EDUCATED THE PATIENT FOR MEDICATION MANAGEMENT. @2207 PATIENT REQUESTED FOR PAIN MEDICATION FOR PAIN IN ABDOMEN , LEGS AND BACK 06/03. 4MG IV MORPHINE GIVEN. WILL REASSESS THE PATIENT.
[2022-12-02] MEDS: IPRATROPIUM BROMIDE 0.5 MG/2.5 ML NEBU NEB PRN (23:42)
[2022-12-02] MEDS: ALBUTEROL SULFATE 2.5 MG/ 0.5 ML NEBU NEB PRN (23:43)
[2022-12-03] MEDS: ONDANSETRON 4 MG/2 ML VIAL IV PRN (00:55)
--- NOTE | 2022-12-03 00:57 | NUR ---
patient c/o nausea and requested for nausea medication. 4mg Zofran given via iv on right wrist.
[2022-12-03] MEDS: MEROPENEM 1 G in IV NORMAL SALINE 100 ML IV SCH ×3 (01:59→17:11)
--- NOTE | 2022-12-03 02:00 | NUR ---
PATIENT'S IV LINE ON RIGHT WRIST NOTED INFILTRATE. IV LINE REMOVED ON RIGHT WRIST. IV LINE ON LEFT HAND STILL PATENT.
[2022-12-03] MEDS: MORPHINE SULFATE 2 MG/1 ML DISP.SYRIN IV PRN ×2 (03:15→08:14)
[2022-12-03 04:36] VITALS: BP 115/59
[2022-12-03 05:21] LABS: HEMATOCRIT 38.2 % (31.2-41.9); MEAN CORPUSCULAR HEMOGLOBIN 25.9 uug (24.7-32.8); PLATELET COUNT (AUTO) 206 K/uL (179-408)
[2022-12-03 05:51] LABS: BILIRUBIN,TOTAL 0.5 mg/dL (0.2-1.0); CREATININE 0.7 mg/dL (0.6-1.3); MAGNESIUM 1.7 mg/dL (1.8-2.4); PHOSPHOROUS 3.2 mg/dL (2.5-4.9); POTASSIUM 3.4 mmol/L (3.5-5.1); TOTAL PROTEIN, SERUM 5.9 g/dL (6.4-8.2)
[2022-12-03] MEDS: PANTOPRAZOLE SODIUM 40 MG TABLET.DR PO SCH (06:20)
--- NOTE | 2022-12-03 06:35 | NUR ---
PATIENT SLEPT WELL DURING THE SHIFT. V/S WNL. NO SOB OR RESP DISTRESS NOTED. PAIN MEDICATION GIVEN ORDERED AND NOTED EFFECTIVE. IV FLUIDS RUNNING AT 75CC/HR. IV LINE ON LEFT HAND #20G INTACT AND PATENT. NO INFILTRATION, SWELLING OR REDNESS NOTED. ALL NEED MET AND ATTENDED. KEPT CLEAN DRY AND COMFORTABLE. WILL ENDORSE TO DAY SHIFT
[2022-12-03 08:19] VITALS: BP 106/65
[2022-12-03] MEDS: IPRATROPIUM BROMIDE 0.5 MG/2.5 ML NEBU NEB PRN ×3 (08:55→20:49)
[2022-12-03] MEDS: ALBUTEROL SULFATE 2.5 MG/ 0.5 ML NEBU NEB PRN ×3 (08:55→20:49)
[2022-12-03] MEDS: METFORMIN HCL 500 MG TABLET PO SCH (08:58)
[2022-12-03] MEDS: predniSONE 20 MG TABLET PO SCH (08:59)
[2022-12-03] MEDS: ESCITALOPRAM OXALATE 10 MG TABLET PO SCH (08:59)
[2022-12-03] MEDS ORDERED: Medication Not On Formulary EA (Escitalopram Oxalate (Lexapro) 20 MG) PO SCH (09:00)
[2022-12-03] MEDS ORDERED: THEOPHYLLINE ANHYDROUS 400 MG PO SCH (09:00)
[2022-12-03] MEDS: POTASSIUM CHLORIDE 20 MEQ in IV NS 1000 ML 1,000 ML IV PRN (09:24)
--- NOTE | 2022-12-03 10:00 | NUR ---
Rcvd pt in bed. AAOX4. verbalized pain 05/03. No SOB noted. v/s wnl. pt ambulatory going to the bathroom.
[2022-12-03] MEDS ORDERED: POTASSIUM CHLORIDE 20 MEQ TAB.PRT.SR PO ONE (10:15)
[2022-12-03] MEDS: MAGNESIUM SULFATE/D5W 100 ML IV SCH ×2 (10:54→11:52)
[2022-12-03] MEDS: MORPHINE SULFATE 4 MG/1 ML DISP.SYRIN IV PRN ×3 (13:20→22:30)
[2022-12-03 15:38] VITALS: BP 100/73
--- NOTE | 2022-12-03 18:20 | NUR ---
AAOx4. No SOB noted. Pt. verbalized pain 8/10 generalized pain/abdomen. Morphine IV given and pt. tolerated it well. Pt IV left hand intact and patent running 80cc 20%meq KCl. Keep pt. in ATB therapy as ordered. Will continue to monitor.
[2022-12-03 20:00] VITALS: BP 102/78
[2022-12-03] MEDS: MONTELUKAST SODIUM 10 MG TABLET PO SCH (20:26)
[2022-12-03] MEDS: ATORVASTATIN 40 MG TABLET PO SCH (20:26)
--- NOTE | 2022-12-03 22:30 | NUR ---
patient noted with c/o abdominal 06/03 and requested for morphine. morphine 4mg given via iv as ordered.
[2022-12-04] MEDS: MEROPENEM 1 G in IV NORMAL SALINE 100 ML IV SCH ×2 (02:11→09:40)
[2022-12-04] MEDS: MORPHINE SULFATE 4 MG/1 ML DISP.SYRIN IV PRN ×4 (02:48→17:00)
--- NOTE | 2022-12-04 02:48 | NUR ---
patient still complaining of abdominal pain 05/03. morphine 4mg given via iv as ordered q4hrs prn.
[2022-12-04 04:00] VITALS: BP 110/68
[2022-12-04] MEDS: PANTOPRAZOLE SODIUM 40 MG TABLET.DR PO SCH (06:10)
[2022-12-04 06:51] LABS: HEMATOCRIT 36.4 % (31.2-41.9); MEAN CORPUSCULAR HEMOGLOBIN 25.9 uug (24.7-32.8); MEAN CORPUSCULAR VOLUME 81.4 fL (75.5-95.3); PLATELET COUNT (AUTO) 223 K/uL (179-408)
[2022-12-04 07:19] LABS: CREATININE 0.8 mg/dL (0.6-1.3); MAGNESIUM 1.9 mg/dL (1.8-2.4); PHOSPHOROUS 2.4 mg/dL (2.5-4.9); POTASSIUM 3.8 mmol/L (3.5-5.1)
[2022-12-04] MEDS: predniSONE 20 MG TABLET PO SCH (08:02)
[2022-12-04] MEDS: ESCITALOPRAM OXALATE 10 MG TABLET PO SCH (08:02)
[2022-12-04] MEDS: METFORMIN HCL 500 MG TABLET PO SCH (08:02)
[2022-12-04] MEDS: IPRATROPIUM BROMIDE 0.5 MG/2.5 ML NEBU NEB PRN ×3 (09:47→19:48)
[2022-12-04] MEDS: ALBUTEROL SULFATE 2.5 MG/ 0.5 ML NEBU NEB PRN ×3 (09:47→19:47)
[2022-12-04 11:26] VITALS: BP 95/52
[2022-12-04] MEDS ORDERED: NEUTRA PHOS PACKET PO ONE (12:00)
[2022-12-04 15:15] VITALS: BP 123/75
[2022-12-04] MEDS ORDERED: CEFTRIAXONE 2 G in IV DEXTROSE 5% 100 ML IV SCH (18:00)
[2022-12-04] MEDS ORDERED: LEVO500T90 PO (19:45)
[2022-12-04] MEDS ORDERED: METR500T PO (19:45)
--- NOTE | 2022-12-04 20:45 | NUR ---
Patient has a discharge order from Dr Tavarez, discharge patient, going home, picked up by daughter via private car. Patient alert oriented, gave all paper works and instructions regarding new medications and medications to continue, new order meds was sent by md to patient pharmacy of choice. Patient took all belongings, in fair but stable condition.
[2022-12-04] MEDS ORDERED: METRONIDAZOLE 500 MG TABLET PO SCH (22:00)
== END 2022-12-04 20:50 | disposition home or self-care (01) | DRG 248 ==
LOC: ER 09:11 → MEDSURG3 14:37
PROVIDERS: ADMIT Internal Medicine; ATTEND Internal Medicine
DX: A04.9 Bacterial intestinal infection, unspecified (principal); K76.0 Fatty (change of) liver, not elsewhere classified; E66.01 Morbid (severe) obesity due to excess calories; Z68.41 Body mass index [BMI] 40.0-44.9, adult; M79.7 Fibromyalgia; M94.0 Chondrocostal junction syndrome [Tietze]; E87.6 Hypokalemia; E78.5 Hyperlipidemia, unspecified; F17.200 Nicotine dependence, unspecified, uncomplicated; G43.909 Migraine, unspecified, not intractable, without status migrainosus; G89.4 Chronic pain syndrome; I10 Essential (primary) hypertension; J44.9 Chronic obstructive pulmonary disease, unspecified; K44.9 Diaphragmatic hernia without obstruction or gangrene; L30.9 Dermatitis, unspecified; R82.4 Acetonuria; Z87.11 Personal history of peptic ulcer disease; Z88.0 Allergy status to penicillin; R74.01 Elevation of levels of liver transaminase levels; M81.0 Age-related osteoporosis without current pathological fracture; Z20.822 Contact with and (suspected) exposure to COVID-19
CPT/HCPCS: 36415; 71045; 83550; 83690; 83735; 84100; 84484; 85025; 93005; 94640; 94664; A4663; G0378; J0696; J2185; J2270; J2405; J3475; J3480; J3590; J7040; J7512

== ENCOUNTER 2023-06-26 12:47 | Inpatient (IN) | payer OTHER ==
[~2023-06-26] VITALS: Ht 157.5 cm; Wt 99.8 kg
[~2023-06-26 12:47] MED LIST changes: -ALBU8HFA4 INH; -ATOR20TA PO; -CEPH500C2 PO; -CETI-90 PO; -DOXY-326 PO; -FAMO40TA7 PO; -IBUP-1955 PO; +LEVO500T90 PO; -LIDO28.310 TP; -LIDO30AD10 TD; +LORA-259 PO; +METR500T PO; +OMEP20CA15 PO; -ONDA4TAB11 PO; -ONDA4TAB5 PO; -OXYC-128 PO; +OXYC-132 PO
[2023-06-26] MEDS ORDERED: IPRATROPIUM BROMIDE 0.5 MG/2.5 ML NEBU NEB ONE (13:15)
[2023-06-26] MEDS ORDERED: methylPREDNISolone SOD SUCC 125 MG/2 ML VIAL IV ONE (13:15)
[2023-06-26] MEDS ORDERED: MORPHINE SULFATE 2 MG/1 ML DISP.SYRIN IV ONE (13:15)
[2023-06-26] MEDS ORDERED: ALBUTEROL SULFATE 2.5 MG/3 ML NEBU NEB ONE (13:15)
[2023-06-26] MEDS ORDERED: ONDANSETRON 4 MG/2 ML VIAL IV ONE (13:15)
[2023-06-26] MEDS ORDERED: MAGNESIUM SULFATE 2 GM in IV DEXTROSE 5% 100 ML IV ONE (13:15)
[2023-06-26] MEDS ORDERED: IPRATROPIUM BROMIDE 0.5 MG/2.5 ML NEBU ONE (13:23)
[2023-06-26] MEDS ORDERED: ALBUTEROL SULFATE 2.5 MG/3 ML NEBU ONE (13:25)
[2023-06-26 13:44] LABS: BASOPHILS # (AUTO) 0.2 K/UL (0.0-0.2); BASOPHILS % (AUTO) 0.9 % (0.0-2.0); EOSINOPHILS # (AUTO) 0.2 K/uL (0.0-0.7); EOSINOPHILS % (AUTO) 1.1 % (0.0-7.0); HEMATOCRIT 41.3 % (31.2-41.9); HEMOGLOBIN 13.1 g/dL (10.9-14.3); LYMPHOCYTES % (AUTO) 21.2 % (20.5-51.5); MEAN CORPUSCULAR HEMOGLOBIN 25.3 uug (24.7-32.8); MEAN CORPUSCULAR HGB CONC 32 g/dL (32.3-35.6); MEAN CORPUSCULAR VOLUME 79.6 fL (75.5-95.3); MONOCYTES # (AUTO) 1.1 K/uL (0.1-1.30); NEUTROPHILS # (AUTO) 13.4 K/uL (1.8-8.9); NEUTROPHILS % (AUTO) 70.8 % (38.5-71.5); PLATELET COUNT (AUTO) 273 K/uL (179-408); RED BLOOD CELL COUNT(AUTO) 5.19 MIL/uL (3.63-4.92); RED CELL DISTRIBUTION WIDTH 17.9 % (12.3-17.7); WHITE BLOOD COUNT (AUTO) 18.9 K/uL (3.8-11.8)
[2023-06-26 13:48] LABS: DIFFERENTIAL COMMENT 1
[2023-06-26] MEDS ORDERED: AMOX1TAB16 PO (13:51)
[2023-06-26] MEDS ORDERED: MAGNESIUM SULFATE 1 GM/2 ML VIAL ONE (13:55)
[2023-06-26] MEDS ORDERED: methylPREDNISolone SOD SUCC 125 MG/2 ML VIAL ONE (13:56)
[2023-06-26] MEDS ORDERED: MORPHINE SULFATE 4 MG/1 ML DISP.SYRIN ONE (13:56)
[2023-06-26] MEDS ORDERED: ONDANSETRON 4 MG/2 ML VIAL ONE (13:57)
[2023-06-26 14:07] LABS: CALCIUM 9.5 mg/dL (8.5-10.1); CARBON DIOXIDE 28 mmol/L (21-32); CHLORIDE 103 mmol/L (98-107); CREATININE 0.9 mg/dL (0.6-1.3); GLUCOSE 101 mg/dL (74-106); POTASSIUM 3.6 mmol/L (3.5-5.1); SODIUM SERUM 139 mmol/L (136-145); UREA NITROGEN, BLOOD 13 mg/dL (7-18)
[2023-06-26 14:16] LABS: ABG BASE EXCESS 1.7 mmol/L; ABG HCO3 25.6 mmol/L; ABG PH 7.446 (7.350-7.450); ABG PO2 72.3 mmHg (75.0-100.0); ABG SITE LEFT RADIAL; ABG TOTAL HEMOGLOBIN 14.1 G/dL (12.0-16.0); COHb 3.8 % (0.5-1.5); MetHb 0.1 % (0.0-1.5); O2Hb 92.1 % (94.0-97.0); VENT MODE Room Air
[2023-06-26 14:17] VITALS: O2SAT 95
[2023-06-26 14:23] LABS: ALANINE AMINOTRANSFERASE 38 U/L (14-59); ALBUMIN 3.2 g/dL (3.4-5.0); ALKALINE PHOSPHATASE 90 U/L (50-136); ASPARTATE AMINOTRANSFERASE 17 U/L (15-37); BILIRUBIN,DIRECT 0.1 mg/dL (0.0-0.2); BILIRUBIN,TOTAL 0.5 mg/dL (0.2-1.0); NT-PRO BNP 40 pg/mL (0-125)
[2023-06-26] MEDS ORDERED: IOHEXOL 350 100 ML INFUS..BTL ONE (14:37)
[2023-06-26] MEDS ORDERED: SWABABLE VALVE TRANSFER SET EA MC ONE (14:37)
[2023-06-26] MEDS ORDERED: IV NORMAL SALINE 250 ML IV ONE (14:37)
[2023-06-26] MEDS ORDERED: levoFLOXacin 750 MG/D5W 150 ML PIGGYBACK IV ONE (14:45)
[2023-06-26] MEDS ORDERED: levoFLOXacin 750MG/D5W 150 ML IV ONE (15:03)
[2023-06-26 15:20] VITALS: O2SAT 95; O2SAT 98
[2023-06-26] MEDS ORDERED: hydrALAZINE HCL 20 MG/1 ML VIAL IV PRN (15:45)
[2023-06-26] MEDS ORDERED: DEXTROSE 50% 50 ML DISP.SYRIN IV PRN (15:45)
[2023-06-26] MEDS ORDERED: ACETAMINOPHEN 325 MG TABLET PO PRN (15:45)
[2023-06-26] MEDS: ONDANSETRON 4 MG/2 ML VIAL IV PRN (16:41)
[2023-06-26] MEDS: MORPHINE SULFATE 2 MG/1 ML DISP.SYRIN IVP PRN ×2 (16:41→20:54)
[2023-06-26] MEDS: BLOOD SUGAR DIAGNOSTIC 1 EACH STRIP VI SCH (17:15)
[2023-06-26] MEDS: INSULIN REGULAR, HUMAN 300 UNIT/3 ML VIAL SQ PRN (17:30)
[2023-06-26 18:07] LABS: *BILIRUBIN,URIN NEGATIVE (NEGATIVE); *CLARITY,URINE CLEAR (CLEAR); *COLOR,URINE YELLOW (YELLOW); *KETONES,URINE NEGATIVE (NEGATIVE); *PROTEIN,URINE TRACE (NEGATIVE); *UROBILINOGEN,URINE 0.2 E.U./dl (NORMAL); LEUKOCYTE ESTERASE ,URINE NEGATIVE (NEGATIVE); NITRITE, URINE NEGATIVE (NEGATIVE); UGLUCOSE NEGATIVE (NEGATIVE)
[2023-06-26 18:12] LABS: *BLOOD, URINE 1+ (NEGATIVE); RBC,URINE 0-3 /HPF (0-3); WBC,URINE 0-3 /HPF (0-3)
[2023-06-26] MEDS ORDERED: MORPHINE SULFATE 2 MG/1 ML DISP.SYRIN ONE (20:40)
[2023-06-26] MEDS ORDERED: ATORVASTATIN 20 MG TABLET ONE ×2 (21:18→21:22)
[2023-06-26] MEDS: ATORVASTATIN 40 MG TABLET PO SCH (21:23)
[2023-06-27] MEDS ORDERED: CEFEPIME HCL 1 G VIAL ONE ×3 (00:12→14:45)
[2023-06-27] MEDS ORDERED: methylPREDNISolone SOD SUCC 40 MG/ML VIAL ONE ×3 (00:12→12:04)
[2023-06-27] MEDS ORDERED: HEPARIN SODIUM,PORCINE 5,000 UNITS/ML VIAL ONE ×2 (00:12→09:13)
[2023-06-27] MEDS: HEPARIN SODIUM,PORCINE 5,000 UNITS/ML VIAL SQ SCH ×3 (00:14→22:15)
[2023-06-27] MEDS ORDERED: MORPHINE SULFATE IR 30 MG TABLET PO PRN ×2 (00:15→10:45)
[2023-06-27] MEDS: methylPREDNISolone SOD SUCC 40 MG/ML VIAL IV SCH ×3 (00:16→22:23)
[2023-06-27] MEDS: CEFEPIME HCL 1 G in IV DEXTROSE 5% 50 ML IV SCH ×4 (00:16→22:37)
[2023-06-27] MEDS ORDERED: MORPHINE SULFATE 2 MG/1 ML DISP.SYRIN ONE ×4 (01:11→14:47)
[2023-06-27] MEDS ORDERED: INSULIN GLARGINE,HUM 300 UNITS/3 ML CARTRIDGE SQ ONE (01:11)
[2023-06-27] MEDS: BLOOD SUGAR DIAGNOSTIC 1 EACH STRIP VI SCH ×5 (01:13→22:33)
[2023-06-27] MEDS: MORPHINE SULFATE 2 MG/1 ML DISP.SYRIN IVP PRN ×7 (01:15→23:50)
[2023-06-27] MEDS ORDERED: LORAZEPAM 1 MG TABLET PO ONE (02:15)
[2023-06-27] MEDS ORDERED: LORAZEPAM 1 MG TABLET ONE (02:19)
[2023-06-27] MEDS ORDERED: ONDANSETRON 4 MG/2 ML VIAL ONE (06:30)
[2023-06-27] MEDS: ONDANSETRON 4 MG/2 ML VIAL IV PRN (06:31)
[2023-06-27 06:47] LABS: BASOPHILS # (AUTO) 0.1 K/UL (0.0-0.2); BASOPHILS % (AUTO) 0.7 % (0.0-2.0); EOSINOPHILS % (AUTO) 0.1 % (0.0-7.0); HEMATOCRIT 40.1 % (31.2-41.9); HEMOGLOBIN 12.6 g/dL (10.9-14.3); LYMPHOCYTES # (AUTO) 0.7 K/uL (0.8-4.8); MEAN CORPUSCULAR HEMOGLOBIN 25.2 uug (24.7-32.8); MEAN CORPUSCULAR HGB CONC 31 g/dL (32.3-35.6); MONOCYTES # (AUTO) 0.4 K/uL (0.1-1.30); MONOCYTES % (AUTO) 2.1 % (0.0-11.0); NEUTROPHILS # (AUTO) 15.8 K/uL (1.8-8.9); NEUTROPHILS % (AUTO) 93.1 % (38.5-71.5); PLATELET COUNT (AUTO) 315 K/uL (179-408); RED BLOOD CELL COUNT(AUTO) 5.01 MIL/uL (3.63-4.92)
[2023-06-27] MEDS ORDERED: PANTOPRAZOLE SODIUM 40 MG TABLET.DR PO ONE (07:04)
[2023-06-27] MEDS: PANTOPRAZOLE SODIUM 40 MG TABLET.DR PO SCH (07:04)
[2023-06-27 07:05] LABS: DIFFERENTIAL COMMENT 1
[2023-06-27 07:14] LABS: ALBUMIN 3.1 g/dL (3.4-5.0); BILIRUBIN,TOTAL 0.3 mg/dL (0.2-1.0); CALCIUM 9.1 mg/dL (8.5-10.1); PHOSPHOROUS 3.3 mg/dL (2.5-4.9); POTASSIUM 4.5 mmol/L (3.5-5.1)
[2023-06-27] MEDS ORDERED: THEOPHYLLINE ANHYDROUS 400 MG PO SCH ×2 (09:00→10:45)
[2023-06-27] MEDS: FLUTICASONE/VILANTEROL 1 EACH BLST.W.DEV INH SCH (09:00)
[2023-06-27] MEDS ORDERED: LORAZEPAM 1 MG TABLET PO SCH ×2 (09:00)
[2023-06-27] MEDS ORDERED: ESCITALOPRAM OXALATE 10 MG TABLET ONE (09:12)
[2023-06-27] MEDS ORDERED: INSULIN GLARGINE,HUM 300 UNITS/3 ML CARTRIDGE SQ SCH (09:15)
[2023-06-27] MEDS: ESCITALOPRAM OXALATE 10 MG TABLET PO SCH (09:43)
[2023-06-27] MEDS ORDERED: ALBUTEROL SULFATE 2.5 MG/3 ML NEBU ONE (10:08)
[2023-06-27 10:10] VITALS: O2SAT 94
[2023-06-27] MEDS: ALBUTEROL SULFATE 2.5 MG/3 ML NEBU IH PRN ×2 (10:10→22:53)
[2023-06-27 10:25] VITALS: O2SAT 99
[2023-06-27] MEDS ORDERED: methylPREDNISolone SOD SUCC 40 MG/ML VIAL IV SCH (12:00)
[2023-06-27] MEDS: INSULIN REGULAR, HUMAN 300 UNITS/3 ML VIAL SQ PRN ×2 (12:53→22:35)
[2023-06-27] MEDS ORDERED: FAMO20TA8 PO (16:30)
[2023-06-27] MEDS ORDERED: BREZTRI INH (16:37)
[2023-06-27] MEDS: INSULIN REGULAR, HUMAN 300 UNIT/3 ML VIAL SQ PRN (17:52)
[2023-06-27] MEDS ORDERED: MONTELUKAST SODIUM 10 MG TABLET PO SCH (18:00)
[2023-06-27] MEDS ORDERED: LORAZEPAM 1 MG TABLET PO PRN (18:01)
[2023-06-27 18:39] VITALS: BP 120/83; TEMP 98.2; O2SAT 96
[2023-06-27 20:00] VITALS: BP 140/89; TEMP 98.3; O2SAT 99
[2023-06-27] MEDS: ATORVASTATIN 40 MG TABLET PO SCH (22:07)
[2023-06-27] MEDS: INSULIN GLARGINE,HUM 300 UNITS/3 ML CARTRIDGE SQ SCH (22:33)
[2023-06-27 22:53] VITALS: O2SAT 94
[2023-06-27 23:03] VITALS: O2SAT 98
[2023-06-28] VITALS: BP 112/67; TEMP 98.2; O2SAT 6
[2023-06-28] MEDS: ONDANSETRON 4 MG/2 ML VIAL IV PRN (01:33)
[2023-06-28 04:00] VITALS: BP 115/66; TEMP 98.5; O2SAT 6
[2023-06-28] MEDS: MORPHINE SULFATE 2 MG/1 ML DISP.SYRIN IVP PRN ×3 (04:17→12:43)
[2023-06-28] MEDS: methylPREDNISolone SOD SUCC 40 MG/ML VIAL IV SCH (06:24)
[2023-06-28] MEDS: CEFEPIME HCL 1 G in IV DEXTROSE 5% 50 ML IV SCH (06:25)
[2023-06-28] MEDS: PANTOPRAZOLE SODIUM 40 MG TABLET.DR PO SCH (06:25)
[2023-06-28] MEDS: BLOOD SUGAR DIAGNOSTIC 1 EACH STRIP VI SCH ×2 (06:32→11:52)
[2023-06-28 07:06] LABS: BASOPHILS % (AUTO) 0.1 % (0.0-2.0); HEMATOCRIT 38.3 % (31.2-41.9); HEMOGLOBIN 12.2 g/dL (10.9-14.3); LYMPHOCYTES # (AUTO) 1.2 K/uL (0.8-4.8); LYMPHOCYTES % (AUTO) 5.6 % (20.5-51.5); MEAN CORPUSCULAR HEMOGLOBIN 25.4 uug (24.7-32.8); MEAN CORPUSCULAR HGB CONC 32 g/dL (32.3-35.6); MEAN CORPUSCULAR VOLUME 80.1 fL (75.5-95.3); MONOCYTES # (AUTO) 0.6 K/uL (0.1-1.30); MONOCYTES % (AUTO) 2.8 % (0.0-11.0); NEUTROPHILS # (AUTO) 20.2 K/uL (1.8-8.9); NEUTROPHILS % (AUTO) 91.5 % (38.5-71.5); PLATELET COUNT (AUTO) 298 K/uL (179-408); RED BLOOD CELL COUNT(AUTO) 4.78 MIL/uL (3.63-4.92); RED CELL DISTRIBUTION WIDTH 17.7 % (12.3-17.7); WHITE BLOOD COUNT (AUTO) 22.1 K/uL (3.8-11.8)
[2023-06-28 07:16] LABS: DIFFERENTIAL COMMENT 1
[2023-06-28 08:00] VITALS: BP 121/67; TEMP 98; O2SAT 96
[2023-06-28] MEDS: INSULIN REGULAR, HUMAN 300 UNIT/3 ML VIAL SQ PRN ×2 (08:07→11:51)
[2023-06-28] MEDS: ESCITALOPRAM OXALATE 10 MG TABLET PO SCH (08:36)
[2023-06-28] MEDS: HEPARIN SODIUM,PORCINE 5,000 UNITS/ML VIAL SQ SCH (08:37)
[2023-06-28] MEDS: INSULIN GLARGINE,HUM 300 UNITS/3 ML CARTRIDGE SQ SCH (08:38)
[2023-06-28] MEDS: FLUTICASONE/VILANTEROL 1 EACH BLST.W.DEV INH SCH (08:45)
[2023-06-28 11:33] VITALS: BP 129/60; TEMP 98.5; O2SAT 99
[2023-06-28] MEDS ORDERED: LEVO750T46 PO (11:34)
== END 2023-06-28 13:00 | disposition home or self-care (01) | DRG 140 ==
LOC: ER 12:47 → TRANSITION 15:39 → UNDOADMIN 15:39 → TELE3 06-27 17:47
PROVIDERS: ADMIT Internal Medicine; ATTEND Internal Medicine
DX: J44.1 Chronic obstructive pulmonary disease with (acute) exacerbation (principal); J96.20 Acute and chronic respiratory failure, unspecified whether with hypoxia or hypercapnia; J45.901 Unspecified asthma with (acute) exacerbation; K76.0 Fatty (change of) liver, not elsewhere classified; E11.9 Type 2 diabetes mellitus without complications; D72.828 Other elevated white blood cell count; E66.01 Morbid (severe) obesity due to excess calories; Z99.81 Dependence on supplemental oxygen; J98.11 Atelectasis; Z87.440 Personal history of urinary (tract) infections; Z91.81 History of falling; Z68.41 Body mass index [BMI] 40.0-44.9, adult; S49.81XA Other specified injuries of right shoulder and upper arm, initial encounter; W19.XXXA Unspecified fall, initial encounter; Y93.9 Activity, unspecified; M84.48XD Pathological fracture, other site, subsequent encounter for fracture with routine healing; T38.0X5A Adverse effect of glucocorticoids and synthetic analogues, initial encounter; Y92.009 Unspecified place in unspecified non-institutional (private) residence as the place of occurrence of the external cause
CPT/HCPCS: 36415; 36600; 71045; 71275; 73030; 82803; 83605; 83690; 84100; 84484; 85025; 87040; 93005; 94640; 94760; A4663; G0378; J0692; J1644; J1815; J1956; J2270; J2405; J2920; J2930; J3475; J3590; J7040; Q9967

== ENCOUNTER 2023-08-28 13:27 | Emergency (ER) | payer OTHER ==
[~2023-08-28] VITALS: Ht 157.5 cm; Wt 99.8 kg
[~2023-08-28 13:27] MED LIST changes: +BREZTRI INH; +FAMO20TA8 PO; -LEVO500T90 PO; +LEVO750T46 PO; -METF-440 PO; -METR500T PO
[2023-08-28 13:54] VITALS: O2SAT 95
[2023-08-28 14:17] LABS: BASOPHILS # (AUTO) 0.1 K/UL (0.0-0.2); BASOPHILS % (AUTO) 1.1 % (0.0-2.0); EOSINOPHILS # (AUTO) 0.3 K/uL (0.0-0.7); EOSINOPHILS % (AUTO) 2.4 % (0.0-7.0); HEMATOCRIT 36.2 % (31.2-41.9); HEMOGLOBIN 11.1 g/dL (10.9-14.3); LYMPHOCYTES # (AUTO) 0.9 K/uL (0.8-4.8); LYMPHOCYTES % (AUTO) 7.9 % (20.5-51.5); MEAN CORPUSCULAR HEMOGLOBIN 25.1 uug (24.7-32.8); MEAN CORPUSCULAR HGB CONC 31 g/dL (32.3-35.6); MEAN CORPUSCULAR VOLUME 81.4 fL (75.5-95.3); MONOCYTES # (AUTO) 0.3 K/uL (0.1-1.30); MONOCYTES % (AUTO) 2.6 % (0.0-11.0); NEUTROPHILS # (AUTO) 10.1 K/uL (1.8-8.9); PLATELET COUNT (AUTO) 270 K/uL (179-408); RED BLOOD CELL COUNT(AUTO) 4.44 MIL/uL (3.63-4.92); RED CELL DISTRIBUTION WIDTH 18.3 % (12.3-17.7); WHITE BLOOD COUNT (AUTO) 11.8 K/uL (3.8-11.8)
[2023-08-28] MEDS ORDERED: predniSONE 10 MG TABLET PO ONE (14:30)
[2023-08-28] MEDS ORDERED: IPRATROPIUM BROMIDE 0.5 MG/2.5 ML NEBU NEB ONE (14:30)
[2023-08-28] MEDS ORDERED: ALBUTEROL SULFATE 2.5 MG/3 ML NEBU NEB ONE (14:30)
[2023-08-28] MEDS ORDERED: predniSONE 20 MG TABLET ONE (14:35)
[2023-08-28 14:42] LABS: ABG HCO3 24.8 mmol/L (22.0-26.0); ABG PCO2 41.2 mmHg (35.0-48.0); ABG PH 7.398 (7.340-7.440); ABG PO2 66.1 mmHg (75.0-100.0); ABG SITE RIGHT RADIAL; ABG TOTAL HEMOGLOBIN 12.4 G/dL (12.0-16.0); AaDO2 93.1 mmHg; COHb 1.5 % (0.0-3.9); MetHb 0.1 % (0.0-1.5); O2Hb 90.9 % (94.0-97.0)
[2023-08-28 14:46] LABS: DIFFERENTIAL COMMENT 1
[2023-08-28] MEDS ORDERED: IPRATROPIUM BROMIDE 0.5 MG/2.5 ML NEBU ONE (14:46)
[2023-08-28] MEDS ORDERED: ALBUTEROL SULFATE 2.5 MG/ 0.5 ML NEBU ONE (14:46)
[2023-08-28] MEDS ORDERED: ALBUTEROL SULFATE 2.5 MG/3 ML NEBU ONE (14:53)
[2023-08-28 14:55] LABS: CALCIUM 9.4 mg/dL (8.5-10.1); CARBON DIOXIDE 27 mmol/L (21-32); CHLORIDE 105 mmol/L (98-107); CREATININE 0.7 mg/dL (0.6-1.3); GLUCOSE 142 mg/dL (74-106); POTASSIUM 3.9 mmol/L (3.5-5.1); SODIUM SERUM 142 mmol/L (136-145); UREA NITROGEN, BLOOD 11 mg/dL (7-18)
[2023-08-28 15:15] LABS: ALANINE AMINOTRANSFERASE 51 U/L (14-59); ALBUMIN 3.4 g/dL (3.4-5.0); ALKALINE PHOSPHATASE 80 U/L (50-136); ASPARTATE AMINOTRANSFERASE 27 U/L (15-37); BILIRUBIN,DIRECT 0.1 mg/dL (0.0-0.2); BILIRUBIN,TOTAL 0.2 mg/dL (0.2-1.0); NT-PRO BNP 354 pg/mL (0-125); TOTAL PROTEIN, SERUM 6.4 g/dL (6.4-8.2)
[2023-08-28] MEDS ORDERED: HYDROCODONE/APAP 5-325MG TABLET ONE (16:19)
[2023-08-28 16:25] LABS: *BILIRUBIN,URIN NEGATIVE (NEGATIVE); *BLOOD, URINE NEGATIVE (NEGATIVE); *CLARITY,URINE CLEAR (CLEAR); *COLOR,URINE YELLOW (YELLOW); *KETONES,URINE NEGATIVE (NEGATIVE); *PROTEIN,URINE NEGATIVE (NEGATIVE); *UROBILINOGEN,URINE 0.2 E.U./dl (NORMAL); LEUKOCYTE ESTERASE ,URINE TRACE (NEGATIVE); NITRITE, URINE POSITIVE (NEGATIVE); PH,URINE 5.5 (5.0-8.0); UGLUCOSE NEGATIVE (NEGATIVE)
[2023-08-28] MEDS ORDERED: HYDROCODONE/APAP 5-325MG TABLET PO ONE (16:30)
[2023-08-28 16:51] LABS: BACTERIA,URINE FEW /HPF (NONE SEEN); RBC,URINE 0-3 /HPF (0-3)
[2023-08-28] MEDS ORDERED: LEVO750T46 PO (18:04)
[2023-08-28] MEDS ORDERED: LIDO30AD10 TP (18:04)
[2023-08-28] MEDS ORDERED: PRED20TA PO (18:04)
== END 2023-08-28 18:20 | disposition home or self-care (01) ==
LOC: ER 13:27
DX: J44.1 Chronic obstructive pulmonary disease with (acute) exacerbation (principal); J20.9 Acute bronchitis, unspecified; R07.89 Other chest pain; N39.0 Urinary tract infection, site not specified; E78.5 Hyperlipidemia, unspecified; E11.9 Type 2 diabetes mellitus without complications; F17.210 Nicotine dependence, cigarettes, uncomplicated; Z88.0 Allergy status to penicillin; Z88.1 Allergy status to other antibiotic agents; Z88.8 Allergy status to other drugs, medicaments and biological substances; Z91.040 Latex allergy status; Z91.013 Allergy to seafood; Z79.2 Long term (current) use of antibiotics; Z79.899 Other long term (current) drug therapy; Z20.822 Contact with and (suspected) exposure to COVID-19
CPT/HCPCS: 99285; 71045; 87426; 87804 ×2; 80076; 80048; 81001; 83880; 85025; 84484; 36415; 93005; 94640; 82803; 87420; 36600 ×2; 94644; J7512; A4606; A4663; J3590

== ENCOUNTER 2023-10-11 11:57 | Inpatient (IN) | payer OTHER ==
[~2023-10-11] VITALS: Ht 157.5 cm; Wt 91.2 kg
[~2023-10-11 11:57] MED LIST changes: +LIDO30AD10 TP
[2023-10-11] MEDS ORDERED: ALBUTEROL SULFATE 2.5 MG/3 ML NEBU NEB ONE (12:15)
[2023-10-11] MEDS ORDERED: ALBUTEROL SULFATE 2.5 MG/3 ML NEBU ONE (12:20)
[2023-10-11 12:22] VITALS: O2SAT 94
[2023-10-11 12:26] LABS: BASOPHILS # (AUTO) 0.1 K/UL (0.0-0.2); BASOPHILS % (AUTO) 1.2 % (0.0-2.0); EOSINOPHILS # (AUTO) 0.2 K/uL (0.0-0.7); EOSINOPHILS % (AUTO) 1.4 % (0.0-7.0); HEMATOCRIT 38.8 % (31.2-41.9); HEMOGLOBIN 12.2 g/dL (10.9-14.3); LYMPHOCYTES # (AUTO) 3.3 K/uL (0.8-4.8); LYMPHOCYTES % (AUTO) 26.9 % (20.5-51.5); MEAN CORPUSCULAR HEMOGLOBIN 25.5 uug (24.7-32.8); MEAN CORPUSCULAR HGB CONC 32 g/dL (32.3-35.6); MEAN CORPUSCULAR VOLUME 80.8 fL (75.5-95.3); MONOCYTES % (AUTO) 8.3 % (0.0-11.0); NEUTROPHILS # (AUTO) 7.7 K/uL (1.8-8.9); NEUTROPHILS % (AUTO) 62.2 % (38.5-71.5); PLATELET COUNT (AUTO) 334 K/uL (179-408); RED CELL DISTRIBUTION WIDTH 17.6 % (12.3-17.7); WHITE BLOOD COUNT (AUTO) 12.4 K/uL (3.8-11.8)
[2023-10-11 12:35] LABS: DIFFERENTIAL COMMENT 1
[2023-10-11 12:37] VITALS: O2SAT 99
[2023-10-11 12:39] LABS: CALCIUM 9.5 mg/dL (8.5-10.1); CREATININE 0.8 mg/dL (0.6-1.3)
[2023-10-11 12:55] LABS: ALBUMIN 3.1 g/dL (3.4-5.0); BILIRUBIN,TOTAL 0.2 mg/dL (0.2-1.0); TOTAL PROTEIN, SERUM 6.8 g/dL (6.4-8.2)
[2023-10-11] MEDS ORDERED: ONDANSETRON ODT 4 MG TAB.RAPDIS SL ONE (14:15)
[2023-10-11] MEDS ORDERED: MORPHINE SULFATE 4 MG/1 ML DISP.SYRIN IV ONE (14:15)
[2023-10-11] MEDS ORDERED: ONDANSETRON 4 MG/2 ML VIAL IV ONE ×2 (14:15→18:45)
[2023-10-11] MEDS ORDERED: MORPHINE SULFATE 4 MG/1 ML DISP.SYRIN IM ONE (14:15)
[2023-10-11] MEDS ORDERED: ONDANSETRON ODT 4 MG TAB.RAPDIS ONE (14:21)
[2023-10-11] MEDS ORDERED: MORPHINE SULFATE 4 MG/1 ML DISP.SYRIN ONE (14:22)
[2023-10-11] MEDS ORDERED: levoFLOXacin 500 MG/D5W 100ML PIGGYBACK IV ONE (17:00)
[2023-10-11] MEDS ORDERED: levoFLOXacin 500 MG/D5W 100 ML ONE (17:57)
[2023-10-11 18:14] LABS: *BILIRUBIN,URIN NEGATIVE (NEGATIVE); *BLOOD, URINE NEGATIVE (NEGATIVE); *CLARITY,URINE SLIGHTLY CLOUDY (CLEAR); *COLOR,URINE YELLOW (YELLOW); *KETONES,URINE NEGATIVE (NEGATIVE); *PROTEIN,URINE NEGATIVE (NEGATIVE); *UROBILINOGEN,URINE 0.2 E.U./dl (NORMAL); LEUKOCYTE ESTERASE ,URINE NEGATIVE (NEGATIVE); NITRITE, URINE POSITIVE (NEGATIVE); PH,URINE 5.5 (5.0-8.0); UGLUCOSE NEGATIVE (NEGATIVE)
[2023-10-11 18:43] LABS: BACTERIA,URINE MANY /HPF (NONE SEEN); RBC,URINE NONE SEEN /HPF (0-3)
[2023-10-11 18:44] LABS: SQUAMOUS EPITHELIAL CELL,UR MODERATE /HPF (NONE SEEN)
[2023-10-11] MEDS ORDERED: MORPHINE SULFATE 2 MG/1 ML DISP.SYRIN IV ONE (18:45)
[2023-10-11] MEDS ORDERED: ONDANSETRON 4 MG/2 ML VIAL ONE (19:09)
[2023-10-11] MEDS ORDERED: MORPHINE SULFATE 2 MG/1 ML DISP.SYRIN ONE (19:10)
[2023-10-11 22:02] VITALS: BP 122/83; TEMP 98.5; O2SAT 96
[2023-10-11] MEDS ORDERED: ACETAMINOPHEN 325 MG TABLET PO PRN (23:45)
[2023-10-11] MEDS ORDERED: ONDANSETRON 4 MG/2 ML VIAL IV PRN (23:45)
[2023-10-12] VITALS (10 sets, daily range): BP systolic 123–147; BP diastolic 68–97; TEMP 97.8–98.8; O2SAT 94–99
[2023-10-12] MEDS: MORPHINE SULFATE 2 MG/1 ML DISP.SYRIN IV PRN ×5 (00:31→20:07)
[2023-10-12] MEDS ORDERED: MEROPENEM 1GM/NS 100ML IVPB **ER PYXIS ONLY IV ONE (00:41)
[2023-10-12] MEDS ORDERED: VANCOMYCIN 1000 MG VIAL ONE (00:42)
[2023-10-12] MEDS: ALBUTEROL SULFATE 2.5 MG/ 0.5 ML NEBU NEB PRN ×2 (00:45→13:45)
[2023-10-12] MEDS ORDERED: MEROPENEM 1 G in IV NORMAL SALINE 100 ML IV ONE (01:00)
[2023-10-12] MEDS ORDERED: VANCOMYCIN IV 2,000 MG in IV DEXTROSE 5% 500 ML IV ONE (02:00)
[2023-10-12] MEDS ORDERED: MEROPENEM 1 G in IV NORMAL SALINE 100 ML IV SCH (06:00)
[2023-10-12] MEDS: PANTOPRAZOLE SODIUM 40 MG TABLET.DR PO SCH (06:22)
[2023-10-12 07:23] LABS: BASOPHILS # (AUTO) 0.1 K/UL (0.0-0.2); EOSINOPHILS # (AUTO) 0.2 K/uL (0.0-0.7); EOSINOPHILS % (AUTO) 2.1 % (0.0-7.0); HEMATOCRIT 36.7 % (31.2-41.9); HEMOGLOBIN 11.8 g/dL (10.9-14.3); LYMPHOCYTES # (AUTO) 3.9 K/uL (0.8-4.8); MEAN CORPUSCULAR HEMOGLOBIN 25.9 uug (24.7-32.8); MEAN CORPUSCULAR HGB CONC 32 g/dL (32.3-35.6); MEAN CORPUSCULAR VOLUME 80.6 fL (75.5-95.3); MONOCYTES # (AUTO) 0.7 K/uL (0.1-1.30); MONOCYTES % (AUTO) 8.3 % (0.0-11.0); NEUTROPHILS # (AUTO) 3.8 K/uL (1.8-8.9); NEUTROPHILS % (AUTO) 43.6 % (38.5-71.5); PLATELET COUNT (AUTO) 293 K/uL (179-408); RED BLOOD CELL COUNT(AUTO) 4.55 MIL/uL (3.63-4.92); RED CELL DISTRIBUTION WIDTH 17.9 % (12.3-17.7); WHITE BLOOD COUNT (AUTO) 8.7 K/uL (3.8-11.8)
[2023-10-12 07:27] LABS: DIFFERENTIAL COMMENT 1
[2023-10-12 07:37] LABS: ALBUMIN 2.7 g/dL (3.4-5.0); BILIRUBIN,TOTAL 0.2 mg/dL (0.2-1.0); CALCIUM 8.4 mg/dL (8.5-10.1); CREATININE 0.8 mg/dL (0.6-1.3); MAGNESIUM 1.9 mg/dL (1.8-2.4); PHOSPHOROUS 4.4 mg/dL (2.5-4.9); POTASSIUM 3.5 mmol/L (3.5-5.1); TOTAL PROTEIN, SERUM 6.2 g/dL (6.4-8.2)
[2023-10-12 07:52] LABS: THYROID STIMULATING HORMONE 3.65 mIU/mL (0.358-3.740)
[2023-10-12] MEDS: MEROPENEM 1 G in IV NORMAL SALINE 100 ML IV SCH ×2 (08:37→16:57)
[2023-10-12] MEDS: FUROSEMIDE 40 MG/4 ML VIAL IV SCH (08:37)
[2023-10-12] MEDS ORDERED: ENOXAPARIN SODIUM 40 MG/0.4 ML DISP.SYRIN SQ SCH (11:00)
[2023-10-12] MEDS ORDERED: ZOLPIDEM 5 MG TABLET PO PRN (12:45)
[2023-10-12] MEDS ORDERED: Medication Not On Formulary EA (Omeprazole 20 MG) PO SCH (12:45)
[2023-10-12] MEDS ORDERED: HOME MED MISCELLANEOUS XX SCH (12:45)
[2023-10-12] MEDS ORDERED: THEOPHYLLINE ANHYDROUS 400 MG PO SCH (12:45)
[2023-10-12] MEDS ORDERED: ALBUTEROL SULFATE 1.25 MG/3 ML NEBU NEB PRN (13:00)
[2023-10-12] MEDS: MONTELUKAST SODIUM 10 MG TABLET PO SCH (13:53)
[2023-10-12] MEDS: ESCITALOPRAM OXALATE 10 MG TABLET PO SCH (15:22)
[2023-10-12] MEDS: predniSONE 20 MG TABLET PO SCH (17:35)
[2023-10-12] MEDS: METFORMIN HCL 500 MG TABLET PO SCH (17:36)
[2023-10-12] MEDS ORDERED: ATORVASTATIN 40 MG TABLET PO SCH (21:00)
[2023-10-12] MEDS ORDERED: FAMOTIDINE 20 MG TABLET PO SCH (21:00)
[2023-10-12] MEDS ORDERED: VANCOMYCIN IV 1,500 MG in IV DEXTROSE 5% 500 ML IV SCH (21:00)
[2023-10-12] MEDS ORDERED: CEFEPIME HCL 1 G VIAL ONE (22:05)
[2023-10-12] MEDS: CEFEPIME HCL 1 G in IV DEXTROSE 5% 50 ML IV SCH (22:28)
[2023-10-13] VITALS (7 sets, daily range): BP systolic 116–118; BP diastolic 80–84; TEMP 98.1–98.2; O2SAT 94–99
[2023-10-13] MEDS: MORPHINE SULFATE 2 MG/1 ML DISP.SYRIN IV PRN ×4 (00:04→14:41)
[2023-10-13] MEDS: IPRATROPIUM BROMIDE 0.5 MG/2.5 ML NEBU NEB PRN ×2 (01:25→14:32)
[2023-10-13] MEDS: ALBUTEROL SULFATE 2.5 MG/ 0.5 ML NEBU NEB PRN ×2 (01:25→14:32)
[2023-10-13] MEDS: PANTOPRAZOLE SODIUM 40 MG TABLET.DR PO SCH (06:25)
[2023-10-13 07:51] LABS: BASOPHILS % (AUTO) 0.4 % (0.0-2.0); EOSINOPHILS # (AUTO) 0.1 K/uL (0.0-0.7); EOSINOPHILS % (AUTO) 1.2 % (0.0-7.0); HEMATOCRIT 38.5 % (31.2-41.9); HEMOGLOBIN 12.3 g/dL (10.9-14.3); LYMPHOCYTES # (AUTO) 2.3 K/uL (0.8-4.8); LYMPHOCYTES % (AUTO) 23.1 % (20.5-51.5); MEAN CORPUSCULAR HEMOGLOBIN 25.8 uug (24.7-32.8); MEAN CORPUSCULAR HGB CONC 32 g/dL (32.3-35.6); MEAN CORPUSCULAR VOLUME 80.9 fL (75.5-95.3); MONOCYTES # (AUTO) 0.7 K/uL (0.1-1.30); MONOCYTES % (AUTO) 7.1 % (0.0-11.0); NEUTROPHILS # (AUTO) 6.7 K/uL (1.8-8.9); NEUTROPHILS % (AUTO) 68.2 % (38.5-71.5); PLATELET COUNT (AUTO) 313 K/uL (179-408); RED BLOOD CELL COUNT(AUTO) 4.76 MIL/uL (3.63-4.92); RED CELL DISTRIBUTION WIDTH 17.7 % (12.3-17.7); WHITE BLOOD COUNT (AUTO) 9.9 K/uL (3.8-11.8)
[2023-10-13] MEDS: CEFEPIME HCL 1 G in IV DEXTROSE 5% 50 ML IV SCH (08:04)
[2023-10-13 08:05] LABS: CALCIUM 9.1 mg/dL (8.5-10.1); CREATININE 0.8 mg/dL (0.6-1.3); MAGNESIUM 2.1 mg/dL (1.8-2.4); PHOSPHOROUS 3.9 mg/dL (2.5-4.9); POTASSIUM 4.3 mmol/L (3.5-5.1)
[2023-10-13 08:19] LABS: DIFFERENTIAL COMMENT 1
[2023-10-13] MEDS: METFORMIN HCL 500 MG TABLET PO SCH (08:53)
[2023-10-13] MEDS: ESCITALOPRAM OXALATE 10 MG TABLET PO SCH (08:53)
[2023-10-13] MEDS: predniSONE 20 MG TABLET PO SCH (08:53)
[2023-10-13] MEDS: MONTELUKAST SODIUM 10 MG TABLET PO SCH (08:54)
[2023-10-13] MEDS: FUROSEMIDE 40 MG/4 ML VIAL IV SCH (08:55)
[2023-10-13] MEDS ORDERED: APIXABAN 5 MG TABLET PO SCH (09:00)
[2023-10-13] MEDS ORDERED: APIX5TAB PO (13:46)
[2023-10-13] MEDS ORDERED: METF-440 PO (13:46)
[2023-10-13] MEDS ORDERED: CIPR-263 PO (13:46)
[2023-10-13] MEDS ORDERED: CEFEPIME HCL 1 G in IV DEXTROSE 5% 50 ML IV SCH (14:00)
== END 2023-10-13 15:45 | disposition home or self-care (01) | DRG 383 ==
LOC: ER 11:57 → TELE3 20:51 → MEDSURG3 22:27 → TELE3 22:37
PROVIDERS: ADMIT Internal Medicine; ATTEND Nurse Practitioner Acute Care
DX: L03.116 Cellulitis of left lower limb (principal); D68.59 Other primary thrombophilia; E87.20 Acidosis, unspecified; E44.0 Moderate protein-calorie malnutrition; I50.30 Unspecified diastolic (congestive) heart failure; E88.09 Other disorders of plasma-protein metabolism, not elsewhere classified; J44.1 Chronic obstructive pulmonary disease with (acute) exacerbation; J45.901 Unspecified asthma with (acute) exacerbation; N39.0 Urinary tract infection, site not specified; Z99.81 Dependence on supplemental oxygen; E66.01 Morbid (severe) obesity due to excess calories; Z68.36 Body mass index [BMI] 36.0-36.9, adult; G89.4 Chronic pain syndrome; M79.7 Fibromyalgia; M81.0 Age-related osteoporosis without current pathological fracture; E11.9 Type 2 diabetes mellitus without complications; E78.5 Hyperlipidemia, unspecified; Z86.711 Personal history of pulmonary embolism; Z86.718 Personal history of other venous thrombosis and embolism; Z87.11 Personal history of peptic ulcer disease; Z88.0 Allergy status to penicillin; Z88.1 Allergy status to other antibiotic agents; Z72.0 Tobacco use; R09.02 Hypoxemia
CPT/HCPCS: 36415; 71045; 73562; 83605; 83735; 84100; 84443; 84484; 84550; 85025; 87040; 93005; 93307; 94640; 94760; A4663; G0378; J0692; J1650; J1940; J1956; J2185; J2270; J2405; J3370; J3590; J7060; J7512; Q0162

== ENCOUNTER 2023-11-06 15:46 | Inpatient (IN) | payer OTHER ==
[~2023-11-06] VITALS: Ht 157.5 cm; Wt 85.3 kg
[~2023-11-06 15:46] MED LIST changes: +APIX5TAB PO; +CIPR-263 PO; -LEVO750T46 PO; +METF-440 PO; -MORP15TA PO; -OXYC-132 PO
[2023-11-06 16:58] LABS: BASOPHILS # (AUTO) 0.1 K/UL (0.0-0.2); BASOPHILS % (AUTO) 0.7 % (0.0-2.0); EOSINOPHILS # (AUTO) 0.4 K/uL (0.0-0.7); HEMATOCRIT 40.4 % (31.2-41.9); HEMOGLOBIN 12.7 g/dL (10.9-14.3); LYMPHOCYTES # (AUTO) 3.1 K/uL (0.8-4.8); LYMPHOCYTES % (AUTO) 31.2 % (20.5-51.5); MEAN CORPUSCULAR HEMOGLOBIN 25.3 uug (24.7-32.8); MEAN CORPUSCULAR HGB CONC 32 g/dL (32.3-35.6); MEAN CORPUSCULAR VOLUME 80.3 fL (75.5-95.3); MONOCYTES # (AUTO) 0.7 K/uL (0.1-1.30); MONOCYTES % (AUTO) 7.5 % (0.0-11.0); NEUTROPHILS # (AUTO) 5.6 K/uL (1.8-8.9); NEUTROPHILS % (AUTO) 56.6 % (38.5-71.5); PLATELET COUNT (AUTO) 284 K/uL (179-408); RED BLOOD CELL COUNT(AUTO) 5.03 MIL/uL (3.63-4.92); RED CELL DISTRIBUTION WIDTH 17.4 % (12.3-17.7); WHITE BLOOD COUNT (AUTO) 9.9 K/uL (3.8-11.8)
[2023-11-06] MEDS ORDERED: FAMOTIDINE. 20 MG/2 ML VIAL IV ONE (16:58)
[2023-11-06] MEDS ORDERED: LIDOCAINE VISCUS 2% 15 ML UDC ONE (16:58)
[2023-11-06] MEDS ORDERED: MAG HYDROX/AL HYDROX/SIMETH 30 ML LIQUID UDC ONE (16:58)
[2023-11-06] MEDS: FAMOTIDINE. 20 MG/2 ML VIAL IV ONE (17:00)
[2023-11-06] MEDS: LIDOCAINE VISCUS 2% 15 ML UDC MM ONE (17:00)
[2023-11-06] MEDS: MAG HYDROX/AL HYDROX/SIMETH 30 ML LIQUID UDC PO ONE (17:00)
[2023-11-06] MEDS: IPRATROPIUM BROMIDE 0.5 MG/2.5 ML NEBU NEB ONE (17:01)
[2023-11-06] MEDS: ALBUTEROL SULFATE 2.5 MG/3 ML NEBU NEB ONE (17:01)
[2023-11-06 17:04] LABS: DIFFERENTIAL COMMENT 1
[2023-11-06 17:05] VITALS: O2SAT 94
[2023-11-06] MEDS ORDERED: ALBUTEROL SULFATE 2.5 MG/3 ML NEBU ONE (17:05)
[2023-11-06] MEDS ORDERED: IPRATROPIUM BROMIDE 0.5 MG/2.5 ML NEBU ONE (17:06)
[2023-11-06 17:10] LABS: CALCIUM 9.2 mg/dL (8.5-10.1); CARBON DIOXIDE 27 mmol/L (21-32); CHLORIDE 105 mmol/L (98-107); CREATININE 0.8 mg/dL (0.6-1.3); GLUCOSE 112 mg/dL (74-106); POTASSIUM 3.4 mmol/L (3.5-5.1); SODIUM SERUM 142 mmol/L (136-145); UREA NITROGEN, BLOOD 12 mg/dL (7-18)
[2023-11-06 17:25] LABS: ALANINE AMINOTRANSFERASE 50 U/L (14-59); ALBUMIN 3.2 g/dL (3.4-5.0); ALKALINE PHOSPHATASE 85 U/L (50-136); ASPARTATE AMINOTRANSFERASE 38 U/L (15-37); BILIRUBIN,DIRECT 0.1 mg/dL (0.0-0.2); BILIRUBIN,TOTAL 0.4 mg/dL (0.2-1.0); NT-PRO BNP 48 pg/mL (0-125); TOTAL PROTEIN, SERUM 6.9 g/dL (6.4-8.2)
[2023-11-06] MEDS ORDERED: ONDANSETRON 4 MG/2 ML VIAL ONE (17:51)
[2023-11-06] MEDS ORDERED: MORPHINE SULFATE 4 MG/1 ML DISP.SYRIN ONE ×2 (17:52→20:31)
[2023-11-06] MEDS: ONDANSETRON 4 MG/2 ML VIAL IV ONE (17:55)
[2023-11-06] MEDS: MORPHINE SULFATE 4 MG/1 ML DISP.SYRIN IV ONE ×2 (17:59→20:50)
[2023-11-06 18:05] VITALS: O2SAT 99
[2023-11-06] MEDS ORDERED: methylPREDNISolone SOD SUCC 125 MG/2 ML VIAL ONE (18:12)
[2023-11-06] MEDS ORDERED: MAGNESIUM SULFATE/D5W 100 ML ONE ×2 (18:13→19:03)
[2023-11-06] MEDS: methylPREDNISolone SOD SUCC 125 MG/2 ML VIAL IV ONE (18:19)
[2023-11-06] MEDS: MAGNESIUM SULFATE 2 GM in IV DEXTROSE 5% 100 ML IV ONE (18:21)
[2023-11-06] MEDS: MAGNESIUM SULFATE/D5W 100 ML IV SCH (18:45)
[2023-11-06] MEDS ORDERED: TEMAZEPAM 15 MG CAPSULE PO PRN (20:45)
[2023-11-06] MEDS ORDERED: INSULIN REGULAR, HUMAN 300 UNIT/3 ML VIAL SQ PRN (20:45)
[2023-11-06] MEDS ORDERED: ACETAMINOPHEN 325 MG TABLET PO PRN (20:45)
[2023-11-06] MEDS ORDERED: HYDROCODONE/APAP 5-325MG TABLET PO PRN (20:45)
[2023-11-06] MEDS ORDERED: DEXTROSE 50% 50 ML DISP.SYRIN IV PRN (20:45)
[2023-11-06] MEDS ORDERED: ALBUTEROL SULFATE 2.5 MG/3 ML NEBU NEB PRN (20:45)
[2023-11-06] MEDS ORDERED: ONDANSETRON 4 MG/2 ML VIAL IV PRN (20:45)
[2023-11-06] MEDS ORDERED: IPRATROPIUM BROMIDE 0.5 MG/2.5 ML NEBU NEB PRN (20:45)
[2023-11-06 21:10] VITALS: BP 123/66; TEMP 99.1; O2SAT 91
[2023-11-06] MEDS: DOCUSATE SODIUM 100 MG CAPSULE PO SCH (22:00)
[2023-11-06] MEDS: methylPREDNISolone SOD SUCC 40 MG/ML VIAL IV SCH (22:00)
[2023-11-06] MEDS: BLOOD SUGAR DIAGNOSTIC 1 EACH STRIP VI SCH (22:00)
[2023-11-07] MEDS ORDERED: PANTOPRAZOLE SODIUM 40 MG TABLET.DR PO SCH (07:00)
== END 2023-11-06 22:25 | disposition left against medical advice (07) | DRG 140 ==
LOC: ER 15:47 → TELE3 21:01
PROVIDERS: ADMIT Internal Medicine; ATTEND Internal Medicine
DX: J44.1 Chronic obstructive pulmonary disease with (acute) exacerbation (principal); J45.901 Unspecified asthma with (acute) exacerbation; Z99.81 Dependence on supplemental oxygen; K76.0 Fatty (change of) liver, not elsewhere classified; R19.7 Diarrhea, unspecified; R11.2 Nausea with vomiting, unspecified; E09.9 Drug or chemical induced diabetes mellitus without complications; E78.5 Hyperlipidemia, unspecified; E87.6 Hypokalemia; G89.4 Chronic pain syndrome; M79.7 Fibromyalgia; M81.0 Age-related osteoporosis without current pathological fracture; R10.13 Epigastric pain; T38.0X5A Adverse effect of glucocorticoids and synthetic analogues, initial encounter; Y92.89 Other specified places as the place of occurrence of the external cause; J06.9 Acute upper respiratory infection, unspecified; K44.9 Diaphragmatic hernia without obstruction or gangrene; E66.01 Morbid (severe) obesity due to excess calories; Z68.34 Body mass index [BMI] 34.0-34.9, adult; L30.9 Dermatitis, unspecified; M94.0 Chondrocostal junction syndrome [Tietze]; G47.00 Insomnia, unspecified; F32.A Depression, unspecified; F41.9 Anxiety disorder, unspecified; Z88.1 Allergy status to other antibiotic agents; Z88.6 Allergy status to analgesic agent; Z91.040 Latex allergy status; Z88.0 Allergy status to penicillin; Z91.013 Allergy to seafood; Z28.310 Unvaccinated for COVID-19; Z79.84 Long term (current) use of oral hypoglycemic drugs; Z79.01 Long term (current) use of anticoagulants; Z87.11 Personal history of peptic ulcer disease; Z79.899 Other long term (current) drug therapy; R29.6 Repeated falls; R26.81 Unsteadiness on feet; Z87.891 Personal history of nicotine dependence; Z53.29 Procedure and treatment not carried out because of patient's decision for other reasons
CPT/HCPCS: 36415; 71045; 83605; 83690; 84484; 85025; 87040; 93005; A4606; A4663; G0378; J1815; J2270; J2405; J2920; J2930; J3475; J3490; J3590; J7040

== ENCOUNTER 2024-09-11 23:06 | Inpatient (IN) | payer OTHER ==
[~2024-09-11] VITALS: Ht 157.5 cm; Wt 95.3 kg
[~2024-09-11 23:06] MED LIST changes: -BREZTRI INH; -CIPR-263 PO; -FAMO20TA8 PO; -IPRA3AMP22 IH; -THEO400T PO
[2024-09-12 03:08] LABS: BASOPHILS # (AUTO) 0.1 K/UL (0.0-0.2); BASOPHILS % (AUTO) 0.7 % (0.0-2.0); DIFFERENTIAL COMMENT 0; EOSINOPHILS % (AUTO) 0.3 % (0.0-7.0); HEMATOCRIT 41.9 % (31.2-41.9); HEMOGLOBIN 13.4 g/dL (10.9-14.3); LYMPHOCYTES # (AUTO) 1.5 K/uL (0.8-4.8); LYMPHOCYTES % (AUTO) 18.3 % (20.5-51.5); MEAN CORPUSCULAR HGB CONC 32 g/dL (32.3-35.6); MEAN CORPUSCULAR VOLUME 81.1 fL (75.5-95.3); MONOCYTES # (AUTO) 0.8 K/uL (0.1-1.30); MONOCYTES % (AUTO) 9.4 % (0.0-11.0); NEUTROPHILS % (AUTO) 71.3 % (38.5-71.5); PLATELET COUNT (AUTO) 222 K/uL (179-408); RED BLOOD CELL COUNT(AUTO) 5.17 MIL/uL (3.63-4.92); RED CELL DISTRIBUTION WIDTH 18.8 % (12.3-17.7); WHITE BLOOD COUNT (AUTO) 8.4 K/uL (3.8-11.8)
[2024-09-12 03:20] LABS: CARBON DIOXIDE 27 mmol/L (21-32); CHLORIDE 105 mmol/L (98-107); CREATININE 0.9 mg/dL (0.6-1.3); GLUCOSE 135 mg/dL (74-106); POTASSIUM 4.5 mmol/L (3.5-5.1); SODIUM SERUM 143 mmol/L (136-145); UREA NITROGEN, BLOOD 21 mg/dL (7-18)
[2024-09-12 03:32] LABS: ALANINE AMINOTRANSFERASE 130 U/L (14-59); ALBUMIN 3.3 g/dL (3.4-5.0); ALKALINE PHOSPHATASE 106 U/L (50-136); ASPARTATE AMINOTRANSFERASE 73 U/L (15-37); BILIRUBIN,DIRECT 0.1 mg/dL (0.0-0.2); BILIRUBIN,TOTAL 0.3 mg/dL (0.2-1.0); NT-PRO BNP 44 pg/mL (0-125); TOTAL PROTEIN, SERUM 7.1 g/dL (6.4-8.2)
[2024-09-12] MEDS ORDERED: ONDANSETRON 4 MG/2 ML VIAL ONE (03:35)
[2024-09-12] MEDS ORDERED: MORPHINE SULFATE 4 MG/1 ML DISP.SYRIN ONE ×3 (03:35→18:24)
[2024-09-12] MEDS: ONDANSETRON 4 MG/2 ML VIAL IV ONE (03:45)
[2024-09-12] MEDS: MORPHINE SULFATE 2 MG/1 ML DISP.SYRIN IV ONE (03:45)
[2024-09-12] MEDS: CEFTRIAXONE 1 G in IV DEXTROSE 5% 50 ML IV ONE (04:30)
[2024-09-12] MEDS: IV NORMAL SALINE 1000 ML BAG IV ONE (04:30)
[2024-09-12] MEDS ORDERED: levoFLOXacin 500 MG/D5W 100 ML ONE (04:36)
[2024-09-12] MEDS ORDERED: levoFLOXacin 250MG /D5W 50 ML IV ONE (04:36)
[2024-09-12] MEDS ORDERED: CEFTRIAXONE /D5W 50ML IVPB **ER PYXIS IV ONE (04:36)
[2024-09-12] MEDS: levoFLOXacin 750 MG TABLET PO ONE (05:10)
[2024-09-12] MEDS: MORPHINE SULFATE 4 MG/1 ML DISP.SYRIN IV ONE ×2 (05:30→18:31)
[2024-09-12] MEDS ORDERED: MAGNESIUM HYDROXIDE 30 ML LIQUID UDC PO PRN (05:45)
[2024-09-12] MEDS ORDERED: ONDANSETRON 4 MG/2 ML VIAL IV PRN (05:45)
[2024-09-12] MEDS ORDERED: REMEDY ESSENTIAL ZINC PASTE 113 GM TP PRN (05:45)
[2024-09-12] MEDS: levoFLOXacin 750MG/D5W 750 MG in PREMIXED 1 EACH IV SCH (08:11)
[2024-09-12] MEDS: CEFTRIAXONE 1 G in IV DEXTROSE 5% 50 ML IV SCH (08:12)
[2024-09-12] MEDS ORDERED: ENOXAPARIN SODIUM 40 MG/0.4 ML DISP.SYRIN SQ ONE (08:14)
[2024-09-12] MEDS: ENOXAPARIN SODIUM 40 MG/0.4 ML DISP.SYRIN SQ SCH (08:15)
[2024-09-12] MEDS ORDERED: OXYCODONE/APAP 5-325 MG TABLET ONE (08:33)
[2024-09-12] MEDS: OXYCODONE/APAP 5-325 MG TABLET PO ONE (08:35)
[2024-09-12 09:11] LABS: *BILIRUBIN,URIN NEGATIVE (NEGATIVE); *CLARITY,URINE CLEAR (CLEAR); *COLOR,URINE YELLOW (YELLOW); *KETONES,URINE NEGATIVE (NEGATIVE); *PROTEIN,URINE NEGATIVE (NEGATIVE); *UROBILINOGEN,URINE 0.2 E.U./dl (NORMAL); LEUKOCYTE ESTERASE ,URINE NEGATIVE (NEGATIVE); NITRITE, URINE POSITIVE (NEGATIVE); UGLUCOSE NEGATIVE (NEGATIVE)
[2024-09-12 09:14] LABS: *BLOOD, URINE TRACE (NEGATIVE)
[2024-09-12 09:15] VITALS: O2SAT 93
[2024-09-12] MEDS: ALBUTEROL SULFATE 2.5 MG/3 ML NEBU NEB ONE ×2 (09:15)
[2024-09-12] MEDS: IPRATROPIUM BROMIDE 0.5 MG/2.5 ML NEBU NEB ONE (09:15)
[2024-09-12] MEDS ORDERED: IPRATROPIUM BROMIDE 0.5 MG/2.5 ML NEBU ONE (09:19)
[2024-09-12] MEDS ORDERED: ALBUTEROL SULFATE 2.5 MG/3 ML NEBU ONE (09:19)
[2024-09-12 09:25] VITALS: O2SAT 93; O2SAT 96
[2024-09-12 09:25] LABS: WBC,URINE 0-3 /HPF (0-3)
[2024-09-12 09:26] LABS: BACTERIA,URINE MANY /HPF (NONE SEEN); SQUAMOUS EPITHELIAL CELL,UR MODERATE /HPF (NONE SEEN)
[2024-09-12] MEDS ORDERED: MORPHINE SULFATE IR 30 MG TABLET ONE (10:10)
[2024-09-12] MEDS: MORPHINE SULFATE IR 30 MG TABLET PO PRN (10:28)
[2024-09-12] MEDS: methylPREDNISolone SOD SUCC 40 MG/ML VIAL IV SCH (14:12)
[2024-09-12 19:01] VITALS: BP 127/80; TEMP 98.4; O2SAT 95
[2024-09-12] MEDS ORDERED: CEFTRIAXONE 1 G in IV DEXTROSE 5% 50 ML IV SCH (19:10)
[2024-09-12] MEDS ORDERED: levoFLOXacin 750MG/D5W 750 MG in PREMIXED 1 EACH IV SCH (19:13)
[2024-09-12 19:37] VITALS: BP 137/80; TEMP 97.8; O2SAT 94
[2024-09-12 21:30] VITALS: O2SAT 96
[2024-09-12 21:40] VITALS: O2SAT 98
[2024-09-12] MEDS: IPRATROPIUM BROMIDE 0.5 MG/2.5 ML NEBU NEB PRN (21:50)
[2024-09-12] MEDS: ALBUTEROL SULFATE 2.5 MG/3 ML NEBU NEB PRN (21:50)
[2024-09-13] VITALS (10 sets, daily range): BP systolic 127–146; BP diastolic 63–95; TEMP 97.2–98.4; O2SAT 91–98
[2024-09-13] MEDS: MORPHINE SULFATE 4 MG/1 ML DISP.SYRIN IV PRN (01:12)
[2024-09-13 07:11] LABS: BASOPHILS % (AUTO) 0.2 % (0.0-2.0); HEMATOCRIT 35.3 % (31.2-41.9); HEMOGLOBIN 11.4 g/dL (10.9-14.3); LYMPHOCYTES # (AUTO) 1.2 K/uL (0.8-4.8); LYMPHOCYTES % (AUTO) 18.1 % (20.5-51.5); MEAN CORPUSCULAR HEMOGLOBIN 26.3 uug (24.7-32.8); MEAN CORPUSCULAR HGB CONC 32 g/dL (32.3-35.6); MEAN CORPUSCULAR VOLUME 81.4 fL (75.5-95.3); MONOCYTES # (AUTO) 0.4 K/uL (0.1-1.30); NEUTROPHILS % (AUTO) 75.7 % (38.5-71.5); PLATELET COUNT (AUTO) 185 K/uL (179-408); RED BLOOD CELL COUNT(AUTO) 4.34 MIL/uL (3.63-4.92); RED CELL DISTRIBUTION WIDTH 19.2 % (12.3-17.7); WHITE BLOOD COUNT (AUTO) 6.7 K/uL (3.8-11.8)
[2024-09-13 07:26] LABS: DIFFERENTIAL COMMENT 1
[2024-09-13 07:33] LABS: CALCIUM 8.5 mg/dL (8.5-10.1); CREATININE 0.7 mg/dL (0.6-1.3); POTASSIUM 4.4 mmol/L (3.5-5.1)
[2024-09-13 08:11] LABS: MAGNESIUM 1.9 mg/dL (1.8-2.4); PHOSPHOROUS 3.2 mg/dL (2.5-4.9)
[2024-09-13] MEDS ORDERED: levoFLOXacin 750MG/D5W 750 MG in PREMIXED 1 EACH IV SCH (09:00)
[2024-09-13] MEDS ORDERED: CEFTRIAXONE 1 G in IV DEXTROSE 5% 50 ML IV SCH (09:00)
[2024-09-13] MEDS: ENOXAPARIN SODIUM 40 MG/0.4 ML DISP.SYRIN SQ SCH (09:37)
[2024-09-13] MEDS ORDERED: Medication Not On Formulary EA (Escitalopram Oxalate (Lexapro) 20 MG) PO SCH (10:00)
[2024-09-13] MEDS: MONTELUKAST SODIUM 10 MG TABLET PO SCH (12:28)
[2024-09-13] MEDS: ESCITALOPRAM OXALATE 10 MG TABLET PO SCH (12:28)
[2024-09-13] MEDS: CEFTRIAXONE 1 G in IV DEXTROSE 5% 50 ML IV SCH (20:39)
[2024-09-13] MEDS: LEVOFLOXACIN/D5W 250 MG in PREMIX 1 EA IV SCH (21:27)
[2024-09-13] MEDS: ONDANSETRON 4 MG/2 ML VIAL IV PRN (22:13)
[2024-09-14] VITALS (12 sets, daily range): BP systolic 112–140; BP diastolic 74–81; TEMP 98–98.2; O2SAT 95–99
[2024-09-14 07:48] LABS: CALCIUM 9.2 mg/dL (8.5-10.1); CREATININE 0.7 mg/dL (0.6-1.3); POTASSIUM 4.3 mmol/L (3.5-5.1)
[2024-09-14 09:15] LABS: BASOPHILS % (AUTO) 0.1 % (0.0-2.0); HEMATOCRIT 36.1 % (31.2-41.9); HEMOGLOBIN 11.7 g/dL (10.9-14.3); LYMPHOCYTES # (AUTO) 1.6 K/uL (0.8-4.8); LYMPHOCYTES % (AUTO) 12.5 % (20.5-51.5); MEAN CORPUSCULAR HEMOGLOBIN 26.2 uug (24.7-32.8); MEAN CORPUSCULAR HGB CONC 32 g/dL (32.3-35.6); MEAN CORPUSCULAR VOLUME 80.9 fL (75.5-95.3); MONOCYTES # (AUTO) 0.9 K/uL (0.1-1.30); MONOCYTES % (AUTO) 6.7 % (0.0-11.0); NEUTROPHILS # (AUTO) 10.4 K/uL (1.8-8.9); NEUTROPHILS % (AUTO) 80.7 % (38.5-71.5); PLATELET COUNT (AUTO) 208 K/uL (179-408); RED BLOOD CELL COUNT(AUTO) 4.46 MIL/uL (3.63-4.92); RED CELL DISTRIBUTION WIDTH 18.8 % (12.3-17.7); WHITE BLOOD COUNT (AUTO) 12.9 K/uL (3.8-11.8)
[2024-09-14 09:19] LABS: DIFFERENTIAL COMMENT 1
[2024-09-14] MEDS ORDERED: methylPREDNISolone SOD SUCC 40 MG/ML VIAL IV SCH (09:30)
[2024-09-14] MEDS: IPRATROPIUM BROMIDE 0.5 MG/2.5 ML NEBU NEB SCH (13:40)
[2024-09-14] MEDS: ALBUTEROL SULFATE 2.5 MG/3 ML NEBU NEB SCH (13:40)
[2024-09-14] MEDS: methylPREDNISolone SOD SUCC 40 MG/ML VIAL IV SCH (17:32)
[2024-09-14] MEDS: levoFLOXacin 750 MG TABLET PO SCH (21:39)
[2024-09-15] VITALS (7 sets, daily range): BP systolic 117–155; BP diastolic 65–100; TEMP 98.1–98.7; O2SAT 95–98
[2024-09-15 06:46] LABS: BASOPHILS % (AUTO) 0.1 % (0.0-2.0); HEMATOCRIT 36.2 % (31.2-41.9); HEMOGLOBIN 11.9 g/dL (10.9-14.3); LYMPHOCYTES # (AUTO) 2.1 K/uL (0.8-4.8); LYMPHOCYTES % (AUTO) 18.3 % (20.5-51.5); MEAN CORPUSCULAR HEMOGLOBIN 26.5 uug (24.7-32.8); MEAN CORPUSCULAR HGB CONC 33 g/dL (32.3-35.6); MEAN CORPUSCULAR VOLUME 80.5 fL (75.5-95.3); MONOCYTES # (AUTO) 0.9 K/uL (0.1-1.30); MONOCYTES % (AUTO) 7.6 % (0.0-11.0); NEUTROPHILS # (AUTO) 8.6 K/uL (1.8-8.9); PLATELET COUNT (AUTO) 210 K/uL (179-408); RED CELL DISTRIBUTION WIDTH 19.1 % (12.3-17.7); WHITE BLOOD COUNT (AUTO) 11.6 K/uL (3.8-11.8)
[2024-09-15 06:55] LABS: DIFFERENTIAL COMMENT 1
[2024-09-15] MEDS: ACETAMINOPHEN 325 MG TABLET PO PRN (09:49)
[2024-09-15] MEDS ORDERED: LEVO750T46 PO (12:27)
== END 2024-09-15 13:45 | disposition home or self-care (01) | DRG 140 ==
LOC: ER 23:06 → TELE3 09-12 18:18
PROVIDERS: ADMIT Nurse Practitioner Acute Care; ATTEND Nurse Practitioner Acute Care
DX: J44.1 Chronic obstructive pulmonary disease with (acute) exacerbation (principal); E87.20 Acidosis, unspecified; J15.9 Unspecified bacterial pneumonia; E66.01 Morbid (severe) obesity due to excess calories; E11.9 Type 2 diabetes mellitus without complications; J32.9 Chronic sinusitis, unspecified; Z99.81 Dependence on supplemental oxygen; J20.9 Acute bronchitis, unspecified; J44.0 Chronic obstructive pulmonary disease with (acute) lower respiratory infection; Z68.38 Body mass index [BMI] 38.0-38.9, adult; N39.0 Urinary tract infection, site not specified; E78.5 Hyperlipidemia, unspecified; F17.200 Nicotine dependence, unspecified, uncomplicated; F32.A Depression, unspecified; G47.33 Obstructive sleep apnea (adult) (pediatric); G89.4 Chronic pain syndrome; K42.9 Umbilical hernia without obstruction or gangrene; M79.7 Fibromyalgia; M81.0 Age-related osteoporosis without current pathological fracture; Z79.01 Long term (current) use of anticoagulants; Z79.84 Long term (current) use of oral hypoglycemic drugs; Z79.899 Other long term (current) drug therapy; Z88.0 Allergy status to penicillin; Z86.718 Personal history of other venous thrombosis and embolism; Z87.11 Personal history of peptic ulcer disease; Z88.1 Allergy status to other antibiotic agents; Z83.2 Family history of diseases of the blood and blood-forming organs and certain disorders involving the immune mechanism; Z91.018 Allergy to other foods; Z91.040 Latex allergy status
CPT/HCPCS: 36415; 70220; 71045; 83605; 83735; 84100; 84484; 85025; 85730; 87040; 93307; 94640; 94760; A4663; G0378; J0696; J1650; J1956; J2270; J2405; J2919; J3590; J7040